=== PATIENT | female | born 1950 | race Caucasian/White ===

== ENCOUNTER 2019-11-09 10:44 | Outpatient (CLI) | payer MEDICARE, OTHER, SELFPAY ==
--- NOTE | 2019-11-09 10:59 | MM_ITS ---
WS: [id number] SCREENING DIGITAL MAMMOGRAM WITH CAD HISTORY: SCREENING COMPARISON: 07/14/2018, 06/22/2018, 04/09/2017 Bilateral CC and MLO views submitted. Computer aided detection analyzed. Breast composition: There are scattered areas of fibroglandular density. No suspicious masses, microc alcifications or architectural distortion. Scattered asymmetries within each breast are stable. MM/[place] [id number] IMPRESSION: BI-RADS: 2-Benign FOLLOW UP: 1 Year Follow-up
== END 2019-11-09 10:45 | disposition home or self-care (01) ==
PROVIDERS: Family Provider Nurse Practitioner Family; PCP Family Medicine; Visit Provider Nurse Practitioner Family
DX: Z12.31 Encounter for screening mammogram for malignant neoplasm of breast (principal)
CPT/HCPCS: 77067

== ENCOUNTER → 2019-12-22 10:24 | Outpatient (BNVA) | payer MEDICARE, OTHER, SELFPAY | PROVIDERS: Family Provider Nurse Practitioner Family; PCP Internal Medicine; Visit Provider Nurse Practitioner | DX: F33.2 Major depressive disorder, recurrent severe without psychotic features (principal) | CPT/HCPCS: 90832; 99214 ==

== ENCOUNTER 2019-12-29 07:03 | Outpatient (CLI) | payer MEDICARE, OTHER, SELFPAY ==
--- NOTE | 2019-12-29 07:19 | ECG_ITS ---
NAME OF STUDY: LEXISCAN SESTAMIBI STRESS TEST INDICATION: Chest Pain PROCEDURE: At the baseline, the blood pressure was 138/106 mmHg, oxygen saturation 97% with a heart rate of 68 bpm. The electrocardiogram showed normal sinus rhythm, normal axis with normal ST and T's. The Lexiscan was infused over a period of 20 seconds. A total of 0.4 milligrams of Lexiscan was infused. The stress phase was continued for a total of 5 minutes. Heart rate at the end of the stress phase was 87 bpm, oxygen saturation 95% with a blood pressure 150/97 mmHg. The EKG at the peak infusion revealed no significant ST-T wave changes. Sestamibi was injected 20 seconds after the Lexiscan infusion. Blood pressure at the end of the recovery phase was 148/98 mmHg, oxygen saturation 95% with a heart rate of 85 beats per minute. CONCLUSION: 1. Normal EKG response to LexiScan infusion. 2. No LexiScan induced chest pain or cardiac arrhythmia. 3. Normal blood pressure and heart rate response. 4. Sestamibi/sestamibi perfusion scan pending; see separate report. Electronically Signed On 01-03-2020 13:43:11 CDT by Hetal Mason M.D. [id number]
--- NOTE | 2019-12-29 07:20 | NMCV_ITS ---
NM katharine perf SPECT r/s* [id number] Makayla Palmer Age: 69 Gender: F : 1950 Exam Date: 12/29/2019 08:45 Ordering Phys: Polly Morales [employer]OLITION EXPERT Technologist: VJ Lott Exam Location: [facility] Indications: CHEST PAIN STRESS TEST Please see separate stress test report in [facility] for full findings IMAGE PROTOCOL Rest/Stress 1 Lexiscan Day Radiopharmaceutical Dose (mCi) Administration Site Administered by Rest: Tc-99m 10.7 IV VJ Mandujano Sestamibi Stress:Tc-99m 31.7 IV VJ Mandujano Sestamibi Rest: 12/29/2019 60 Discovery 630 Stress: 12/29/2019 Discovery 630 0.4mg Lexiscan. Images obtained in supine and prone position. SPECT RESULTS Technical Quality: Excellent Raw Data Analysis: Normal Image Corrections: No attenuation or motion correction applied Summed Stress Score: 1 Summed Rest Score: 1 Summed Difference Score: 0 PERFUSION FINDINGS Medium-size area of fixed perfusion defect noted in the anteroseptal region from mid to distal segment suggestive of old myocardial infarction versus scarring. FUNCTIONAL RESULTS (calculated via Gated SPECT) Stress Image LV EF (%): 73 Stress EDV (mL):86 TID: 1.02 Stress ESV (mL):23 Rest Image LV EF (%): 73 FUNCTIONAL FINDINGS: There is normal left ventricular systolic function. IMPRESSIONS Medium-size area of old myocardial infarction versus scarring noted in mid to distal anteroseptal wall without curt-infarct ischemia. There is no wall motion abnormality. Ejection fraction is normal 73%. EKG segment will be documented separately Rebecca Arredondo MD (Electronically Signed) Final Date: 29 December 2019 19:10 S
[2019-12-29 07:35] VITALS: BMI 36.6
[2019-12-29] MEDS: regadenoson 0.4 Mg/5 ml Syringe IVP (09:58)
[2019-12-29 10:20] VITALS: BP 151/95; PULSE 84
== END 2019-12-29 07:04 | disposition home or self-care (01) ==
LOC: CDL 07:05
PROVIDERS: Family Provider Nurse Practitioner Family; PCP Internal Medicine; Visit Provider Nurse Practitioner Family
DX: I25.2 Old myocardial infarction (principal); R07.9 Chest pain, unspecified
CPT/HCPCS: 78452; 93017; A9500; J2785

== ENCOUNTER 2019-12-30 14:36 | Outpatient (CLI) | payer MEDICARE, OTHER, SELFPAY ==
--- NOTE | 2019-12-30 14:48 | XR_ITS ---
WS: [id number] SCREENING DEXA SCAN [employer] CLINICAL INFORMATION: OSTEOPOROSIS SCREENING, ASYMPTOMATIC POSTMENOPAUSAL STATUS COMPARISON: February 02, 2018 FINDINGS: Left forearm bone mineral density measures 0.75 g/sq cm with a T score -1.4 and Z score of 0.1 Left femoral neck bone mineral density measures 0.779 g/cm2. This corresponds to a T score of -1.8 an d Z score of -1.0. Right femoral neck bone mineral density measures 0.733 g/cm2. This corresponds to a T score -2.2of an d Z score of -1.4. Mean femoral neck bone mineral density measures 0.756 g/cm2. This corresponds to a T score of -2.0 an d Z score of -1.2. XR/XR DEXA axial skeleton* [id number] IMPRESSION: Osteopenia Patient's FRAX calculated 10 year probability for major osteoporotic fracture i s 17.9 % and osteoporotic hip fracture is 3.1%. Bone mineral density in the forearm has decreased -5.4% and increased 4.4% in t he femoral necks since 2018.
== END 2019-12-30 14:37 | disposition home or self-care (01) ==
LOC: RADWPI 14:40
PROVIDERS: Family Provider Nurse Practitioner Family; PCP Internal Medicine; Visit Provider Internal Medicine
DX: Z13.820 Encounter for screening for osteoporosis (principal); Z78.0 Asymptomatic menopausal state
CPT/HCPCS: 77080

== ENCOUNTER → 2020-01-12 09:20 | Outpatient (BNVA) | payer MEDICARE, OTHER, SELFPAY | PROVIDERS: Family Provider Nurse Practitioner Family; PCP Internal Medicine; Visit Provider Nurse Practitioner | DX: F33.2 Major depressive disorder, recurrent severe without psychotic features (principal) | CPT/HCPCS: 99213 ==

== ENCOUNTER 2020-02-09 11:27 | Outpatient (CLI) | payer MEDICARE, OTHER, SELFPAY ==
--- NOTE | 2020-02-09 11:34 | XR_ITS ---
WS: [id number] RIGHT RIBS, MULTIPLE VIEWS WITH PA CHEST HISTORY: RIB TENDERNESS COMPARISON: 10/06/2019 Lungs and mediastinum: Mild hyperinflated lungs. No pneumothorax or pulmonary contusion. Ribs: No rib fractures or bone destruction identified. XR/XR ribs RT mn 3V w CXR1V [id number] IMPRESSION: No RIGHT rib fractures identified.
== END 2020-02-09 11:28 | disposition home or self-care (01) ==
LOC: RADWPI 11:32
PROVIDERS: Family Provider Nurse Practitioner Family; PCP Internal Medicine; Visit Provider Internal Medicine
DX: R07.81 Pleurodynia (principal)
CPT/HCPCS: 71101

== ENCOUNTER → 2020-02-22 07:41 | Outpatient (BNVA) | payer MEDICARE, OTHER, SELFPAY | PROVIDERS: Family Provider Nurse Practitioner Family; PCP Internal Medicine; Visit Provider Nurse Practitioner | DX: F33.2 Major depressive disorder, recurrent severe without psychotic features (principal) | CPT/HCPCS: 99214 ==

== ENCOUNTER → 2020-02-27 08:30 | Outpatient (BNVA) | payer MEDICARE, OTHER, SELFPAY | PROVIDERS: Family Provider Nurse Practitioner Family; PCP Internal Medicine; Referring Provider Internal Medicine; Visit Provider Podiatrist Foot & Ankle Surgery | DX: M21.42 Flat foot [pes planus] (acquired), left foot (principal); M21.41 Flat foot [pes planus] (acquired), right foot; M85.872 Other specified disorders of bone density and structure, left ankle and foot; M85.871 Other specified disorders of bone density and structure, right ankle and foot; M20.12 Hallux valgus (acquired), left foot; M20.11 Hallux valgus (acquired), right foot | CPT/HCPCS: 73630 ==

== ENCOUNTER 2020-03-05 15:56 | Outpatient (CLI) | payer MEDICARE, OTHER, SELFPAY ==
--- NOTE | 2020-03-05 16:02 | USCV_ITS ---
Makayla Palmer Age: 69 Gender: F : 1950 Exam Date: 03/05/2020 16:16 Ordering Phys: Shellie Jarvis MD Technologist: Justice Tejada Exam Location: [facility] [place] Indication: EF BP: 125 / 80 HR: 76 Rhythm: Sinus Technical Quality: Fair MEASUREMENTS (Male / Female) Normal Values 2D ECHO LV Diastolic Diameter PLAX 4.2 cm 4.2 - 5.9 / 3.9 - 5.3 cm LV Systolic Diameter PLAX 2.8 cm IVS Diastolic Thickness 1.2 cm 0.6 - 1.0 / 0.6 - 0.9 cm IVS Systolic Thickness 1.2 cm LVPW Diastolic Thickness 0.8 cm 0.6 - 1.0 / 0.6 - 0.9 cm LVPW Systolic Thickness 1.1 cm LVOT Diameter 2.1 cm LV Ejection Fraction 2D Teich 63.1 % LV Ejection Fraction MOD 2C 67.5 % LV Ejection Fraction 2C AL 68.4 % LA Diameter 3.8 cm LA Width 3.9 cm LA Height 4.5 cm RA Width 3.1 cm RA Height 3.7 cm Aorta at Sinotubular Diameter 2.7 cm M-MODE LV Diastolic Diameter MM 4.6 cm 4.2 - 5.9 / 3.9 - 5.3 cm LV Systolic Diameter MM 2.7 cm LV Ejection Fraction MM Teich 73.5 % IVS Diastolic Thickness MM 0.9 cm 0.6 - 1.0 / 0.6 - 0.9 cm IVS Systolic Thickness MM 1.4 cm LVPW Diastolic Thickness MM 1.1 cm 0.6 - 1.0 / 0.6 - 0.9 cm LVPW Systolic Thickness MM 1.5 cm RV Diastolic Diameter MM 0.3 cm Aortic Annulus Diameter 3.3 cm LA Ao Ratio MM 1.1 MV E Point Septal Separation 0.8 cm DOPPLER AV Peak Velocity 204.0 cm/s LVOT Peak Velocity 146.0 cm/s AV Area Cont Eq vti 2.3 cm squared AV Area Cont Eq pk 2.4 cm squared MV Area PHT 4.3 cm squared Mitral E to A Ratio 0.9 MV E' Velocity 12.0 cm/s Mitral E to MV E' Ratio 8.8 Mitral E to LV E' Lateral Ratio 6.9 Mitral E to LV E' Septal Ratio 12.4 TR Peak Velocity 209.0 cm/s TR Peak Gradient 17.5 mmHg TV Peak E Velocity 79.0 cm/s Right Atrial Pressure 3.0 mmHg Pulmonary Artery Systolic Pressu 20.5 mmHg FINDINGS Left Ventricle Normal left ventricular size and systolic function, EF 60 %. No regional wall motion abnormalities. Right Ventricle Normal right ventricular size and systolic function. Right Atrium The right atrium is normal in size. Left Atrium The left atrium is normal in size. Mitral Valve Thickened mitral valve. Mild mitral annular calcification. Aortic Valve Thickened aortic valve. Tricuspid Valve Mild tricuspid valve regurgitation. Estimated pulmonary artery peak systolic pressure was 21 mmHg Pulmonic Valve Structurally normal pulmonic valve without significant stenosis. There is no pulmonic regurgitation. Pericardium Normal pericardium without effusion. Aorta Normal aortic annulus size. CONCLUSIONS Normal left ventricular size and systolic function, EF 60 %. No regional wall motion abnormalities. Thickened mitral valve. Mild mitral annular calcification. Thickened aortic valve. Mild tricuspid valve regurgitation. Estimated pulmonary artery peak systolic pressure was 21 mmHg There is no pericardial effusion. There are no intracardiac masses. Possibly no significant change, compared to the previous study from 11/10/2017-exact comparison is difficult because of the change in the technical quality Dr Mallory Hudson MD FAC (Electronically Signed) Final Date: 06 Mar 2020 17:58 S
== END 2020-03-05 15:57 | disposition home or self-care (01) ==
LOC: RAD 16:00
PROVIDERS: PCP Internal Medicine; Visit Provider Internal Medicine
DX: I50.9 Heart failure, unspecified (principal); I08.1 Rheumatic disorders of both mitral and tricuspid valves
CPT/HCPCS: 93306

== ENCOUNTER 2020-03-16 15:02 | Outpatient (CLI) | payer MEDICARE, OTHER, SELFPAY ==
--- NOTE | 2020-03-16 15:08 | CT_ITS ---
WS: [id number] CT NECK TECHNIQUE: Noncontrast CT of the neck with coronal and sagittal reformatted images. CLINICAL INFORMATION: OTALGIA RIGHT EAR COMPARISON: CTA 07/06/2017 and 03/05/2017. DLP: 2699.[address] scans at [facility] use at least one of these dose optimization techniques: automat ed exposure control; mA and/or kV adjustment per patient size (includes targeted exams where dose is matched to clinical indication); or iterative reconstruction. FINDINGS: Parotid glands are normal. Submandibular glands are normal. No evidence of supraglottic or glottic ma ss. Normal parapharyngeal fat. Stable calcified lower pole right thyroid nodule measuring 2.1 cm. Sma ll nodules in the left thyroid lobe. Findings appear stable since 2017. Tongue base appears normal. Normal parapharyngeal fat. No evidence of supraglottic or glottic mass. N ormal epiglottis. Normal piriform sinuses. Subglottic airway is normal. Partially visualized intracranial contents are normal. Moderate to advanced spondylitic changes cervi mary spine with moderate central canal stenosis at C5-C6 and C6-C7. CT/CT neck wo con [id number] IMPRESSION: 1. Mastoid air cells are well aerated. Posterior nasopharynx is normal in appe arance. Normal parapharyngeal fat. 2. Salivary glands are normal in appearance. 3. No evidence of supraglottic or glottic mass. Normal subglottic airway. 4. No cervical lymphadenopathy. 5. Stable calcified right thyroid nodule measuring 2.0 CM. 6. Paranasal sinuses are well aerated. 7. Moderate central canal stenosis due to disc osteophyte complexes at C5-C6 a nd C6-C7. This can be followed up with MRI without gadolinium enhancement.
== END 2020-03-16 15:03 | disposition home or self-care (01) ==
LOC: RADWPI 15:06
PROVIDERS: PCP Internal Medicine; Visit Provider Specialist
DX: H92.01 Otalgia, right ear (principal); E04.1 Nontoxic single thyroid nodule; M25.78 Osteophyte, vertebrae; M48.02 Spinal stenosis, cervical region
CPT/HCPCS: 70490

== ENCOUNTER → 2020-03-21 07:43 | Outpatient (BNVA) | payer MEDICARE, OTHER, SELFPAY | PROVIDERS: PCP Internal Medicine; Visit Provider Nurse Practitioner | DX: F33.2 Major depressive disorder, recurrent severe without psychotic features (principal) | CPT/HCPCS: 99214 ==

== ENCOUNTER 2020-03-28 08:31 | Outpatient (CLI) | payer MEDICARE, OTHER, SELFPAY ==
--- NOTE | 2020-03-28 08:46 | CT_ITS ---
WS: [id number] CT CHEST TECHNIQUE: Noncontrast CT of the chest with coronal and sagittal reformatted images. CLINICAL INFORMATION: SHORTNESS OF BREATH COMPARISON: May 06, 2018 and CTA chest November 25, 2018 DLP: 924.[address] scans at [facility] use at least one of these dose optimization techniques: automat ed exposure control; mA and/or kV adjustment per patient size (includes targeted exams where dose is matched to clinical indication); or iterative reconstruction. FINDINGS: Mild chronic emphysematous changes. No acute pulmonary infiltrates. Large esophageal hiatal hernia wi th partial intrathoracic stomach appears unchanged since November 25, 2018. No suspicious pulmonary p arenchymal abnormalities. No axillary lymphadenopathy. In particular no pathologic mass or lesion in the region of the right ax illa. No mediastinal or hilar lymphadenopathy. Calcified right thyroid nodule appears unchanged from previous measuring 2.1 CM. Adrenal glands are normal. Cholelithiasis. Postoperative changes pedicle screw fixation partially visualized. Disc space narrowing T12-L1 with v acuum disc phenomenon and endplate degenerative changes. CT/CT chest wo con [id number] IMPRESSION: 1. Mild chronic emphysematous changes. No suspicious pulmonary parenchymal abn ormalities. 2. Large esophageal hiatal hernia appears unchanged with partial intrathoracic stomach. 3. No mediastinal or hilar lymphadenopathy. 4. No suspicious lesions in the right axillary region. No axillary or mediasti nal lymphadenopathy. 5. Calcified nodule right thyroid measuring 2.1 cm is unchanged. 6. Cholelithiasis. This can be followed up with ultrasound.
== END 2020-03-28 08:32 | disposition home or self-care (01) ==
LOC: RAD 08:36 → RADWPI 08:45
PROVIDERS: Family Provider Internal Medicine; PCP Internal Medicine; Visit Provider Internal Medicine
DX: R06.02 Shortness of breath (principal); J43.9 Emphysema, unspecified; K44.9 Diaphragmatic hernia without obstruction or gangrene; E04.1 Nontoxic single thyroid nodule; K80.20 Calculus of gallbladder without cholecystitis without obstruction
CPT/HCPCS: 71250

== ENCOUNTER 2020-04-02 06:00 | Outpatient (RCR) | payer MEDICARE, OTHER, SELFPAY | END 2020-06-05 23:00 | disposition home or self-care (01) | LOC: SPT 06:00 | PROVIDERS: PCP Internal Medicine; Referring Provider Internal Medicine; Visit Provider Internal Medicine | DX: G89.29 Other chronic pain (principal); R20.2 Paresthesia of skin; M54.89 Other dorsalgia | CPT/HCPCS: 97110; 97140; 97161; 97164; 97530 ==

== ENCOUNTER 2020-04-11 15:35 | Outpatient (CLI) | payer MEDICARE, OTHER, SELFPAY ==
--- NOTE | 2020-04-11 | XRR_ITS ---
PROCEDURE INFORMATION: Exam: XR Lumbosacral Spine, 2 or 3 Views Exam date and time: 04/11/2020 4:09 PM Age: 69 years old Clinical indication: Low back pain; Additional info: Pain in back TECHNIQUE: Imaging protocol: XR of the lumbosacral spine, 2 or 3 views. COMPARISON: CR Pelvis AP 1 or 2 views* [id number] 05/04/2018 5:01 PM FINDINGS: Vertebrae: Generalized osteopenia and osteoarthritis is seen. There is 1st degree spondylolisthesis L5-S1 there is fusion present L4-L5, L3-L4, L2-L3 vertebral levels. Postsurgical hardware is seen a with metallic transpedicular screws and rods in place at the T12 to the L5 level. The hardware does not show deformity displacement or fracture. Laminectomy defect is seen in the lower lumbar spine. Soft tissues: Unremarkable. XR/XR lumbar spine 2-3V* [id number] IMPRESSION: 1. Osteopenia and osteoarthritis. 2. Spondylolisthesis L5-S1. 3. Operative fusion at multiple levels as described. 4. Metallic hardware at multiple levels as described. 5. Laminectomy defects lower lumbar spine.
--- NOTE | 2020-04-11 | XRR_ITS ---
PROCEDURE INFORMATION: Exam: XR Thoracic Spine, 3 Views Exam date and time: 04/11/2020 4:09 PM Age: 69 years old Clinical indication: Pain in thoracic spine; Additional info: Pain in back TECHNIQUE: Imaging protocol: XR of the thoracic spine, 3 views. COMPARISON: No relevant prior studies available. FINDINGS: Vertebrae: There is osteopenia and moderate osteoarthritis seen. No acute fracture. Normal alignment. Metallic transpedicular screws and rods are present in the upper lumbar spine without evidence of displacement or fracture. Soft tissues: Unremarkable. XR/XR thoracic spine 3V* [id number] IMPRESSION: 1. No acute bone abnormality. 2. Osteopenia and osteoarthritis of the dorsal spine 3. Postsurgical hardware is lumbar spine
== END 2020-04-11 15:36 | disposition home or self-care (01) ==
LOC: RAD 15:41
PROVIDERS: PCP Internal Medicine; Visit Provider Internal Medicine
DX: M54.9 Dorsalgia, unspecified (principal); M85.88 Other specified disorders of bone density and structure, other site; M47.899 Other spondylosis, site unspecified; M54.5 Low back pain; M43.17 Spondylolisthesis, lumbosacral region; Z98.1 Arthrodesis status
CPT/HCPCS: 72072; 72100

== ENCOUNTER 2020-04-18 06:00 | Outpatient (RCR) | payer MEDICARE, OTHER, SELFPAY | END 2020-05-18 23:59 | disposition home or self-care (01) | LOC: SPT 06:00 | PROVIDERS: PCP Internal Medicine; Referring Provider Internal Medicine; Visit Provider Internal Medicine | DX: R20.2 Paresthesia of skin (principal); M54.89 Other dorsalgia | CPT/HCPCS: 97110; 97530 ==

== ENCOUNTER → 2020-05-07 11:31 | Outpatient (BNVA) | payer MEDICARE, OTHER, SELFPAY | PROVIDERS: PCP Internal Medicine; Visit Provider Dermatology | DX: L72.0 Epidermal cyst (principal); D23.9 Other benign neoplasm of skin, unspecified; L82.1 Other seborrheic keratosis; L82.0 Inflamed seborrheic keratosis; L73.8 Other specified follicular disorders | CPT/HCPCS: 10040; 17000; 17003; 99203 ==

== ENCOUNTER → 2020-05-17 07:37 | Outpatient (BNVA) | payer MEDICARE, OTHER, SELFPAY | PROVIDERS: PCP Internal Medicine; Visit Provider Nurse Practitioner | DX: F33.2 Major depressive disorder, recurrent severe without psychotic features (principal); F41.1 Generalized anxiety disorder | CPT/HCPCS: 99213 ==

== ENCOUNTER → 2020-07-11 07:35 | Outpatient (BNVA) | payer MEDICARE, OTHER, SELFPAY | PROVIDERS: PCP Internal Medicine; Visit Provider Nurse Practitioner | DX: F33.2 Major depressive disorder, recurrent severe without psychotic features (principal); F41.1 Generalized anxiety disorder | CPT/HCPCS: 99214 ==

== ENCOUNTER → 2020-08-16 09:16 | Outpatient (BNVA) | payer MEDICARE, OTHER, SELFPAY | PROVIDERS: PCP Internal Medicine; Visit Provider Nurse Practitioner | DX: F33.2 Major depressive disorder, recurrent severe without psychotic features (principal) | CPT/HCPCS: 99214 ==

== ENCOUNTER → 2020-08-22 13:45 | Outpatient (BNVA) | payer MEDICARE, OTHER, SELFPAY | PROVIDERS: PCP Internal Medicine; Visit Provider Surgery | DX: Z11.59 Encounter for screening for other viral diseases (principal); D64.9 Anemia, unspecified | CPT/HCPCS: 87635 ==

== ENCOUNTER 2020-08-28 09:07 | Day surgery (SDC) | payer MEDICARE, OTHER, SELFPAY ==
[2020-08-23 13:06] VITALS: BMI 34.9
--- NOTE | 2020-08-28 09:10 | P.HP_ITS ---
Same Day Surgery H&P Indication for Procedure/HPI DATE OF PROCEDURE: August 28, 2020 CHIEF COMPLAINT/INDICATIONFOR SURGICAL PROCEDURE: anemia PREOP DIAGNOSIS: anemia PLANNED PROCEDRUE: Operation Date: 08/28/20 10:00 Proposed Procedures p EGD [id number] D64.9(Not Applicable) - Alne Hurtado MD s Colonoscopy(Not Applicable) - Alen Hurtado MD Medications/Allergies* Home Medications Medication Instructions Recorded Confirmed Type atorvastatin 10 mg tablet 10 mg PO DAILY 12/22/19 08/23/20 History carvedilol 6.25 mg tablet 6.25 mg PO BID 01/11/20 08/23/20 History cholecalciferol (vitamin D3) 1,250 1,250 mcg PO DAILY 01/11/20 08/23/20 History mcg (50,000 unit) capsule losartan 25 mg tablet 50 mg PO DAILY tab 01/11/20 08/23/20 History calcium carbonate 600 mg calcium 600 mg PO DAILY 02/27/20 08/23/20 History (1,500 mg) tablet alendronate 70 mg tablet 70 mg PO .weekly tab 04/16/20 08/23/20 History cetirizine 10 mg tablet 10 mg PO DAILY PRN tab 07/27/20 08/23/20 History iron 325 mg PO BID 08/23/20 08/23/20 History Allergies/Adverse Reactions Allergy/AdvReac Type Severity Reaction Status Date / Time Iodinated Contrast Media Allergy ALGY-Swell Verified 08/15/20 10:46 Lip/Tongue/Throat Penicillins Allergy ALGY-Hives Verified 08/15/20 10:46 hydrocodone AdvReac ADR-Itching Verified 08/15/20 10:46 Pertinent History/Comorbid Conditions* Medical History (Updated 07/27/20 @ 15:07 by Alen Hurtado MD) Chronic back pain Congestive heart failure Diabetes mellitus Fibromyalgia Hiatal hernia Major depressive disorder, recurrent severe without psychotic features Myocardial infarct Osteoarthritis Osteopenia Sleep apnea Surgical History (Updated 07/27/20 @ 12:25 by Alen Hurtado MD) H/O esophagogastroduodenoscopy S/P bladder repair 2005 S/P carpal tunnel release S/P hysterectomy 2006 S/P left knee arthroscopy 2005 S/P lumbar fusion 05/29/16; 01/15/17 S/P rotator cuff repair Left S/P shoulder surgery Right S/P trigger finger release 2008 S/P wrist surgery bilateral Status post colonoscopy Family History (Updated 07/27/20 @ 12:17 by Shelby Blum LPN) Diabetes CAD (coronary artery disease) Cancer Father prostate, liver Mother breast and kidney Brother 2 brothers prostate, and one had breast cancer Hypertension Denies family history of Anesthesia complication Bleeding disorder Social History Smoking and tobacco status: never smoked Alcohol intake: never Household members: spouse Housing: House Marital status: 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
[2020-08-28 09:43] VITALS: BP 96/65; PULSE 79; RESP 18; TEMP 36.6; O2SAT 96
[2020-08-28] MEDS: sodium chloride 0.9% 1,000 ML 30 ML IV (09:46)
[2020-08-28 09:50] LABS: Glucose Point of Care 110 mg/dL (70-110)
--- NOTE | 2020-08-28 09:53 | ANES.PREANE2 ---
Pre-Anesthetic Assessment Pre-Anesthetic Assessment: Height/Weight: Height 1.55 m Weight 83.915 kg Temp Pulse Resp BP Pulse Ox 97.9 F 79 18 96/65 96 08/28/20 09:43 08/28/20 09:43 08/28/20 09:43 08/28/20 09:43 08/28/20 09:43 Preop Diagnosis: Anemia Proposed Procedure: Operation Date: 08/28/20 10:00 Proposed Procedures p EGD [id number] D64.9(Not Applicable) - Alen Hurtado MD s Colonoscopy(Not Applicable) - Alen Hurtado MD Familial anesthetic complications: None Was Beta Bryan taken within 24 hours: Yes Last intake: Intake Last Liquid Date 08/27/20 Last Liquid Time 22:00 Last Solid Date 08/26/20 Last Solid Time 22:00 Social: Social History: No alcohol and No tobacco Exam: Pre-Anes Outpt Exam: alert, oriented x 3, clear to auscultation bilaterally and regular rate & rhythm Airway: Cervical ROM: WNL MP: 3 Dentition: Full Pulmonary: Pulmonary: Sleep apnea CV/HEM: CV/HEM: CHF and PA Comments: NEgative stress test 01/05 Normal EF and mod Pulm HTn on echo GI: GI: Hiatus hernia Metabolic: Metabolic: DM Anesthetic Plan: ASA status: 3 Anesthesia: MAC Risk of > 500 ml blood loss (7ml/kg in children): No Meds/Allergies Current Medications: Current Medications Generic Name Dose Route Start Last Admin Trade Name Freq PRN Reason Stop Dose Admin Sodium Chloride 1,000 mls @ 30 ml s/hr 08/28/20 09:15 08/28/20 09:46 Sodium Chloride 0.9% IV 30 mls/hr .Q24H GUILLERMINA Administration PFSH Anesthesia PFSH: Medical History (Updated 07/27/20 @ 15:07 by Alen Hurtado MD) Chronic back pain Congestive heart failure Diabetes mellitus Fibromyalgia Hiatal hernia Major depressive disorder, recurrent severe without psychotic features Myocardial infarct Osteoarthritis Osteopenia Sleep apnea Surgical History H/O esophagogastroduodenoscopy S/P bladder repair 2005 S/P carpal tunnel release S/P hysterectomy 2005 S/P left knee arthroscopy 2004 S/P lumbar fusion 05/29/16; 01/15/17 S/P rotator cuff repair Left S/P shoulder surgery Right S/P trigger finger release 2007 S/P wrist surgery bilateral Status post colonoscopy Family History Father Cancer prostate, liver Mother Cancer breast and kidney Brother Cancer 2 brothers prostate, and one had breast cancer Other CAD (coronary artery disease) Diabetes Hypertension Denies family history of Anesthesia complication Bleeding disorder Social History Smoking and tobacco status: never smoked Alcohol intake: never Household members: spouse Housing: House Marital status: 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
[2020-08-28 10:22] VITALS: BP 93/50; PULSE 72; RESP 16; TEMP 36.6; O2SAT 91
[2020-08-28 10:31] VITALS: BP 88/58; PULSE 74; RESP 18; O2SAT 97
--- NOTE | 2020-08-28 12:04 | ANE.PACU2 ---
Inpatient post-anesthesia follow up: Airway intact: Yes Vital signs: Temperature 97.9 F Pulse Rate 74 Respiratory Rate 18 Blood Pressure 88/58 Pulse Oximetry 97 Oxygen Delivery Me thod Nasal Cannula Oxygen Flow Rate 4 Fraction of Inspir ed Oxygen Hydration adequate: Yes Nausea and vomiting: No Mental status: Baseline
--- NOTE | 2020-08-28 17:33 | ANE.PACU2 ---
Inpatient post-anesthesia follow up: Airway intact: Yes Vital signs: Temperature 97.9 F Pulse Rate 74 Respiratory Rate 18 Blood Pressure 88/58 Pulse Oximetry 97 Oxygen Delivery Me thod Nasal Cannula Oxygen Flow Rate 4 Fraction of Inspir ed Oxygen Hydration adequate: Yes Nausea and vomiting: No Pain level: 1 Mental status: Baseline
== END 2020-08-28 10:55 | disposition home or self-care (01) ==
PROVIDERS: PCP Internal Medicine; Visit Provider Surgery
PROC: 0DJ08ZZ Inspection of Upper Intestinal Tract, Via Natural or Artificial Opening Endoscopic (ICD-10-PCS; CPT 43235; principal; 2020-08-28 10:00)
PROC: 0DJD8ZZ Inspection of Lower Intestinal Tract, Via Natural or Artificial Opening Endoscopic (ICD-10-PCS; CPT 45378; 2020-08-28 10:00)
DX: D64.9 Anemia, unspecified (principal); K44.9 Diaphragmatic hernia without obstruction or gangrene; K64.8 Other hemorrhoids; K57.30 Diverticulosis of large intestine without perforation or abscess without bleeding; I50.9 Heart failure, unspecified; E11.9 Type 2 diabetes mellitus without complications; M79.7 Fibromyalgia; F33.9 Major depressive disorder, recurrent, unspecified; I25.2 Old myocardial infarction; M19.90 Unspecified osteoarthritis, unspecified site; M81.0 Age-related osteoporosis without current pathological fracture; G47.30 Sleep apnea, unspecified
CPT/HCPCS: 12345; 36416; 43235; 45378; 82962; J3010; J7030

== ENCOUNTER → 2020-09-04 09:21 | Day surgery (SDC) | payer MEDICARE, OTHER, SELFPAY ==
[2020-09-04] VITALS (12 sets, daily range): BP systolic 93–114; BP diastolic 45–62; PULSE 66–73; RESP 18; TEMP 36.7–37.4; O2SAT 96–99; BMI 35.3
[2020-09-04] MEDS: acetaminophen 500 mg Tablet PO (11:06)
[2020-09-04] MEDS: diphenhydrAMINE 25 mg Capsule PO (11:07)
[2020-09-04] MEDS: FUROsemide 10 mg/mL SDV 2mL 20 MG IVP (14:15)
== END ==
PROVIDERS: PCP Internal Medicine; Visit Provider Internal Medicine
DX: D62 Acute posthemorrhagic anemia (principal); I50.9 Heart failure, unspecified
CPT/HCPCS: 36415; 36430; 86850; 86900; 86920; 96375; J1940; P9016

== ENCOUNTER 2020-09-06 08:50 | Outpatient (CLI) | payer MEDICARE, OTHER, SELFPAY ==
[2020-09-06 10:04] LABS: Basophils % 0.5 %; Eosinophils # 0.1 10^3/uL (0.0-0.8); Eosinophils % 1.4 %; Hematocrit 34.2 % (37.0-47.0); Hemoglobin 10.5 g/dL (11.5-15.3); Lymphocytes # 1.3 10^3/uL (0.8-4.8); Mean Corpuscular HGB Conc 30.7 g/dL (30.0-36.0); Mean Corpuscular Hemoglobin 30.9 pg (28.0-34.0); Mean Corpuscular Volume 100.6 fL (81-99); Monocytes # 0.3 10^3/uL (0.2-0.9); Monocytes % 5.3 %; Neutrophils # 4.06 10^3/uL (1.8-7.7); Neutrophils % 69.6 %; Nucleated Red Blood Cells % 0 %; Platelet Count 286 10^3/cmm (130-400); Red Cell Distribution Width 18.3 % (12.1-15.1); White Blood Count 5.8 10^3/uL (4.0-10.0)
--- NOTE | 2020-09-06 13:37 | ONC CON_ITS ---
Dr. Becerril New Patient Note Patient: Makayla Palmer Unit #: [id number]: 1950 Dicatated By: Nena Becerril M.D.Date of Visit: Sep 06, 2020 Onc MED New Patient/Consult Referring Physician: Dr. INDIRA TAFOYA M.D. History of Present Illness: Ms. Makayla Palmer, is a 70-year-old female with history of anemia in her teen years , as per patient that time she was treated with iron supplements and after that she had no history of anemia even during during pregnancies, as per patient , in 2016 she underwent back to back surgeries for her lumbar fusion and postop period Was complicated by open wound and that time she required blood transfusion. And since then she Was doing reasonably well untill about February 2020 when she started experiencing generalized weakness and fatigue which was progressive, and her lab work-up done on August 15, 2020 showed white blood count was 6.1 hemoglobin 9.3 hematocrit 29.5 and platelets 324,000 with normal differential , MCV was 93, creatinine 0.59 and iron studies showed iron saturation 23%, iron 89, TIBC 380, she was referred to GI for EGD and colonoscopy which was done on August 28, 2020 and both were unremarkable she was started on oral iron and patient was already on multivitamin, and her follow-up labs done on September 03, 2020 showed white blood count 4.6 hemoglobin 7.5 hematocrit 24.3 platelets 311,000 MCV 100 with a normal differential, bilirubin was 0.3 serum creatinine was 0.63, . White blood count 4.6 as per patient she was given 2 units of packed RBCs, she tolerated well but there was no improvement in her generalized weakness and fatigue even after blood transfusion. , As per patient she has noticed some blood in her stool, thought that was due to hemorrhoids and now with darker stools due to oral iron but no fresh blood per rectum. Denies any jaundice, denies any hematuria or vaginal bleeding, denies any night sweats, denies any weight loss, denies any recurrent fever.Denies any shortness of breath at rest but dyspnea on exertion denies any palpitation. No chest pain. Denies any history of gastric bypass. Past Medical History: Ms. Palmer's medical history consists of chronic back pain, congestive heart failure, depression, fibromyalgia, hiatal hernia, myocardial infarction, osteoarthritis, osteopenia, sleep apnea, and type II diabetes. Past Surgical History: Ms. Palmer's surgical/procedural history consists of bilateral wrist surgery, carpal tunnel releasse, colonoscopy, left rotator cuff repair, lumbar fusion x 2, right shoulder surgery, trigger finger release in 2007, hysterectomy in 2005, and left knee arthroscopy in 2004. Medications: There is no information available for Current Medications - Patient. Allergies: HYDROcodone-Acetaminophen, Iodinated Contrast Media, and Penicillins. 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 Ms. Palmer has never smoked. She has no history of drinking. Ms. Palmer reports the following support systems: lives with spouse, significant other, family, or friends, lives in own house, and adequate transportation available for expected visits. Family History: Ms. Palmer's mother at age 89: breast cancer, and kidney cancer. Ms. Palmer's father at age 70: liver cancer. Ms. Palmer has 3 brothers: 2 alive, 1 . Ms. Palmer's first brother's breast cancer. Another brother's prostate cancer. Another brother's prostate cancer. Review Of Symptoms: Review of Systems is not available for this patient. Vital Signs: Performed on Sep 06, 2020 12:09: 0, 35.79 (HIGH), 1.85 sq.m, 61.00 in, 98 %, 75 /min, 18 /min, 123/63 mm(hg), 97.5 F (LOW), and 189.4 lbs (HIGH). Performance Status: 2 - Ambulatory/capable of all self-care, unable to perform any work activities. Up and about more than 50% of waking hours. (ECOG) Physical Examination: ENMT - No mouth sores, no thrush, no jaundice, Respiratory - Lungs are clear to auscultation, Cardiovascular - Regular rate and rhythm of heart, Abdomen - Soft, bowel sounds present, Extremities - No visible edema. Lab/Imaging: Most recent lab results are not available for this patient. Impression: Normocytic normochromic anemia etiology unclear could be multifactorial including nutritional e.g. iron combined with B12 deficiency or functional iron deficiency or considering her age underlying myelodysplasia cannot be ruled out or anemia of chronic disease Osteoarthritis Sleep apnea Diabetes mellitus Congestive heart failure/myocardial infarct. Plan: Discussed with patient regarding her labs white blood count 5.8 hemoglobin 10.5 hematocrit 34.2 platelets 286,000 MCV 100.6 with a normal differential Clinically, patient doing reasonably well now with generalized weakness and fatigue, no improvement even after 2 units of packed RBC given for hemoglobin 7.5 g with that her hemoglobin has improved to 10.5 g and patient is on oral iron since last month, tolerating well Etiology for anemia is unclear as her iron studies done earlier showed no obvious sign of iron deficiency but she may have functional iron deficiency and now on oral iron, tolerating well, at this point will continue same and she will return to clinic in 2 weeks with CBC iron studies B12 level, folate level and reticulocyte count as CBC shows mild macrocytosis which could be due to reticulocytosis or B12/folate deficiency or due to MDS. If there is no improvement in her hemoglobin or further drop in her hemoglobin with a normal iron studies, B12 folic acid level will consider bone marrow evaluation. As far as generalized weakness and fatigue is concerned, it may be due to other reasons as with blood transfusion patient had no improvement in her symptoms ,so anemia may not be the only reason for generalized weakness and fatigue , other possibilities could be malfunctioning CPAP machine, or endocrinopathy Or stress Signed By: Nena Becerril M.D. <<Signature on File>>
== END 2020-09-06 08:51 | disposition home or self-care (01) ==
PROVIDERS: PCP Internal Medicine; Visit Provider Internal Medicine Hematology & Oncology
DX: D64.9 Anemia, unspecified (principal); D75.89 Other specified diseases of blood and blood-forming organs; R53.1 Weakness; R53.83 Other fatigue; M19.90 Unspecified osteoarthritis, unspecified site; G47.30 Sleep apnea, unspecified; E11.9 Type 2 diabetes mellitus without complications; I50.9 Heart failure, unspecified; I25.2 Old myocardial infarction
CPT/HCPCS: 36415; 85025; 99203

== ENCOUNTER 2020-09-20 05:45 | Outpatient (CLI) | payer MEDICARE, OTHER, SELFPAY ==
[2020-09-20 12:34] LABS: Basophils % 0.6 %; Eosinophils # 0.1 10^3/uL (0.0-0.8); Eosinophils % 1.4 %; Hematocrit 34.3 % (37.0-47.0); Hemoglobin 10.9 g/dL (11.5-15.3); Lymphocytes # 1.1 10^3/uL (0.8-4.8); Lymphocytes % 23.5 %; Mean Corpuscular HGB Conc 31.8 g/dL (30.0-36.0); Mean Corpuscular Hemoglobin 30.3 pg (28.0-34.0); Mean Corpuscular Volume 95.3 fL (81-99); Monocytes # 0.6 10^3/uL (0.2-0.9); Monocytes % 12.3 %; Neutrophils # 3.01 10^3/uL (1.8-7.7); Nucleated Red Blood Cells % 0 %; Platelet Count 250 10^3/cmm (130-400); Red Cell Distribution Width 14.1 % (12.1-15.1); White Blood Count 4.9 10^3/uL (4.0-10.0)
[2020-09-20 12:59] LABS: Alanine Aminotransferase 17 U/L (0-33); Albumin Level 4.1 g/dL (3.5-5.2); Alkaline Phosphatase 69 IU/L (35-105); Anion Gap 15.1 (5-19); Aspartate Amino Transferase 20 U/L (0-32); Blood Urea Nitrogen 15 mg/dL (8-23); Calcium 9.4 mg/dL (8.5-10.5); Carbon Dioxide 23 mmol/L (22-29); Chloride 103 mmol/L (98-107); Ferritin 23 ng/mL (15-150); Globulin 2.5 g/dL (1.3-4.6); Glomerular Filtration Rate 83.2 mL/min (90-130); Glucose 112 mg/dL (65-115); Iron 76 ug/dL (37-145); Osmolality Calculated 286 mOsm/kg (285-295); Percent Saturation 22.2 % (20-50); Potassium 4.1 mmol/L (3.5-5.1); Sodium 137 mmol/L (136-145); Total Bilirubin 0.4 mg/dL (0.15-1.2); Total Iron Binding Capacity 342 mcg/dl; Total Protein 6.6 g/dL (6.6-8.7); Unsaturated Iron Binding 266 ug/dL (112-347)
[2020-09-20 13:14] LABS: Vitamin B12 1018 pg/mL (232-1245)
[2020-09-20 13:57] LABS: Folate Level > 20.0 ng/mL (4.8-37.3)
== END 2020-09-20 05:46 | disposition home or self-care (01) ==
LOC: ONCMED 05:49
PROVIDERS: PCP Internal Medicine; Visit Provider Nurse Practitioner
DX: D50.9 Iron deficiency anemia, unspecified (principal)
CPT/HCPCS: 80053; 82607; 82728; 82746; 83540; 83550; 85025; 85045

== ENCOUNTER 2020-09-21 05:30 | Outpatient (CLI) | payer MEDICARE, OTHER, SELFPAY ==
--- NOTE | 2020-09-21 12:03 | ONC FU_ITS ---
Dr. Becerril follow up note Patient: Makayla Palmer Unit #: [id number]: 1950 Dicatated By: Nena Becerril M.D.Date of Visit:Sep 21, 2020 Onc Med Follow-up/Prog Note History of Present Illness: Ms. Makayla Palmer, is a 70-year-old female with history of anemia in her teen years , as per patient that time she was treated with iron supplements and after that she had no history of anemia even during during pregnancies, as per patient , in 2016 she underwent back to back surgeries for her lumbar fusion and postop period Was complicated by open wound and that time she required blood transfusion. And since then she Was doing reasonably well untill about February 2020 when she started experiencing generalized weakness and fatigue which was progressive, and her lab work-up done on August 15, 2020 showed white blood count was 6.1 hemoglobin 9.3 hematocrit 29.5 and platelets 324,000 with normal differential , MCV was 93, creatinine 0.59 and iron studies showed iron saturation 23%, iron 89, TIBC 380, she was referred to GI for EGD and colonoscopy which was done on August 28, 2020 and both were unremarkable she was started on oral iron and patient was already on multivitamin, and her follow-up labs done on September 03, 2020 showed white blood count 4.6 hemoglobin 7.5 hematocrit 24.3 platelets 311,000 MCV 100 with a normal differential, bilirubin was 0.3 serum creatinine was 0.63, . White blood count 4.6 as per patient she was given 2 units of packed RBCs, she tolerated well but there was no improvement in her generalized weakness and fatigue even after blood transfusion. , As per patient she has noticed some blood in her stool, thought that was due to hemorrhoids and now with darker stools due to oral iron but no fresh blood per rectum. Denies any jaundice, denies any hematuria or vaginal bleeding, denies any night sweats, denies any weight loss, denies any recurrent fever.Denies any shortness of breath at rest but dyspnea on exertion denies any palpitation. No chest pain. Denies any history of gastric bypass. Came for follow-up, denies any specific complaint except persistent generalized weakness and fatigue even at rest and sleepy most of the time. But denies any melena or hematochezia, denies any hemoptysis or hematemesis, denies any vaginal bleeding denies any jaundice. Patient said about 2 weeks ago she quit taking oral iron as she was told by PMD to hold it to rule out GI bleeding as oral iron was causing dark colored stools and with stopping oral iron her stool color came back to normal. Medications: Acetaminophen-Codeine 1 - 2 Tablet (of 300-30 mg) Oral q 1 to 2 hours PRN, Alendronate Sodium 1 Tablet (of 70 mg) Oral daily, Atorvastatin Calcium 1 Tablet (of 10 mg) Oral daily, Carvedilol 1 Tablet (of 6.25 mg) Oral daily, Cetirizine HCl 1 Tablet (of 10 mg) Oral daily, clonazePAM Tablet Oral PRN, DocQLace 1 Capsule (of 100 mg) Oral daily, hydrOXYzine Pamoate 1 Capsule (of 25 mg) Oral daily, Isosorbide Mononitrate ER 1 Tablet (of 30 mg) Tablet SR 24 HR Oral daily, Lexapro 1 Tablet (of 20 mg) Oral daily, Losartan Potassium 1 Tablet (of 50 mg) Oral daily, Multivitamin 1 Tablet Oral daily Allergies: HYDROcodone-Acetaminophen, Iodinated Contrast Media, and Penicillins. Review of Systems: Review of Systems is not available for this patient. Vital Signs: Performed on Sep 21, 2020 10:50 Height - 61.00 in Weight - 194.0 lbs (HIGH) BSA - 1.86 sq.m BMI - 36.66 (HIGH) Temperature - 99.0 F (HIGH) Pulse - 74 /min Respiration - 20 /min BP - 114/64 mm(hg) O2 Sat - 97 % Pain - 2 Performance Status: 1 - No physically strenuous activity, but ambulatory and able to carry out light or sedentary work (e.g. office work, light house work). (ECOG) Physical Examination: ENMT - No mouth sores, no thrush, no jaundice, Respiratory - Lungs are clear to auscultation, Cardiovascular - Regular rate and rhythm of heart, Abdomen - Soft, bowel sounds present, Extremities - No visible edema or rash. Lab/Imaging: Test performed on Sep 06, 2020 09:40 WBC 5.8 10 3/uL RBC 3.40 10 6/uL HGB 10.5 g/dL HCT 34.2 % MCV 100.6 fL MCH 30.9 pg MCHC 30.7 g/dL RDW 18.3 % Platelet Count 286 10 3/cmm MPV 9.0 fL Neutrophils 4.06 10 3/uL Lymphocytes 1.3 10 3/uL Monocytes 0.3 10 3/uL Eosinophils 0.1 10 3/uL Basophils 0.0 10 3/uL Neutrophil % 69.6 % Lymphocyte % 23.0 % Monocyte % 5.3 % Eosinophil % 1.4 % Basophils % 0.5 % NRBC % 0 % Impression: Normocytic normochromic anemia etiology unclear could be multifactorial including nutritional e.g. iron combined with B12 deficiency or functional iron deficiency or considering her age underlying myelodysplasia cannot be ruled out or anemia of chronic disease Osteoarthritis Sleep apnea Diabetes mellitus Congestive heart failure/myocardial infarct. Plan: Discussed with patient regarding her labs white blood count 4.9 hemoglobin 10.9 g hematocrit 34.3 platelets 250,000 CMP within normal limits iron saturation 22.2% ferritin 23, iron 76 TIBC 342 vitamin B12 1018 folate more than 20, reticulocyte count 1.61 Clinically, patient is doing well with no new signs symptoms but persistent generalized weakness and fatigue her follow-up labs shows further improvement in her mild anemia, now hemoglobin is 10.9 g compared to 10.5 g on September 06, 2020 and iron studies on the low side of normal range, with normal B12 and folate level. Patient was tolerating oral iron well but stopped taking about 2 weeks ago. Patient was advised to restart oral iron and then return to clinic in 1 month with CBC and iron studies if hemoglobin continues to improve along with iron stores then will monitor her from hematological point of view. As far as generalized weakness and fatigue is concerned it is less likely due to mild anemia which is improving now but her symptoms are suggestive of other possibilities which could be due to endocrinopathy or medications patient take antihistaminic and also take Lexapro and possible neurological or psychogenic. Patient may benefit from evaluation at tertiary care center regarding her severe generalized weakness and fatigue. Return to clinic in 1 month with CBC and iron studies. Signed By: Nena Becerril M.D. <<Signature on File>>
== END 2020-09-21 05:31 | disposition home or self-care (01) ==
LOC: ONCMED 05:34
PROVIDERS: PCP Internal Medicine; Visit Provider Internal Medicine Hematology & Oncology
DX: D64.9 Anemia, unspecified (principal); R53.1 Weakness; R53.83 Other fatigue; G47.30 Sleep apnea, unspecified; M19.90 Unspecified osteoarthritis, unspecified site; E11.9 Type 2 diabetes mellitus without complications; I50.9 Heart failure, unspecified; I25.2 Old myocardial infarction
CPT/HCPCS: 99214

== ENCOUNTER → 2020-09-27 08:38 | Outpatient (BNVA) | payer MEDICARE, OTHER, SELFPAY | PROVIDERS: PCP Internal Medicine; Visit Provider Nurse Practitioner | DX: F33.2 Major depressive disorder, recurrent severe without psychotic features (principal) | CPT/HCPCS: 99214 ==

== ENCOUNTER → 2020-11-08 10:40 | Outpatient (BNVA) | payer MEDICARE, OTHER, SELFPAY | PROVIDERS: PCP Internal Medicine; Visit Provider Nurse Practitioner | DX: F33.2 Major depressive disorder, recurrent severe without psychotic features (principal) | CPT/HCPCS: 99214 ==

== ENCOUNTER → 2020-11-13 08:00 | Outpatient (BNVA) | payer MEDICARE, OTHER, SELFPAY | PROVIDERS: PCP Internal Medicine; Visit Provider Specialist | DX: M79.642 Pain in left hand (principal); R20.0 Anesthesia of skin; R20.2 Paresthesia of skin; G56.02 Carpal tunnel syndrome, left upper limb | CPT/HCPCS: 95908 ==

== ENCOUNTER 2020-11-13 09:00 | Outpatient (CLI) | payer MEDICARE, OTHER, SELFPAY ==
--- NOTE | 2020-11-13 14:54 | ONC FU_ITS ---
Dr. Becerril follow up note Patient: Makayla Palmer Unit #: [id number]: 1950 Dicatated By: Nena Becerril M.D.Date of Visit:Nov 13, 2020 Onc Med Follow-up/Prog Note History of Present Illness: Ms. Makayla Palmer, is a 70-year-old female with history of anemia in her teen years , as per patient that time she was treated with iron supplements and after that she had no history of anemia even during during pregnancies, as per patient , in 2015 she underwent back to back surgeries for her lumbar fusion and postop period Was complicated by open wound and that time she required blood transfusion. And since then she Was doing reasonably well untill about February 2020 when she started experiencing generalized weakness and fatigue which was progressive, and her lab work-up done on August 15, 2020 showed white blood count was 6.1 hemoglobin 9.3 hematocrit 29.5 and platelets 324,000 with normal differential , MCV was 93, creatinine 0.59 and iron studies showed iron saturation 23%, iron 89, TIBC 380, she was referred to GI for EGD and colonoscopy which was done on August 28, 2020 and both were unremarkable she was started on oral iron and patient was already on multivitamin, and her follow-up labs done on September 03, 2020 showed white blood count 4.6 hemoglobin 7.5 hematocrit 24.3 platelets 311,000 MCV 100 with a normal differential, bilirubin was 0.3 serum creatinine was 0.63, . White blood count 4.6 as per patient she was given 2 units of packed RBCs, she tolerated well but there was no improvement in her generalized weakness and fatigue even after blood transfusion. , As per patient she has noticed some blood in her stool, thought that was due to hemorrhoids and now with darker stools due to oral iron but no fresh blood per rectum. Denies any jaundice, denies any hematuria or vaginal bleeding, denies any night sweats, denies any weight loss, denies any recurrent fever.Denies any shortness of breath at rest but dyspnea on exertion denies any palpitation. No chest pain. Denies any history of gastric bypass. Came for follow-up, denies any specific complaint, except generalized weakness and fatigue, patient has sleep apnea for which she uses CPAP since 2017. Otherwise denies any melena hematochezia denies any hemoptysis hematemesis denies any jaundice denies any shortness of breath or palpitation, tolerating oral iron twice a day well otherwise Medications: Acetaminophen-Codeine 1 - 2 Tablet (of 300-30 mg) Oral q 1 to 2 hours PRN, Alendronate Sodium 1 Tablet (of 70 mg) Oral daily, Atorvastatin Calcium 1 Tablet (of 10 mg) Oral daily, Carvedilol 1 Tablet (of 6.25 mg) Oral daily, Cetirizine HCl 1 Tablet (of 10 mg) Oral daily, clonazePAM Tablet Oral PRN, DocQLace 1 Capsule (of 100 mg) Oral daily, Gabapentin (100 mg) Capsule Oral at bedtime, hydrOXYzine Pamoate 1 Capsule (of 25 mg) Oral daily, Isosorbide Mononitrate ER 1 Tablet (of 30 mg) Tablet SR 24 HR Oral daily, Losartan Potassium 1 Tablet (of 50 mg) Oral daily, Multivitamin 1 Tablet Oral daily, Venlafaxine HCl ER (150 mg) Capsule SR 24 HR Oral daily Allergies: HYDROcodone-Acetaminophen, Iodinated Contrast Media, and Penicillins. Review of Systems: Review of Systems is not available for this patient. Vital Signs: Performed on Nov 13, 2020 10:36 Height - 61.00 in Weight - 205.0 lbs (HIGH) BSA - 1.91 sq.m BMI - 38.73 (HIGH) Temperature - 95.8 F (LOW) Pulse - 78 /min Respiration - 20 /min BP - 140/54 mm(hg) O2 Sat - 98 % Pain - 5 Performance Status: 1 - No physically strenuous activity, but ambulatory and able to carry out light or sedentary work (e.g. office work, light house work). (ECOG) Physical Examination: ENMT - No mouth sores, no thrush, no jaundice, Respiratory - Lungs are clear to auscultation, Cardiovascular - Regular rate and rhythm of heart, Abdomen - Soft, bowel sounds present, Extremities - No visible edema. Lab/Imaging: Test performed on Nov 06, 2020 11:27 Ferritin 54 ng/mL T4, Free 1.04 ng/dL TSH 1.890 uU/mL % Iron Saturation 95 % Glucose 82 mg/dL Vitamin D (25-Hydroxy) 45.2 ng/mL BUN 17 mg/dL Iron, Total 349 mcg/dL Creatinine 0.67 mg/dL TIBC 368 mcg/dL Cr Clearance (Est) 111.64 mL/min Sodium 140 mmol/L Potassium 4.2 mmol/L Chloride 105 mmol/L CO2 22 mmol/L Calcium 9.5 mg/dL Sed Rate 23 mm/hr WBC 4.8 10^9/L RBC 3.57 10^12/L HGB 11.1 g/dL HCT 34.4 % MCV 96 fl MCH 31.1 pg MCHC 32.3 g/dL RDW 13.7 % Platelet Count 267 10^9/L Neutrophils (Gran) 3.0 10^9/L Lymphocytes 1.3 10^9/L Monocytes 0.5 10^9/L Eosinophils 0.1 10^9/L Basophils 0.0 10^9/L Manual Lymphocytes 27 % Manual Monocytes 10 % Manual Eosinophils 2 % Manual Basophils 0 % Test performed on Sep 06, 2020 09:40 MPV 9.0 fL Neutrophil % 69.6 % Lymphocyte % 23.0 % Monocyte % 5.3 % Eosinophil % 1.4 % Basophils % 0.5 % NRBC % 0 % Impression: Normocytic normochromic anemia etiology unclear could be multifactorial including nutritional e.g. iron combined with B12 deficiency or functional iron deficiency or considering her age underlying myelodysplasia cannot be ruled out or anemia of chronic disease Osteoarthritis Sleep apnea Diabetes mellitus Congestive heart failure/myocardial infarct. Plan: Discussed with patient regarding her labs white blood count 4.8 hemoglobin 11.1 hematocrit 30.44 platelets 267,000 iron studies shows iron saturation 95% compared to 22.2% on September 20, 2020, ferritin 54 compared to 23 previously iron 349 compared to 76 previously TSH 1.8 sed rate 23 Clinically, patient is doing well with no new signs symptom but persistent off and on generalized weakness and fatigue, her follow-up CBC shows further improvement in her hemoglobin and iron stores while on oral iron twice a day, will continue same and return to clinic in 2 months with CBC and iron studies As for generalized weakness and fatigue is concerned etiology is unclear could be suboptimal CPAP settings, her thyroid function test is within normal range. Patient was advised to talk to PMD regarding rechecking CPAP machine setting to ensure optimal functioning. Signed By: Nena Becerril M.D. <<Signature on File>>
== END 2020-11-13 09:01 | disposition home or self-care (01) ==
LOC: ONCMED 09:03
PROVIDERS: PCP Internal Medicine; Visit Provider Internal Medicine Hematology & Oncology
DX: D64.9 Anemia, unspecified (principal); R53.1 Weakness; R53.83 Other fatigue; M19.90 Unspecified osteoarthritis, unspecified site; G47.30 Sleep apnea, unspecified; E11.9 Type 2 diabetes mellitus without complications; I50.9 Heart failure, unspecified; I25.2 Old myocardial infarction
CPT/HCPCS: 99214

== ENCOUNTER → 2020-12-20 08:19 | Outpatient (BNVA) | payer MEDICARE, OTHER, SELFPAY | PROVIDERS: PCP Internal Medicine; Visit Provider Nurse Practitioner | DX: F33.2 Major depressive disorder, recurrent severe without psychotic features (principal) | CPT/HCPCS: 99214 ==

== ENCOUNTER → 2021-01-01 10:43 | Outpatient (BNVA) | payer MEDICARE, OTHER, SELFPAY | PROVIDERS: PCP Internal Medicine; Visit Provider Nurse Practitioner Family | DX: I50.32 Chronic diastolic (congestive) heart failure (principal); R06.02 Shortness of breath | CPT/HCPCS: 80048; 83880 ==

== ENCOUNTER 2021-01-10 10:20 | Outpatient (CLI) | payer MEDICARE, OTHER, SELFPAY ==
[2021-01-10 11:24] LABS: Basophils % 0.4 %; Eosinophils # 0.1 10^3/uL (0.0-0.8); Eosinophils % 2.3 %; Hematocrit 29.2 % (37.0-47.0); Hemoglobin 8.8 g/dL (11.5-15.3); Lymphocytes # 1.2 10^3/uL (0.8-4.8); Lymphocytes % 25.1 %; Mean Corpuscular HGB Conc 30.1 g/dL (30.0-36.0); Mean Corpuscular Hemoglobin 30.4 pg (28.0-34.0); Mean Platelet Volume 9.1 fL (7.4-10.4); Monocytes # 0.4 10^3/uL (0.2-0.9); Monocytes % 7.7 %; Neutrophils % 64.1 %; Nucleated Red Blood Cells % 0 %; Platelet Count 286 10^3/cmm (130-400); Red Blood Count 2.89 10^6/uL (4.1-5.3); Red Cell Distribution Width 14.6 % (12.1-15.1); White Blood Count 4.8 10^3/uL (4.0-10.0)
[2021-01-10 11:53] LABS: Ferritin 23 ng/mL (15-150); Iron 361 ug/dL (37-145)
[2021-01-10 12:22] LABS: Unsaturated Iron Binding > 17 ug/dL (112-347)
--- NOTE | 2021-01-21 23:52 | ONC FU_ITS ---
[facility] Patient Note Patient: Makayla Palmer Unit #: [id number]: 1950 Dictated By: Raina AlvarezDate of Visit: Jan 10, 2021 Onc MED Follow-Up/Prog Note Chief Complaint: Anemia History of Present Illness: Ms. Palemr is a 70-year-old female with history of anemia in her teen years. She reports that at that time, she was treated with iron supplements and after that she had no history of anemia even during during pregnancies, She reported that in 2016 she underwent back to back surgeries -for her lumbar fusion. The postop period was complicated by an open wound and at that time she required blood transfusion. She reports that she was doing well untill about February 2020 when she started experiencing generalized weakness and fatigue which was progressive. Her lab work-up done on August 15, 2020 showed white blood count was 6.1 hemoglobin 9.3 hematocrit 29.5 and platelets 324,000 with normal differential , MCV was 93, creatinine 0.59 and iron studies showed iron saturation 23%, iron 89, TIBC 380. She was referred to GI for EGD and colonoscopy which was done on August 28, 2020 and both were unremarkable. Ms Palmer was started on oral iron and she continued her multivitamin. Follow-up labs on September 03, 2020 showed white blood count 4.6, hemoglobin 7.5, hematocrit 24.3, platelets 311,000 MCV 100 with a normal differential, bilirubin was 0.3 serum creatinine was 0.63. She was given 2 units of packed RBCs, which she tolerated well but there was no improvement in her generalized weakness and fatigue even after blood transfusion. She reported she has noticed some blood in her stool, thought that was due to hemorrhoids and now with darker stools due to oral iron but no fresh blood per rectum. Denies any jaundice, denies any hematuria or vaginal bleeding, denies any night sweats, denies any weight loss, denies any recurrent fever.Denies any shortness of breath at rest but dyspnea on exertion denies any palpitation. No chest pain. Denies any history of gastric bypass. She does have sleep apnea for which she uses CPAP since 2017. Otherwise denies any melena hematochezia denies any hemoptysis hematemesis denies any jaundice denies any shortness of breath or palpitation, tolerating oral iron twice a day well otherwise. Ms. Palmer is here today for follow-up. She states overall she still is tired. She denies any fever or chills. She states her appetite is fair. She is still taking iron orally twice a day. She has had some dark-colored stools but they have had no bright red blood or particular odor. She states that they did start being dark-colored when she started taking oral iron. She denies any bruises or bleeding. She denies any recent falls or trauma. She denies any recent Covid testing, exposure or symptoms. She states she does get short winded some but overall does not seem to be significant change. She denies any chest pain or palpitations. She denies any nausea or vomiting. She states her bowels are been normal except for the stool color change. She denies any lower extremity edema. She has had iron deficiency in the past and her iron studies are pending at the time of visit. Her ECOG is 1. Past Medical History: Chronic back pain Congestive heart failure Depression Fibromyalgia Hiatal hernia Myocardial infarction Osteoarthritis Osteopenia Sleep apnea Type II diabetes Past Surgical History: Bilateral wrist surgery Carpal tunnel releasse Colonoscopy Left rotator cuff repair Lumbar fusion x 2 Right shoulder surgery Trigger finger release in 2008 Hysterectomy in 2006 Left knee arthroscopy in 2005 Allergies: HYDROcodone-Acetaminophen, Iodinated Contrast Media, and Penicillins. Medications: Alendronate Sodium 1 Tablet (of 70 mg) Oral daily Ambien 1 Tablet (of 5 mg) Oral at bedtime PRN amLODIPine Besylate 1 Tablet (of 5 mg) Oral daily Atorvastatin Calcium 1 Tablet (of 10 mg) Oral daily Carvedilol 1 Tablet (of 6.25 mg) Oral daily CeleBREX 1 Capsule (of 100 mg) Oral daily Cetirizine HCl 1 Tablet (of 10 mg) Oral daily clonazePAM Tablet Oral PRN DocQLace 1 Capsule (of 100 mg) Oral daily Furosemide 1 Tablet (of 20 mg) Oral daily Gabapentin (100 mg) Capsule Oral at bedtime hydrOXYzine Pamoate 1 Capsule (of 25 mg) Oral daily Isosorbide Mononitrate ER 1 Tablet (of 30 mg) Tablet SR 24 HR Oral daily Losartan Potassium 1 Tablet (of 50 mg) Oral daily Multivitamin 1 Tablet Oral daily Spironolactone 1 Tablet (of 100 mg) Oral daily Venlafaxine HCl ER (150 mg) Capsule SR 24 HR Oral daily Family History: Ms. Palmer's mother at age 89: breast cancer, and kidney cancer. Ms. Palmer's father at age 70: liver cancer. Ms. Palmer has 3 brothers: 2 alive, 1 . Ms. Palmer's first brother's breast cancer. Another brother's prostate cancer. Another brother's prostate cancer. 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 Ms. Palmer has never smoked. She has no history of drinking. Ms. Palmer reports the following support systems: lives with spouse, significant other, family, or friends, lives in own house, and adequate transportation available for expected visits. Review Of Symptoms: Vital Signs: Performed on Jan 10, 2021 11:47 Height - 61.00 in Weight - 208.2 lbs (HIGH) BSA - 1.92 sq.m BMI - 39.34 (HIGH) Temperature - 98.2 F (LOW) Pulse - 71 /min Respiration - 17 /min BP - 107/72 mm(hg) O2 Sat - 96 % Pain - 6,1 - No physically strenuous activity, but ambulatory and able to carry out light or sedentary work (e.g. office work, light house work). (ECOG) Physical Examination: Constitutional Alert, oriented, no acute distress. Skin pink, warm and dry. Head Normocephalic; atraumatic. Eyes Conjunctivae and sclerae are clear and without icterus. Pupils are reactive and equal. Neck Supple without masses or thyromegaly. No jugular venous distension. Hematologic/Lymphatic No petechiae or purpura. No tender or palpable lymph nodes in the cervical or supraclavicular areas. Respiratory Lungs are clear to auscultation without rhonchi or wheezing. Cardiovascular Regular rate and rhythm of heart without murmurs,clicks, gallops or rubs. Abdomen Non-tender, non-distended, no masses or ascites. Good bowel sounds noted in all quads. No guarding or rebound tenderness. No pulsatile masses. Back/Spine Non-tender to palpation. Extremities No visible deformities, no cyanosis, clubbing or edema. Musculoskeletal No tenderness or swelling, normal range of motion without obvious weakness. Integumentary No rashes or lesions. Neurologic No sensory or motor deficits, normal cerebellar function, normal gait. Psychiatric Alert and oriented times three. Coherent speech. Verbalizes understanding of our discussions today. Laboratory:Test performed on Jan 10, 2021 11:05 Ferritin 23 ng/mL Iron 361 mcg/dL Iron Binding Capacity (TIBC) 378.52903 mcg/dl % Iron Saturation 95.0 % UIBC > 17 mcg/dL WBC 4.8 10 3/uL RBC 2.89 10 6/uL HGB 8.8 g/dL HCT 29.2 % MCV 101.0 fL MCH 30.4 pg MCHC 30.1 g/dL RDW 14.6 % Platelet Count 286 10 3/cmm MPV 9.1 fL Neutrophils 3.10 10 3/uL Lymphocytes 1.2 10 3/uL Monocytes 0.4 10 3/uL Eosinophils 0.1 10 3/uL Basophils 0.0 10 3/uL Neutrophil % 64.1 % Lymphocyte % 25.1 % Monocyte % 7.7 % Eosinophil % 2.3 % Basophils % 0.4 % NRBC % 0 % Test performed on Nov 06, 2020 11:27 T4, Free 1.04 ng/dL TSH 1.890 uU/mL Glucose 82 mg/dL Vitamin D (25-Hydroxy) 45.2 ng/mL BUN 17 mg/dL Creatinine 0.67 mg/dL Cr Clearance (Est) 111.64 mL/min Sodium 140 mmol/L Potassium 4.2 mmol/L Chloride 105 mmol/L CO2 22 mmol/L Calcium 9.5 mg/dL Sed Rate 23 mm/hr Manual Lymphocytes 27 % Manual Monocytes 10 % Manual Eosinophils 2 % Manual Basophils 0 % Impression: Normocytic normochromic anemia etiology unclear could be multifactorial including nutritional e.g. iron combined with B12 deficiency or functional iron deficiency or considering her age underlying myelodysplasia cannot be ruled out or anemia of chronic disease Osteoarthritis Sleep apnea Diabetes mellitus Congestive heart failure/myocardial infarct. Plan: PROBLEMS ADDRESSED TODAY 1. Normocytic, normochromic anemia???her iron saturation in September 2020 was 22.2% and a ferritin level was 23. Her thyroid work-up was normal in October 2020 and her vitamin D level was 45. A. She continues on oral iron twice daily. B. Today's labs reviewed in detail discussed with Mrs. Palmer and a copy was given to her. WBC 4.8, hemoglobin 8.8, platelets 286,000 ANC is 3100. Her iron saturation is 95% ferritin is 23 iron level is 361. C. Mrs. Palmer had a chest x-ray on 01/10/[address] Aleah Jarvis. It reported no acute cardiopulmonary findings and large fixed hiatal hernia. It was noted that she had an anchoring screw noted in the left humeral head. Spinal hardware partially visualized in the lower thoracic and upper lumbar spine. Mrs. Palmer then had a CT of the chest on 01/15/[address] Maryuri Jarvis. There were no suspicious pulmonary parenchymal opacities. Large esophageal hiatal hernia with partial intrathoracic stomach unchanged. Mild chronic emphysematous changes. No acute pulmonary infiltrates. No focal pneumonia or pleural fluid. Cholelithiasis. D. I spoke with Dr. Wahl think regarding Mrs. Palmer's labs. I am concerned because her hemoglobin is 8.8. I really felt that she was iron deficient as her MCV was 101. However her iron saturations are as above???reported at 95% with a ferritin of 54 and iron at 349. There is concern regarding her black stools which is hard to determine if this is an abnormality or related to the iron supplementation. Dr. Jarvis indicated that she would be sending Mrs. Palmer for a camera/capsule evaluation of her colon. This will be done in [place]. I did inform Dr. Jarvis that Dr. Becerril is out of town and has not reviewed the labs but once he is back we will have him review the labs and give us a further plan of care. E. Mrs. Palmer is aware that we will talk with Dr. Becerril regarding further plan of care and call her with follow-up plans. During her visit felt that she would be iron deficient and we did talk about dosing with Injectafer. We will discuss this further with Dr. Becerril upon his return. F. Mrs. Palmer was encouraged to let us know in interim if questions or problems arise. I did encouraged her recheck CBC with type and screen in the next 1 to 2 weeks to make sure that she is not continue to drop her hemoglobin. She states that she will be doing labs with Dr. Jarvis's office as well. ADDENDUM 01/18/[address] Becerril in regards to Mrs. Palmer is lab results and visit from 01/10/2021. He recommended a trial of 1 dose of Injectafer 750 mg as he feels that this could be a functional iron deficiency anemia. He stated if there was no improvement with 1 dose of the Injectafer his next recommendation would be bone marrow aspiration and biopsy for further assessment of her anemia. We will call Mrs. Palmer with these recommendations and also inform Dr. Jarvis's office of Dr. Becerril's current plan of care. Signed By: Raina Alvarez-, AOCNP Nena Becerril MD <<Signature on File>>
== END 2021-01-10 10:21 | disposition home or self-care (01) ==
LOC: ONCMED 10:23
PROVIDERS: PCP Internal Medicine; Visit Provider Nurse Practitioner
DX: D64.9 Anemia, unspecified (principal); M19.90 Unspecified osteoarthritis, unspecified site; G47.30 Sleep apnea, unspecified; E11.9 Type 2 diabetes mellitus without complications; I50.9 Heart failure, unspecified; I25.2 Old myocardial infarction; K44.9 Diaphragmatic hernia without obstruction or gangrene; R19.5 Other fecal abnormalities
CPT/HCPCS: 36415; 82728; 83540; 83550; 85025; 99214

== ENCOUNTER 2021-01-10 15:18 | Outpatient (CLI) | payer MEDICARE, OTHER, SELFPAY ==
--- NOTE | 2021-01-10 15:22 | XR_ITS ---
WS: [id number] Exam: XR chest 2V* [id number] Date/Time of Exam: 01/10/2021 3:45 PM Reason For Exam: COUGH/SHORTNESS OF BREATH Comparison 02/09/2020. The lungs are clear and fully expanded. Normal-appearing cardiomediastinal structures. Large hiatal h ernia. No pleural effusions. Anchoring screw noted in the left humeral head. Spinal hardware partiall y visualized in the lower thoracic and upper lumbar spine. XR/XR chest 2V* [id number] IMPRESSION: 1. No acute cardiopulmonary finding. 2. Large fixed hiatal hernia.
== END 2021-01-10 15:19 | disposition home or self-care (01) ==
PROVIDERS: PCP Internal Medicine; Visit Provider Internal Medicine
DX: R05 Cough (principal); R06.02 Shortness of breath; K44.9 Diaphragmatic hernia without obstruction or gangrene
CPT/HCPCS: 71046

== ENCOUNTER 2021-01-15 11:11 | Outpatient (CLI) | payer MEDICARE, OTHER, SELFPAY ==
--- NOTE | 2021-01-15 11:19 | CT_ITS ---
WS: [id number] CT CHEST TECHNIQUE: Noncontrast CT of the chest with coronal and sagittal reformatted images. CLINICAL INFORMATION: SHORTNESS OF BREATH COMPARISON: March 28, 2020 DLP: 980.[address] scans at [facility] use at least one of these dose optimization techniques: automat ed exposure control; mA and/or kV adjustment per patient size (includes targeted exams where dose is matched to clinical indication); or iterative reconstruction. FINDINGS: Mild chronic emphysematous changes. No acute pulmonary infiltrates. No focal consolidation or pleural fluid. Subsegmental atelectasis in the lingula and both lower lobes medially. Large esophageal hiata l hernia with partial intrathoracic stomach. No other suspicious pulmonary parenchymal opacities. No focal pneumonia or pleural fluid. No mediastinal or hilar lymphadenopathy. Stable calcified right thy roid nodule. No axillary lymphadenopathy. Cholelithiasis. Adrenal glands are normal. Partially visualized postoperative changes in the lower th oracic and upper lumbar spine. CT/CT chest wo con [id number] IMPRESSION: 1. No suspicious pulmonary parenchymal opacities. 2. Large esophageal hiatal hernia with partial intrathoracic stomach is unchan ged. 3. Mild chronic emphysematous changes. No acute pulmonary infiltrates. No foca l pneumonia or pleural fluid. 4. Cholelithiasis. 5. No other significant interval changes.
== END 2021-01-15 11:12 | disposition home or self-care (01) ==
LOC: RADWPI 11:12
PROVIDERS: PCP Internal Medicine; Visit Provider Internal Medicine
DX: R06.02 Shortness of breath (principal); K80.20 Calculus of gallbladder without cholecystitis without obstruction; K44.9 Diaphragmatic hernia without obstruction or gangrene
CPT/HCPCS: 71250

== ENCOUNTER → 2021-01-31 08:38 | Outpatient (BNVA) | payer MEDICARE, OTHER, SELFPAY | PROVIDERS: PCP Internal Medicine; Visit Provider Nurse Practitioner | DX: F33.2 Major depressive disorder, recurrent severe without psychotic features (principal) | CPT/HCPCS: 99214 ==

== ENCOUNTER 2021-02-05 10:42 | Outpatient (CLI) | payer MEDICARE, OTHER, SELFPAY ==
--- NOTE | 2021-02-05 10:48 | MM_ITS ---
WS: [id number] BILATERAL DIGITAL SCREENING MAMMOGRAPHY WITH CAD CLINICAL INFORMATION: SCREENING HISTORY: Screening mammogram. No current complaints. COMPARISON: November 09, 2019 TECHNIQUE: Bilateral CC and MLO views. FINDINGS: Scattered fibroglandular densities bilaterally. 5 mm asymmetric density subareolar left breast previo usly evaluated in 2018 and appears unchanged. No suspicious focal mass, asymmetry, calcifications, or architectural distortion. No evidence of malignancy. Incidental punctate calcifications. Vascular ca lcification. MM/[id number] IMPRESSION: BI-RADS: 2-Benign FOLLOW UP: 1 Year Follow-up Recommend return to annual screening mammography.
== END 2021-02-05 10:43 | disposition home or self-care (01) ==
PROVIDERS: PCP Internal Medicine; Visit Provider Internal Medicine
DX: Z12.31 Encounter for screening mammogram for malignant neoplasm of breast (principal)
CPT/HCPCS: 77067

== ENCOUNTER 2021-02-11 06:53 | Outpatient (CLI) | payer MEDICARE, OTHER, SELFPAY ==
--- NOTE | 2021-02-11 | USCV_ITS ---
Makayla Palmer Age: 70 Gender: F : 1950 Exam Date: 02/11/2021 07:08 Ordering Phys: Quynh Vallejo Technologist: Annetta Cruz Exam Location: [facility] [place] Indication: CHEST PAIN BP: 130 / 75 HR: 77 Rhythm: Sinus Technical Quality: Adequate MEASUREMENTS (Male / Female) Normal Values 2D ECHO LV Diastolic Diameter PLAX 3.7 cm 4.2 - 5.9 / 3.9 - 5.3 cm LV Systolic Diameter PLAX 3.1 cm LV Chamber Size 3.8 cm IVS Diastolic Thickness 0.7 cm 0.6 - 1.0 / 0.6 - 0.9 cm IVS Systolic Thickness 1.3 cm LVPW Diastolic Thickness 1.3 cm 0.6 - 1.0 / 0.6 - 0.9 cm LVPW Systolic Thickness 1.7 cm RV Chamber Size 3.0 cm LVOT Diameter 2.0 cm LV Ejection Fraction 2D Teich 32.6 % LV Ejection Fraction MOD 2C 59.3 % LV Ejection Fraction 2C AL 59.0 % LA Diameter 2.9 cm LA Width 3.0 cm LA Height 3.1 cm RA Width 3.2 cm RA Height 4.7 cm Aorta at Sinotubular Diameter 3.1 cm M-MODE LV Diastolic Diameter MM 3.8 cm 4.2 - 5.9 / 3.9 - 5.3 cm LV Systolic Diameter MM 2.3 cm LV Ejection Fraction MM Teich 71.1 % IVS Diastolic Thickness MM 1.3 cm 0.6 - 1.0 / 0.6 - 0.9 cm IVS Systolic Thickness MM 1.4 cm LVPW Diastolic Thickness MM 1.0 cm 0.6 - 1.0 / 0.6 - 0.9 cm LVPW Systolic Thickness MM 1.3 cm Aortic Annulus Diameter 3.1 cm LA Ao Ratio MM 1.0 MV E Point Septal Separation 2.0 cm DOPPLER AV Peak Velocity 197.0 cm/s LVOT Peak Velocity 135.0 cm/s AV Area Cont Eq vti 2.3 cm squared AV Area Cont Eq pk 2.2 cm squared MV Area PHT 4.3 cm squared Mitral E to A Ratio 0.9 MV E' Velocity 59.5 cm/s Mitral E to MV E' Ratio 8.7 Mitral E to LV E' Lateral Ratio 10.1 Mitral E to LV E' Septal Ratio 7.7 TR Peak Velocity 279.1 cm/s TR Peak Gradient 31.2 mmHg TR Mean Velocity 226.8 cm/s TR Mean Gradient 21.7 mmHg TR Velocity Time Integral 85.6 cm TV Peak E Velocity 108.0 cm/s Right Atrial Pressure 3.0 mmHg Pulmonary Artery Systolic Pressu 34.2 mmHg PV Peak Velocity 84.0 cm/s RV Acceleration Time 0.2 s RV Ejection Time 0.3 s RV AcT/ET 0.5 FINDINGS Left Ventricle Normal left ventricular size, systolic function and wall thickness, with no regional wall motion abnormalities. Left ventricular ejection fraction is estimated at 70%. Normal diastolic function. Right Ventricle Normal right ventricular size and systolic function, RVSP 37 mmHg. Right Atrium Normal right atrial size. Left Atrium Mildly increased left atrial size. Mitral Valve Mild mitral annular calcification. Mildly thickened mitral valve. No mitral valve stenosis. Trace mitral valve regurgitation. Aortic Valve Mildly thickened trileaflet aortic valve. No aortic valve stenosis. No aortic valve regurgitation. Tricuspid Valve Structurally normal tricuspid valve. No tricuspid valve stenosis. Mild to moderate tricuspid valve regurgitation. Pulmonic Valve Structurally normal pulmonic valve. No pulmonary valve stenosis. Trace pulmonary valve regurgitation. Pericardium No pericardial effusion. Aorta Normal size aortic root and proximal ascending aorta. CONCLUSIONS 1. Normal left ventricular size, systolic function and wall thickness, with no regional wall motion abnormalities. Left ventricular ejection fraction is estimated at 70%. Normal diastolic function. 2. Normal right ventricular size and systolic function. 3. Pulmonary artery pressure estimated at 37 mmHg. 4. Mild to moderate tricuspid valve regurgitation. 5. No significant change when compared to echocardiogram dated 03/05/2020. Hetal Mason MD (Electronically Signed) Final Date: 13 February 2021 12:04 S
== END 2021-02-11 06:54 | disposition home or self-care (01) ==
LOC: RAD 06:53
PROVIDERS: PCP Internal Medicine; Visit Provider Nurse Practitioner Family
DX: I50.32 Chronic diastolic (congestive) heart failure (principal); R07.9 Chest pain, unspecified; I07.1 Rheumatic tricuspid insufficiency
CPT/HCPCS: 93306

== ENCOUNTER 2021-02-22 14:40 | Outpatient (CLI) | payer MEDICARE, OTHER, SELFPAY ==
--- NOTE | 2021-02-22 15:03 | ECG_ITS ---
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 Measurements Intervals [place] Rate: 89 P: 30 PA: 128 QRS: 6 QRSD: 91 T: 10 QT: 359 QTc: 438 Interpretive Statements SINUS RHYTHM Compared to ECG 10/06/2019 14:14:38 No significant changes Electronically Signed On 02-24-2021 12:23:56 CDT by Hetal Mason M.D. [id number]
[2021-02-22 16:28] LABS: Anion Gap 15.6 (5-19); Blood Urea Nitrogen 21 mg/dL (8-23); Calcium 8.9 mg/dL (8.5-10.5); Carbon Dioxide 22 mmol/L (22-29); Chloride 102 mmol/L (98-107); Glomerular Filtration Rate 99.4 mL/min (90-130); Glucose 154 mg/dL (65-115); Osmolality Calculated 288 mOsm/kg (285-295); Potassium 3.6 mmol/L (3.5-5.1); Sodium 136 mmol/L (136-145)
[2021-02-22 16:39] LABS: Basophils % 0.6 %; Eosinophils # 0.1 10^3/uL (0.0-0.8); Eosinophils % 1.5 %; Hematocrit 37.4 % (37.0-47.0); Hemoglobin 11.5 g/dL (11.5-15.3); Lymphocytes # 1.8 10^3/uL (0.8-4.8); Lymphocytes % 27.5 %; Mean Corpuscular HGB Conc 30.7 g/dL (30.0-36.0); Mean Corpuscular Hemoglobin 29.9 pg (28.0-34.0); Mean Corpuscular Volume 97.4 fL (81-99); Mean Platelet Volume 9.2 fL (7.4-10.4); Monocytes # 0.7 10^3/uL (0.2-0.9); Neutrophils # 3.96 10^3/uL (1.8-7.7); Neutrophils % 60.1 %; Nucleated Red Blood Cells % 0 %; Platelet Count 260 10^3/cmm (130-400); Red Blood Count 3.84 10^6/uL (4.1-5.3); Red Cell Distribution Width 13.5 % (12.1-15.1); White Blood Count 6.6 10^3/uL (4.0-10.0)
== END 2021-02-22 14:41 | disposition home or self-care (01) ==
PROVIDERS: PCP Internal Medicine; Visit Provider Specialist
DX: J32.0 Chronic maxillary sinusitis (principal); J32.2 Chronic ethmoidal sinusitis
CPT/HCPCS: 36415; 80048; 85025; 93005

== ENCOUNTER → 2021-03-28 08:41 | Outpatient (BNVA) | payer MEDICARE, OTHER, SELFPAY | PROVIDERS: PCP Internal Medicine; Visit Provider Nurse Practitioner | DX: F33.2 Major depressive disorder, recurrent severe without psychotic features (principal) | CPT/HCPCS: 99214 ==

== ENCOUNTER → 2021-04-11 16:01 | Outpatient (BNVA) | payer MEDICARE, OTHER, SELFPAY | PROVIDERS: PCP Internal Medicine; Visit Provider Nurse Practitioner Family | DX: R00.2 Palpitations (principal) | CPT/HCPCS: 84443 ==

== ENCOUNTER → 2021-04-26 07:35 | Outpatient (BNVA) | payer MEDICARE, OTHER, SELFPAY | PROVIDERS: PCP Internal Medicine; Visit Provider Nurse Practitioner | DX: F33.2 Major depressive disorder, recurrent severe without psychotic features (principal) | CPT/HCPCS: 99214 ==

== ENCOUNTER → 2021-05-27 07:20 | Outpatient (BNVA) | payer MEDICARE, OTHER, SELFPAY | PROVIDERS: PCP Internal Medicine; Visit Provider Nurse Practitioner | DX: F33.2 Major depressive disorder, recurrent severe without psychotic features (principal) | CPT/HCPCS: 99214 ==

== ENCOUNTER 2021-06-11 06:00 | Outpatient (RCR) | payer MEDICARE, OTHER, SELFPAY | END 2021-06-18 23:59 | disposition home or self-care (01) | LOC: SPT 06:00 | PROVIDERS: PCP Internal Medicine; Referring Provider Internal Medicine; Visit Provider Internal Medicine | DX: M54.89 Other dorsalgia (principal) | CPT/HCPCS: 97110; 97161; 97530 ==

== ENCOUNTER 2021-06-19 06:00 | Outpatient (RCR) | payer MEDICARE, OTHER, SELFPAY | END 2021-07-18 23:59 | disposition home or self-care (01) | LOC: SPT 06:00 | PROVIDERS: PCP Internal Medicine; Referring Provider Internal Medicine; Visit Provider Internal Medicine | DX: M54.9 Dorsalgia, unspecified (principal) | CPT/HCPCS: 97110; 97530 ==

== ENCOUNTER → 2021-06-25 07:20 | Outpatient (BNVA) | payer MEDICARE, OTHER, SELFPAY | PROVIDERS: PCP Internal Medicine; Visit Provider Nurse Practitioner | DX: F33.2 Major depressive disorder, recurrent severe without psychotic features (principal) | CPT/HCPCS: 99214 ==

== ENCOUNTER → 2021-07-04 08:55 | Outpatient (BNVA) | payer MEDICARE, OTHER, SELFPAY | PROVIDERS: PCP Internal Medicine; Visit Provider Nurse Practitioner | DX: F33.2 Major depressive disorder, recurrent severe without psychotic features (principal) | CPT/HCPCS: 99214 ==

== ENCOUNTER → 2021-07-05 07:13 | Day surgery (SDC) | payer MEDICARE, OTHER, SELFPAY ==
[2021-07-05] VITALS (9 sets, daily range): BP systolic 99–129; BP diastolic 53–84; PULSE 73–89; RESP 18; TEMP 37.1–37.4; O2SAT 95–98
[2021-07-05] MEDS: diphenhydrAMINE 25 mg Capsule PO (07:26)
[2021-07-05] MEDS: sodium chloride 0.9% (100 ml) 100 ML 10 ML ×2 (07:28→10:30)
== END ==
PROVIDERS: PCP Internal Medicine; Visit Provider Internal Medicine
DX: D64.9 Anemia, unspecified (principal); K92.1 Melena
CPT/HCPCS: 36415; 36430; 86850; 86900; 86920; P9016

== ENCOUNTER 2021-07-19 06:00 | Outpatient (RCR) | payer MEDICARE, OTHER, SELFPAY | END 2021-08-18 23:59 | disposition home or self-care (01) | LOC: SPT 06:00 | PROVIDERS: PCP Internal Medicine; Referring Provider Internal Medicine; Visit Provider Internal Medicine | DX: M54.9 Dorsalgia, unspecified (principal) | CPT/HCPCS: 97110; 97530 ==

== ENCOUNTER → 2021-07-22 13:51 | Outpatient (BNVA) | payer MEDICARE, OTHER, SELFPAY | PROVIDERS: PCP Internal Medicine; Visit Provider Nurse Practitioner Family | DX: R39.11 Hesitancy of micturition (principal) | CPT/HCPCS: 81003 ==

== ENCOUNTER → 2021-08-01 09:59 | Outpatient (BNVA) | payer MEDICARE, OTHER, SELFPAY | PROVIDERS: PCP Internal Medicine; Visit Provider Nurse Practitioner | DX: F33.2 Major depressive disorder, recurrent severe without psychotic features (principal); R06.02 Shortness of breath; I50.32 Chronic diastolic (congestive) heart failure; Z20.822 Contact with and (suspected) exposure to COVID-19 | CPT/HCPCS: 80048; 85025; 85610; 87635; 99214 ==

== ENCOUNTER 2021-08-07 07:22 | Outpatient (CLI) | payer MEDICARE, OTHER, SELFPAY ==
--- NOTE | 2021-08-07 06:00 | XACV_ITS ---
Exam Room: 2 Ht: 155 cm Wt: 93 kg BSA: 2.04 m2 Gender: Female : 1950 Any Known Allergies: Hydrocodone Exam Priority: Routine Procedure(s): Procedure Description: Diagnostic procedure Procedure Description: Right Heart Catheterization Diagnostic Cath Status: Elective Conclusions 1. Pulmonary capillary wedge pressure 21 mmHgPA mean 31 mmHgRV 43/11 mmHgRA 17 mmHgNo significant step-up noted at the level of PAHigh cardiac output 6L and cardiac index 3.0 notedMild post capillary pulmonary hypertension noted. Recommendations * Usual post cath care. Diagnostic RX Recommendation: medical therapy and/or counseling Pressures Phase:Rest RV : 43 / 11 / 18 @ 9:08:00 AM PA : 41 / 22 ( 31 ) @ 9:02:00 AM RA : a wave = 21 v wave = 20 mean = 17 @ 9:12:00 AM PCW : a wave = 24 v wave = 22 mean = 21 @ 9:04:00 AM O2 Content Phase:Rest PA : O2 Content O2: 68.9 @ 9:08:00 AM Saturations Phase:Rest AO : 92 @ 9:02:00 AM RA : 71 @ 9:04:00 AM RV : 70 @ 9:12:00 AM PA : 69 @ 9:08:00 AM Cardiac Output Phase:Rest Mello : 6 @ 10:32:11 AM Mello Cardiac Index: 3 @ 10:32:11 AM Flow Phase:Rest Qp : 6 @ 10:32:11 AM Qs : 7 @ 10:32:11 AM Clinical Evaluation EBL: 5mL-10mL Procedural Details Procedure Consent Obtained. Identified patient by full name and date of as verbalized by the patient/guarantor. Identified patient by full name and date of as verbalized by the patient/guarantor. Does the consent match the physician's order: Yes. Accurate & Complete Informed Consent: Yes. Inpatient/Outpatient History & Physical on Chart: Yes. If H&P is completed, is and addenduem needed: No; If yes, is the addendum complete: N/A. Visualize and Verify Site with Patient/Guarantor: N/A. Relevant Radiology Images available: N/A. Pre-op teaching completed and patient verbalized understanding. The risks, benefits, and alternatives of sedation and/or procedure were discussed by physician. The patient agrees to continue. Procedure started. [facility] Clinical Fraility Score: 3: Managing Well. Chest Pain Symptom Assessment: Asymptomatic. 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 Correct patient, site and procedure confirmed by cath team. PERRLA. Strong, equal hand swimming pool maintenance bilaterally. Lungs clear x 5 lobes. IV Site on Arrival: 20 gauge in the left anticubital. IV Fluids: 0.9% NaCl at KVO. 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 Pre Procedural Pulses: bilateral radial was 2+. right brachial was prepped with chloroprep then draped in the usual sterile fashion. Baseline sample Acquired. HR: 77 BPM. Physician arrived. Physician scrubbed in. Immediate Pre-Procedure Time Out. Correct Patient: Yes; Correct Procedure: Yes; Correct Site: Yes; Correct Patient Position: Yes; Correct Supplies: Yes; Dried Flammable Prep: Yes; Blood Products Available: n/a. Lidocaine 1% infiltrated to the right brachial. [place]-Dee MON catheter inserted. Pressure measurements obtained. Oximetry samples were obtained. Normal venous range: 60-85%. Normal arterial range: 95-100%. Catheter out. Physician scrubbed out. Brachial sheath removed, manual pressure held and pressure dressing applied. Post Procedure: Pulses reassessed and unchanged. PERRLA. Strong, equal hand swimming pool maintenance bilaterally. No VTE prophylaxis required. Medication's Wasted: Lidocaine 1% = 12 mL. Total IV fluids: 50 mL. Estimated blood loss: 5mL-10mL. Procedure completed. Patient transferred by wheelchair to CPRU. Vital chart was stopped. Access Site Site: Right Brachial Vein Sheath Size: 6 Fr Hemostasis Success: Unsuccessful Procedure Medications Start: 9:41 AM Stop: 9:41 AM Medication: Fentanyl Amount: 50 mcg Route: I.V. Start: 9:41 AM Stop: 9:41 AM Medication: Versed Amount: 1 mg Route: I.V. Start: 9:45 AM Stop: 9:45 AM Medication: Versed Amount: 1 mg Route: I.V. Start: 9:45 AM Stop: 9:45 AM Medication: Fentanyl Amount: 50 mcg Route: I.V. I, the attending physician, have reviewed and verified all procedure medications. Yes, all medications given per verbal order History/Risk Factors Hypertension: No Dyslipidemia: No Peripheral Arterial Disease (PAD): No Myocardial Infarction (MD): Yes Obesity: Yes Renal Disease: No Prior Interventions PCI: No CABG: No Valve Surgery: No Report Signatures Finalized by Rebecca Arredondo MD on 08/18/2021 11:56 PM
[2021-08-07 08:16] VITALS: BP 137/93; PULSE 75; RESP 16; TEMP 36.4; O2SAT 96; BMI 38.5
--- NOTE | 2021-08-07 09:37 | W.PM.OPSUD ---
Surgery/Procedure H&P Update DATE OF PROCEDURE: August 07, 2021 DATE H&P PERFORMED: 07/10/21 H&P UPDATE INFORMATION: I have reviewed H&P completed within last 30 days, I have examined patient prior to procedure and Changes to prior documentation as noted here PREOP DIAGNOSIS: worsening of shortness of breath, pulmonary hypertension PLANNED PROCEDURE: Operation Date: 08/07/21 07:00 Proposed Procedures p Cardiac Catheterization(Right) - Rebecca Arredondo MD PATIENT REASSESSED PRIOR TO SEDATION, WITH NO CHANGE NOTED: Yes PHYSICAL EXAM: alert, oriented x 3 and clear to auscultation bilaterally AIRWAY EVAL/ANESTHESIA PLAN: ASA II, Risks, benefits & alternatives of sedation and/or procedure discussed and Patient agrees to continue as planned
[2021-08-07 10:30] VITALS: BP 149/76; PULSE 81; RESP 18; O2SAT 100
--- NOTE | 2021-08-07 10:39 | PC.NURSE ---
recovery received pt from laboratory animal care veterinarian post rhc. pt alert and oriented. complains of no pain but tightness of the dressing on the right arm. dressing on right ac. distal pulses palpable. pt placed on vitals machine and will monitor per protocol til discharge.
[2021-08-07 10:45] VITALS: PULSE 88; RESP 24; O2SAT 94
[2021-08-07 11:00] VITALS: BP 150/93; PULSE 85; RESP 25; O2SAT 97
[2021-08-07 11:15] VITALS: BP 159/93; PULSE 68; RESP 18; O2SAT 98
== END 2021-08-07 11:56 | disposition home or self-care (01) ==
PROVIDERS: PCP Internal Medicine; Visit Provider Internal Medicine Cardiovascular Disease
DX: R06.02 Shortness of breath (principal); I27.20 Pulmonary hypertension, unspecified; D50.9 Iron deficiency anemia, unspecified; I50.32 Chronic diastolic (congestive) heart failure; G47.33 Obstructive sleep apnea (adult) (pediatric)
CPT/HCPCS: 36415; 93451; C1751; C1769; C1894; J1644; J2250; J3010; J7030

== ENCOUNTER → 2021-08-08 13:27 | Outpatient (BNVA) | payer MEDICARE, OTHER, SELFPAY | PROVIDERS: PCP Internal Medicine; Referring Provider Anesthesiology Pain Medicine; Visit Provider Orthopaedic Surgery | DX: M54.9 Dorsalgia, unspecified (principal) | CPT/HCPCS: 72100 ==

== ENCOUNTER 2021-08-19 06:00 | Outpatient (RCR) | payer MEDICARE, OTHER, SELFPAY | END 2021-09-17 23:59 | disposition home or self-care (01) | LOC: SPT 06:00 | PROVIDERS: PCP Internal Medicine; Visit Provider Internal Medicine | DX: G89.29 Other chronic pain (principal); M54.9 Dorsalgia, unspecified | CPT/HCPCS: 97530 ==

== ENCOUNTER 2021-08-19 06:00 | Outpatient (CLI) | payer MEDICARE, OTHER, SELFPAY ==
[2021-09-05 18:00] VITALS: BP 139/94; PULSE 90; RESP 18; TEMP 37; O2SAT 97
[2021-09-07] VITALS (15 sets, daily range): BP systolic 100–160; BP diastolic 69–99; PULSE 90; RESP 14–20; TEMP 36.9–37.6; O2SAT 95–99
--- NOTE | 2021-09-07 08:21 | PC.SOCIAL ---
Patient length of stay says 19 days, spoke to CSU US who states that patient is admitted under reacquiring because she comes in and gets blood transfusions frequently. CM not triggered to see patient.
[2021-09-07] MEDS: acetaminophen 500 mg Tablet PO (10:22)
[2021-09-07] MEDS: diphenhydrAMINE 25 mg Capsule PO (10:23)
[2021-09-07] MEDS: sodium chloride 0.9% 250 ML 30 ML IV (11:15)
[2021-09-07] MEDS: FUROsemide 10 mg/mL SDV 2mL 20 MG IVP (14:22)
--- NOTE | 2021-09-07 16:22 | PC.NURSE ---
pt admitted into room 107 as out-pt for blood transfusion.oriented to room environment.will type pt typed and and crossmatched..
--- NOTE | 2021-09-07 16:25 | PC.NURSE ---
prbc infusion began at 1110.at approx 1140,pt c/o pain at iv site.no blood return noted.iv discontinued.pt is an extremely difficult stick..so called photocopier technician to insert using ultrasound.#20 inserted into right upper forearm.prbc transfusion resumed.no s/sxs transfusion reaction noted.
--- NOTE | 2021-09-07 18:23 | PC.NURSE ---
2nd unit prbc infused at 1800.vss.pt began c/o of chest pain.substernal,radiating to back and down to mid-back.sob when transferred to [facility].rates pain8/10.very anxious and concerned about getting home to her . pt received 20 mg of lasix bt units as ordered.pt urinated several times during outpt stay.lung tom are cta..and o2 sat high 90's on room air.ekg obtained.no st elevation noted.dr sher notified.she ordered pt to go to emergency room.taken to er via w/c. at 1820
== END 2021-09-07 18:00 | disposition home or self-care (01) ==
LOC: CSU 09-07 18:28 → OPCSU 09-23 08:21
PROVIDERS: PCP Internal Medicine; Referring Provider Internal Medicine; Visit Provider Internal Medicine
DX: M54.9 Dorsalgia, unspecified (principal); K92.1 Melena; I50.30 Unspecified diastolic (congestive) heart failure
CPT/HCPCS: 36430; 81003; 97530; J1940; J7050

== ENCOUNTER → 2021-08-19 12:46 | Outpatient (BNVA) | payer MEDICARE, OTHER, SELFPAY | PROVIDERS: PCP Internal Medicine; Visit Provider Nurse Practitioner Family | DX: N39.46 Mixed incontinence (principal) | CPT/HCPCS: 81003 ==

== ENCOUNTER 2021-08-28 11:14 | Outpatient (CLI) | payer MEDICARE, OTHER, SELFPAY ==
[2021-08-28 11:55] LABS: Basophils % 0.5 %; Eosinophils # 0.1 10^3/uL (0.0-0.8); Eosinophils % 2.5 %; Hematocrit 31.1 % (37.0-47.0); Hemoglobin 9.3 g/dL (11.5-15.3); Lymphocytes % 17.1 %; Mean Corpuscular HGB Conc 29.9 g/dL (30.0-36.0); Mean Corpuscular Hemoglobin 24.5 pg (28.0-34.0); Mean Corpuscular Volume 81.8 fl (81-99); Mean Platelet Volume 8.6 fL (7.4-10.4); Monocytes # 0.5 10^3/uL (0.2-0.9); Monocytes % 9.7 %; Nucleated Red Blood Cells % 0 %; Platelet Count 297 10^3/cmm (130-400); Red Cell Distribution Width 15.3 % (12.1-15.1); White Blood Count 5.6 10^3/uL (4.0-10.0)
[2021-08-28 12:19] LABS: Ferritin 14 ng/mL (15-150); Iron 14 ug/dL (37-145)
[2021-08-28 12:31] LABS: Percent Saturation 3.1 % (20-50); Total Iron Binding Capacity 443 mcg/dl; Unsaturated Iron Binding 429 ug/dL (112-347)
--- NOTE | 2021-08-29 08:40 | ONC FU_ITS ---
Dr. Becerril follow up note Patient: Makayla Palmer Unit #: [id number]: 1950 Dicatated By: Nena Becerril M.D.Date of Visit:Aug 28, 2021 Onc Med Follow-up/Prog Note History of Present Illness: Ms. Palmer is a 70-year-old female with history of anemia in her teen years. She reports that at that time, she was treated with iron supplements and after that she had no history of anemia even during during pregnancies, She reported that in 2016 she underwent back to back surgeries -for her lumbar fusion. The postop period was complicated by an open wound and at that time she required blood transfusion. She reports that she was doing well untill about February 2020 when she started experiencing generalized weakness and fatigue which was progressive. Her lab work-up done on August 15, 2020 showed white blood count was 6.1 hemoglobin 9.3 hematocrit 29.5 and platelets 324,000 with normal differential , MCV was 93, creatinine 0.59 and iron studies showed iron saturation 23%, iron 89, TIBC 380. She was referred to GI for EGD and colonoscopy which was done on August 28, 2020 and both were unremarkable. Ms Palmer was started on oral iron and she continued her multivitamin. Follow-up labs on September 03, 2020 showed white blood count 4.6, hemoglobin 7.5, hematocrit 24.3, platelets 311,000 MCV 100 with a normal differential, bilirubin was 0.3 serum creatinine was 0.63. She was given 2 units of packed RBCs, which she tolerated well but there was no improvement in her generalized weakness and fatigue even after blood transfusion. She reported she has noticed some blood in her stool, thought that was due to hemorrhoids and now with darker stools due to oral iron but no fresh blood per rectum.. Denies any history of gastric bypass. She does have sleep apnea for which she uses CPAP since 2017. Came for follow-up, complaining of generalized weakness and fatigue, dyspnea on exertion,, denies chest pain, denies any abdominal pain, denies any nausea or vomiting denies any melena or hematochezia denies any hemoptysis or hematemesis denies any jaundice. Medications: Alendronate Sodium 1 Tablet (of 70 mg) Oral daily, Ambien 1 Tablet (of 5 mg) Oral at bedtime PRN, amLODIPine Besylate 1 Tablet (of 5 mg) Oral daily, ARIPiprazole 1 Tablet (of 2 mg) Oral daily, Atorvastatin Calcium 1 Tablet (of 10 mg) Oral daily, Carvedilol 1 Tablet (of 6.25 mg) Oral daily, Cetirizine HCl 1 Tablet (of 10 mg) Oral daily, clonazePAM Tablet Oral PRN, Furosemide 1 Tablet (of 40 mg) Oral daily, Gabapentin (300 mg) Capsule Oral t.i.d., hydrOXYzine Pamoate 1 Capsule (of 25 mg) Oral daily, Isosorbide Mononitrate ER 1 Tablet (of 30 mg) Tablet SR 24 HR Oral daily, Losartan Potassium 1 Tablet (of 50 mg) Oral daily, Magnesium Oxide 1 Tablet (of 500 ) Oral daily, Multivitamin 1 Tablet Oral daily, Potassium Chloride ER 1 Tablet (of 20 meq) Tablet, controlled release Oral daily, Spironolactone 1 Tablet (of 100 mg) Oral daily, Tamsulosin HCl 1 Tablet (of 0.4 mg) Capsule Oral daily, Venlafaxine HCl ER (225 mg) Capsule SR 24 HR Oral daily Allergies: HYDROcodone-Acetaminophen, Iodinated Contrast Media, and Penicillins. Review of Systems: Review of Systems is not available for this patient. Vital Signs: Performed on Aug 28, 2021 14:04 Height - 61.00 in Weight - 212.2 lbs (HIGH) BSA - 1.94 sq.m BMI - 40.10 (HIGH) Temperature - 97.2 F (LOW) Pulse - 90 /min Respiration - 18 /min BP - 144/79 mm(hg) (HIGH) O2 Sat - 98 % Pain - 7 Fatigue - 8 Performance Status: 1 - No physically strenuous activity, but ambulatory and able to carry out light or sedentary work (e.g. office work, light house work). (ECOG) Physical Examination: ENMT - No mouth sores, no thrush, no jaundice, Respiratory - Lungs are clear to auscultation, Cardiovascular - Regular rate and rhythm of heart, Abdomen - Soft, bowel sounds present, Extremities - No visible edema. Lab/Imaging: Most recent lab results are not available for this patient. Impression: Normocytic normochromic anemia etiology unclear could be multifactorial including nutritional e.g. iron combined with B12 deficiency or functional iron deficiency or considering her age underlying myelodysplasia cannot be ruled out or anemia of chronic disease Osteoarthritis Sleep apnea Diabetes mellitus Congestive heart failure/myocardial infarct. Plan: Discussed with patient regarding her labs white blood count 5.6 hemoglobin 9.3 g compared to 10.8 g previously hematocrit 31.1 platelets 297,000, iron studies shows iron saturation 3.1% compared to 95% in December 2020 ferritin 14 iron 14 TIBC 443 Clinically, patient is doing reasonably well but now with progressive dyspnea on exertion and her follow-up lab work-up shows progressive iron deficiency anemia. Patient was supposed to be on oral iron twice a day but as per patient she stopped taking it. Patient denies any evidence of gross bleeding, as per patient in the past she responded well to parenteral iron. At this point we will consider, Injectafer 750 mg IV weekly x2, then she will return to clinic 1 month after her second dose As far as symptomatic progressive iron deficiency edema is concerned, patient was advised to take it easy until improvement in her iron deficiency anemia. But concern is her repeated/progressive iron deficiency anemia with no obvious evidence of gross bleeding, considering her age, there is a possibility she may have small bowel AVMs or pathology causing chronic blood loss plus minus malabsorption and moreover recently done EGD and colonoscopy was unremarkable except internal hemorrhoids. In the past we did discuss about capsule endoscopy, now patient agreed what would prefer to go to [place], [place] rather than [place] so we will refer her to gastroenterology services at [facility] for capsule endoscopy and then she will return to clinic in 1 month after second dose of Injectafer with CBC and iron studies. Signed By: Nena Becerril M.D. <<Signature on File>>
== END 2021-08-28 11:15 | disposition home or self-care (01) ==
LOC: ONCMED 11:19
PROVIDERS: PCP Internal Medicine; Visit Provider Internal Medicine Hematology & Oncology
DX: D50.9 Iron deficiency anemia, unspecified (principal); M19.90 Unspecified osteoarthritis, unspecified site; G47.33 Obstructive sleep apnea (adult) (pediatric); E11.9 Type 2 diabetes mellitus without complications; I50.9 Heart failure, unspecified; I25.2 Old myocardial infarction; Z79.899 Other long term (current) drug therapy
CPT/HCPCS: 36415; 82728; 83540; 83550; 85025; 99214

== ENCOUNTER 2021-09-03 06:37 | Outpatient (CLI) | payer MEDICARE, OTHER, SELFPAY ==
[2021-09-03] MEDS: ferric carboxy (IVPB) 750 MG in sodium chloride 0.9% (100 ml) 100 ML 460 MG IV (13:22)
[2021-09-03] MEDS: sodium chloride 0.9% (100 ml) 100 ML 75 ML ×2 (13:22→14:25)
[2021-09-03] MEDS: diphenhydrAMINE 50 mg/mL SDV 1mL 25 MG IVP (14:35)
== END 2021-09-03 06:38 | disposition home or self-care (01) ==
LOC: ONCMED 06:37
PROVIDERS: PCP Internal Medicine; Visit Provider Internal Medicine Hematology & Oncology
DX: D50.9 Iron deficiency anemia, unspecified (principal); D51.9 Vitamin B12 deficiency anemia, unspecified; Z79.899 Other long term (current) drug therapy
CPT/HCPCS: 96365; 96367; J1200; J1439

== ENCOUNTER → 2021-09-04 13:09 | Outpatient (BNVA) | payer MEDICARE, OTHER, SELFPAY | PROVIDERS: PCP Internal Medicine; Visit Provider Urology | DX: R33.9 Retention of urine, unspecified (principal) | CPT/HCPCS: 81003 ==

== ENCOUNTER 2021-09-05 18:04 | Emergency (ER) | payer MEDICARE, OTHER, SELFPAY ==
[2021-09-05 18:15] VITALS: BP 140/64; PULSE 95; RESP 21; TEMP 37; O2SAT 99; BMI 38.5
--- NOTE | 2021-09-05 18:23 | ECG_ITS ---
[facility] Test Date: 2021-09-05 Pat Name: Makayla Palmer Department: Room: Gender: Female Pattern Developer: : 1950 Requested By: Mart Philip Order Number: [id number] Agustín MD: Hetal Mason M.D. 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 [id number]
[2021-09-05 21:49] LABS: Troponin(5th) Baseline 7 ng/L (0-10)
[2021-09-05 22:15] LABS: Alanine Aminotransferase 21 U/L (0-33); Albumin Level 4.2 g/dL (3.5-5.2); Alkaline Phosphatase 73 IU/L (35-105); Aspartate Amino Transferase 22 U/L (0-32); Blood Urea Nitrogen 11 mg/dL (8-23); Calcium 8.7 mg/dL (8.5-10.5); Carbon Dioxide 19 mmol/L (22-29); Chloride 104 mmol/L (98-107); Glomerular Filtration Rate 122.3 mL/min (90-130); Glucose 78 mg/dL (65-115); NT Pro B Type Natriuretic Pept 87 pg/mL (0-125); Osmolality Calculated 286 mOsm/kg (285-295); Sodium 139 mmol/L (136-145); Total Bilirubin 0.2 mg/dL (0.15-1.2); Total Protein 7.2 g/dL (6.6-8.7)
[2021-09-05 22:36] LABS: Basophils % 0.3 %; Eosinophils # 0.2 10^3/uL (0.0-0.8); Eosinophils % 2.5 %; Hematocrit 29.3 % (37.0-47.0); Hemoglobin 8.1 g/dL (11.5-15.3); Lymphocytes # 2.1 10^3/uL (0.8-4.8); Lymphocytes % 23.7 %; Mean Corpuscular HGB Conc 27.6 g/dL (30.0-36.0); Mean Corpuscular Hemoglobin 24.6 pg (28.0-34.0); Mean Corpuscular Volume 89.1 fl (81-99); Mean Platelet Volume 9.1 fL (7.4-10.4); Monocytes # 0.8 10^3/uL (0.2-0.9); Monocytes % 9.4 %; Neutrophils # 5.48 10^3/uL (1.8-7.7); Neutrophils % 63.3 %; Nucleated Red Blood Cells # 0.1 /100WBC; Nucleated Red Blood Cells % 0.7 %; Platelet Count 349 10^3/cmm (130-400); Red Blood Count 3.29 10^6/uL (4.1-5.3); Red Cell Distribution Width 17.2 % (12.1-15.1); White Blood Count 8.7 10^3/uL (4.0-10.0)
[2021-09-05 22:54] LABS: D Dimer 0.85 ug/mIFEU (0-0.59)
--- NOTE | 2021-09-05 23:02 | CTR_ITS ---
PROCEDURE INFORMATION: Exam: CTA Chest With Contrast Exam date and time: 09/05/2021 11:02 PM Age: 71 years old Clinical indication: Shortness of breath; Chest pressure; Prior surgery; Surgery type: Spinal fusion; Patient HX: Chest pain with SOB. ; Additional info: Eval pe TECHNIQUE: Imaging protocol: Computed tomographic angiography of the chest with contrast. 3D rendering (Not supervised by radiologist): MIP and/or 3D reconstructed images were created by the technologist. Radiation optimization: All CT scans at this facility use at least one of these dose optimization techniques: automated exposure control; mA and/or kV adjustment per patient size (includes targeted exams where dose is matched to clinical indication); or iterative reconstruction. Contrast material: VISI 320; Contrast volume: 80 ml; Contrast route: INTRAVENOUS (IV); COMPARISON: CTA Chest w Abd/Pel w* 11/25/2018 9:04 AM RADIATION DOSE METRICS: Total DLP (mGy-cm): 1748.81 FINDINGS: Pulmonary arteries: No pulmonary embolism. Aorta: Unremarkable. No aortic aneurysm. No aortic dissection. Thyroid: Stable 2.1 x 2.1 cm partially calcified right thyroid lesion. Lungs: Unremarkable. No consolidation. No masses. Pleural spaces: Unremarkable. No pneumothorax. No pleural effusion. Heart: Unremarkable. No cardiomegaly. No pericardial effusion. Lymph nodes: Stable visualized but nonenlarged mediastinal lymph nodes. Diaphragm: Moderate hiatal hernia. Liver: There is a subcentimeter low-attenuation lesion of the liver which is too small to accurately characterize but may represent a cyst. Gallbladder and bile ducts: There is cholelithiasis without wall thickening or pericholecystic fluid. Bones/joints: Intact posterior fusion hardware in the lower thoracic/upper lumbar spine. Soft tissues: Unremarkable. CT/CT angio chest PE protcl [id number] IMPRESSION: 1. No pulmonary embolism. 2. Stable 2.1 x 2.1 cm partially calcified right thyroid lesion.Follow-up non-emergent thyroid ultrasound is recommended. 3. Moderate hiatal hernia. 4. Cholelithiasis without cholecystitis. COMMENTS: Consistent with the [employer] [place] [employer]'s Incidental Findings Committee white paper (J Am Radha Radiol 2015): In patients aged 35 years and older with an incidental thyroid nodule equal to or greater than 1.[address], MRI or extrathyroidal US, further evaluation with dedicated thyroid US is recommended for patients with normal life expectancy and without comorbidities. For smaller nodules without suspicious features, no further evaluation or follow up is recommended. Radiation Dose CTDIVOL = (mGy): DLP = 1748.81 (mGy-cm)
[2021-09-05 23:04] LABS: Troponin 5 2HR 7.34 ng/L (0-10); Troponin 5 2HR Delta 0.34 ABS# (0-10)
[2021-09-05 23:12] VITALS: BP 138/44; PULSE 82; RESP 20; O2SAT 100
[2021-09-05] MEDS: diphenhydrAMINE 50 mg/mL SDV 1mL IVP (23:59)
[2021-09-05] MEDS: famotidine 20 mg/2 mL INJ IVP (23:59)
[2021-09-06 00:22] VITALS: BP 132/51; PULSE 86; RESP 22; O2SAT 95
[2021-09-06 01:30] VITALS: BP 138/87; O2SAT 99
--- NOTE | 2021-09-06 01:36 | W.ED.GENADLT ---
HPI - General Adult General: Chief complaint: Anxiety Stated complaint: SOB CHEST PAIN Time Seen by Provider: 09/05/21 23:02 History of Present Illness: HPI narrative: 71-year-old female with history of anemia hyperlipidemia, hypertension who presents the emergency room with transient shortness of breath and chest pain earlier this morning. Patient was taking care of her father who has Alzheimer's disease which she felt anxious . She said that she is worried about her father is having trouble taking care of the father. Because of 2 episode of chest pain which occurred earlier morning, patient went to be evaluated in the emergency room. Patient denies any exertional chest pain, shortness of breath, pleuritic chest pain, nausea/vomiting, fever/chills. Patient felt mildly lightheaded when she had the episode of chest pain. No other focal complaints at this time. Onset: 12 hrs ago Duration:12 hrs Location:home Severity:mild Review of Systems Narrative: Constitutional: No fever, no chills. HEENT: No vision changes CV: +chest pain, no palpitations PULM: no cough, +dyspnea. GI: No abdominal pain, no N/V/D. : No dysuria MSKEL: No muscle pain SKIN: No new rashes, no lesions. NEURO: No headache, no focal weakness. +light-headedness HEME: No visible bruises PSYCH: Normal mood PFSH ED PFSH: Medical History Chronic back pain Congestive heart failure Diabetes mellitus Diabetic peripheral neuropathy associated with type 2 diabetes mellitus Fibromyalgia Hiatal hernia Incomplete bladder emptying Left carpal tunnel syndrome Major depressive disorder, 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 stress and urge urinary incontinence Myocardial infarct Osteoarthritis Osteopenia Palpitations Psychiatric care Pulmonary hypertension Sleep apnea Urinary hesitancy Surgical History H/O esophagogastroduodenoscopy (08/28/20) hiatal hernia H/O sinus surgery S/P bladder repair 2006 S/P carpal tunnel release S/P hysterectomy 2006 S/P left knee arthroscopy 2005 S/P lumbar fusion 05/29/16; 01/15/17 S/P rotator cuff repair Left S/P shoulder surgery Right S/P trigger finger release 2008 S/P wrist surgery bilateral Status post colonoscopy (08/28/20) repeat in 10 years Family History Father Cancer prostate, liver Mother Cancer breast and kidney Brother Cancer 2 brothers prostate, and one had breast cancer Other CAD (coronary artery disease) Diabetes Hypertension Denies family history of Anesthesia complication Bleeding disorder Social History Alcohol intake: never Counseling given: No Marital status: Current occupational status: retired History of recent travel: No Physical Exam Narrative: EXAM NARRATIVE: Head: Atraumatic Eyes: PERRL, conjunctiva without injection ENT: Mucous membrane moist NECK: Supple, ROM intact LUNGS: LCTAB, no crackles/rhonchi CV: RRR ABDOMEN: Soft, nontender in all quadrants EXTREMITY: Normal ROM SKIN: No rash or erythema NEURO: Awake and alert, no focal motor deficits PSYCH: Normal mood and affect Course Vital Signs: Vital signs: Vital Signs Temperature 98.6 F 09/05/21 18:15 Pulse Rate 86 09/06/21 00:22 Respiratory Rate 20 H 09/06/21 03:30 Blood Pressure 132/51 09/06/21 03:30 Pulse Oximetry 97 09/06/21 03:30 MDM - General Adult MDM Narrative: Medical decision making narrative: Patient is 71-year-old female with history of hyperlipidemia, hypertension, anemia who presents emergency room with symptoms of lightheadedness, mild chest pain and shortness of breath while taking care of her father earlier today. On exam, patient is hemodynamically stable without any focal complaints. EKG showing regular sinus rhythm at HT of [95]. Normal axis. No ST elevations/depressions to suggest coronary occlusion. Normal NM, QRS, QT intervals. Troponin x 1 wnl. Dimer elevated at 0.85. CTA negative for any acute blood clots. Patient was premedicated before CTA studies with benadryl, pepcid and methylprednisone without any adverse reactions. Patient has a hx of anemia on iron infusion/tablets. Patient noticed melena episodically x 2 episodes. She has an EGD that is scheduled next week. Per son, patient is hemodynamically stable, not actively bleeding at this time. I have offered patient admission, however at this time, patient elects to follow-up with outpatient provider for EGD. Doubt ACS/PE or other emergent causes of chest pain. No suspicion for aortic dissection given no widened mediastinum, 2+ upper extremity pulses, or tearing pain. No suspicion for PE given no pleuritic chest pain, recent immobilization or surgery hemoptysis, or other VTE risk factors. EKG is non-ischemic. XR normal. Incidental findings of thyroid calcification discussed extensively with patient. Patient received a copy of the CT report with the documented findings. Patient is instructed to follow up urgently with specialists. I have given patient follow up with our medical case manager to be seen by our outpatient endocrinology for thyroid lesion. Patient aware of a call from our medical case manager to schedule for appointment(s) and verbalizes understanding of the importance of following up. Rx iron tablets supplements Disposition: Discharge. Patient counseled regarding diagnostic impression, treatment plan. Patient given ED strict return precautions to return for continuation, worsening, or development of new symptoms. Instructed to f/u w/ PCP regarding symptoms today. Patient verbalized understanding. Lab Data: Labs: Lab Results 09/05/21 09/05/21 09/05/21 20:32 20:32 20:32 WBC RBC Hgb Hct MCV MCH MCHC RDW Plt Count MPV Neut % (Auto) Lymph % (Auto) [place] % (Auto) Eos % (Auto) Baso % (Auto) Neut # (Auto) Lymph # (Auto) [place] # (Auto) Eos # (Auto) Baso # (Auto) Nucleated RBC % (a uto) Nucleated RBCs # D-Dimer Sodium 139 mmol/L mmol/L (136-145) Potassium 4.0 mmol/L mmol/L (3.5-5.1) Chloride 104 mmol/L mmol/L (98-107) Carbon Dioxide 19 mmol/L L mmol/ L (22-29) Anion Gap 20.0 H (5-19) BUN 11 mg/dL mg/dL (8-23) Creatinine 0.5 mg/dL mg/dL (0.5-0.9) GFR Calculation 122.3 mL/min mL/m in (90-130) Glucose 78 mg/dL mg/dL (65-115) Calculated Osmolal ity 286 mOsm/kg mOsm/ kg (285-295) Calcium 8.7 mg/dL mg/dL (8.5-10.5) Total Bilirubin 0.2 mg/dL mg/dL (0.15-1.2) AST 22 U/L U/L (0-32) ALT 21 U/L U/L (0-33) Alkaline Phosphata se 73 IU/L IU/L (35-105) Troponin T Baselin e 7 ng/L ng/L (0-10) Troponin T 120 Min [place] Cancelled Delta Troponin T Cancelled NT-Pro-B Natriuret Pep 87 pg/mL pg/mL (0-125) Total Protein 7.2 g/dL g/dL (6.6-8.7) Albumin 4.2 g/dL g/dL (3.5-5.2) Globulin 3.0 g/dL g/dL (1.3-4.6) 09/05/21 09/05/21 09/05/21 22:27 22:27 22:27 WBC 8.7 10^3/uL 10^3/ uL (4.0-10.0) RBC 3.29 10^6/uL L 10 ^6/uL (4.1-5.3) Hgb 8.1 g/dL L g/dL (11.5-15.3) Hct 29.3 % L % (37.0-47.0) MCV 89.1 fl fl (81-99) MCH 24.6 pg L pg (28.0-34.0) MCHC 27.6 g/dL L g/dL (30.0-36.0) RDW 17.2 % H % (12.1-15.1) Plt Count 349 10^3/cmm 10^3 /cmm (130-400) MPV 9.1 fL fL (7.4-10.4) Neut % (Auto) 63.3 % % Lymph % (Auto) 23.7 % % [place] % (Auto) 9.4 % % Eos % (Auto) 2.5 % % Baso % (Auto) 0.3 % % Neut # (Auto) 5.48 10^3/uL 10^3 /uL (1.8-7.7) Lymph # (Auto) 2.1 10^3/uL 10^3/ uL (0.8-4.8) [place]row # (Auto) 0.8 10^3/uL 10^3/ uL (0.2-0.9) Eos # (Auto) 0.2 10^3/uL 10^3/ uL (0.0-0.8) Baso # (Auto) 0.0 10^3/uL 10^3/ uL (0.0-0.1) Nucleated RBC % (a uto) 0.7 % % Nucleated RBCs # 0.1 /100WBC /100W BC D-Dimer 0.85 ug/mIFEU H u g/mIFEU (0-0.59) Sodium Potassium Chloride Carbon Dioxide Anion Gap BUN Creatinine GFR Calculation Glucose Calculated Osmolal ity Calcium Total Bilirubin AST ALT Alkaline Phosphata se Troponin T Baselin e Troponin T 120 Min [place] 7.34 ng/L ng/L (0-10) Delta Troponin T 0.34 ABS# ABS# (0-10) NT-Pro-B Natriuret Pep Total Protein Albumin Globulin Imaging Data^: Other Imaging: Radiologist's impression: [address] [id number] Scan ReportSigned Patient: Makayla Palmer #: [id number]: 1950cct#:[id number]/Sex: 71 / FADM Date: 09/05/21Loc: ERRoom/Bed:Attending Dr: Ordering Provider/Ordering MD: Sherman Rangel MD Date of Service: 09/05/21 Procedure(s): CT angio chest PE protcl [id number] Accession Number(s): [id number] Report Number: [id number] PROCEDURE INFORMATION: Exam: CTA Chest With Contrast Exam date and time: 09/05/2021 11:02 PM Age: 71 years old Clinical indication: Shortness of breath; Chest pressure; Prior surgery; Surgery type: Spinal fusion; Patient HX: Chest pain with SOB. ; Additional info: Eval pe TECHNIQUE: Imaging protocol: Computed tomographic angiography of the chest with contrast. 3D rendering (Not supervised by radiologist): MIP and/or 3D reconstructed images were created by the technologist. Radiation optimization: All CT scans at this facility use at least one of these dose optimization techniques: automated exposure control; mA and/or kV adjustment per patient size (includes targeted exams where dose is matched to clinical indication); or iterative reconstruction. Contrast material: VISI 320; Contrast volume: 80 ml; Contrast route: INTRAVENOUS (IV); COMPARISON: CTA Chest w Abd/Pel w* 11/25/2018 9:04 AM RADIATION DOSE METRICS: Total DLP (mGy-cm): 1748.81 FINDINGS: Pulmonary arteries: No pulmonary embolism. Aorta: Unremarkable. No aortic aneurysm. No aortic dissection. Thyroid: Stable 2.1 x 2.1 cm partially calcified right thyroid lesion. Lungs: Unremarkable. No consolidation. No masses. Pleural spaces: Unremarkable. No pneumothorax. No pleural effusion. Heart: Unremarkable. No cardiomegaly. No pericardial effusion. Lymph nodes: Stable visualized but nonenlarged mediastinal lymph nodes. Diaphragm: Moderate hiatal hernia. Liver: There is a subcentimeter low-attenuation lesion of the liver which is too small to accurately characterize but may represent a cyst. Gallbladder and bile ducts: There is cholelithiasis without wall thickening or pericholecystic fluid. Bones/joints: Intact posterior fusion hardware in the lower thoracic/upper lumbar spine. Soft tissues: Unremarkable. CT/CT angio chest PE protcl [id number] IMPRESSION: 1. No pulmonary embolism. 2. Stable 2.1 x 2.1 cm partially calcified right thyroid lesion.Follow-up non-emergent thyroid ultrasound is recommended. 3. Moderate hiatal hernia. 4. Cholelithiasis without cholecystitis. COMMENTS: Consistent with the [employer]'s Incidental Findings Committee white paper (J Am Radha Radiol 2015): In patients aged 35 years and older with an incidental thyroid nodule equal to or greater than 1.[address], MRI or extrathyroidal US, further evaluation with dedicated thyroid US is recommended for patients with normal life expectancy and without comorbidities. For smaller nodules without suspicious features, no further evaluation or follow up is recommended. Radiation Dose CTDIVOL = (mGy): DLP = 1748.81 (mGy-cm) Dictated By:Shruthi Andrade By:Shruthi Andrade Date/Time:09/06/21 0335DD/ 01 Discharge Plan Discharge Patient Disposition: Home Clinical Impression: Light-headedness, Chest pain, Dyspnea, Anemia Condition: Stable Prescriptions: New ferric citrate 210 mg iron tablet 210 mg PO DAILY 10 Days RF: 0 No Action cholecalciferol (vitamin D3) 1,250 mcg (50,000 unit) capsule 1,250 mcg PO DAILY RF: 0 gabapentin 100 mg capsule 300 mg PO TID RF: 0 losartan 25 mg tablet 25 mg PO DAILY RF: 0 clonazepam 0.5 mg tablet 0.5 mg PO DAILY PRN (Reason: anxiety) Qty: 30 RF: 1 amlodipine 5 mg tablet 5 mg PO DAILY RF: 0 tamsulosin 0.4 mg capsule 0.4 mg PO BID Qty: 60 RF: 6 atorvastatin [Lipitor] 10 mg tablet 10 mg PO DAILY RF: 0 calcium carbonate [Calcium 600] 600 mg calcium (1,500 mg) tablet 600 mg PO DAILY RF: 0 alendronate 70 mg tablet 70 mg PO .weekly RF: 0 cetirizine [Zyrtec] 10 mg tablet 10 mg PO DAILY PRN (Reason: Allergy Symptoms) RF: 0 multivitamin Tablet 1 tab PO DAILY RF: 0 hydroxyzine pamoate 25 mg capsule 25 mg PO Q8H PRN (Reason: Itching) RF: 0 magnesium oxide 400 mg magnesium capsule 400 mg PO DAILY Qty: 90 RF: 3 hydrocodone-acetaminophen 10-325 mg tablet 1 tab PO QID PRN (Reason: Pain, Mild) RF: 0 aripiprazole [Abilify] 2 mg tablet 2 mg PO DAILY Qty: 30 RF: 1 venlafaxine [Effexor XR] 150 mg capsule,extended release 24hr 150 mg PO DAILY Qty: 30 RF: 1 venlafaxine [Effexor XR] 75 mg capsule,extended release 24hr 75 mg PO DAILY Qty: 30 RF: 1 isosorbide mononitrate 30 mg tablet extended release 24 hr See Rx Instructions PO BID Qty: 90 RF: 3 carvedilol 6.25 mg tablet 9.375 mg PO BID Qty: 90 RF: 6 zolpidem [Ambien] 5 mg tablet 2.5 mg PO .HS Qty: 15 RF: 1 potassium chloride 10 mEq capsule, extended release 20 meq PO DAILY Qty: 180 RF: 3 Lasix 20 mg tablet 40 mg PO QAM Qty: 180 RF: 3 Discharge Orders: Discharge ED (Routine); Ordered 09/06/21 Ordered By: Sherman Rangel Referrals: Shellie Jarvis MD [Primary Care Provider] - Discharge Diet: Advance as tolerated Discharge Activity: Resume usual activity Patient Instructions: Chest Pain (ED), Dyspnea (ED) Activity Restrictions/Additional Instructions: Come back to the emergency room if your chest pain worsens, have any fever or chills, worsening shortness of breath, worsening exertional lightheadedness, or any new or concerning complaints. Here's your CT report. Please follow up with our soil fertility extension specialist. Our medical case manager will have you follow-up with our soil fertility extension specialist in the next few days. You would be expected to have a phone call with our medical case manager who will put you on the schedule. [address] [id number] Scan ReportSigned Patient: Makayla Palmer #: [id number]: 1950cct#:[id number]/Sex: 71 / FADM Date: 09/05/21Loc: ERRoom/Bed:Attending Dr: Ordering Provider/Ordering MD: Sherman Rangel MD Date of Service: 09/05/21 Procedure(s): CT angio chest PE [facility] [id number] Accession Number(s): [id number] Report Number: [id number] PROCEDURE INFORMATION: Exam: CTA Chest With Contrast Exam date and time: 09/05/2021 11:02 PM Age: 71 years old Clinical indication: Shortness of breath; Chest pressure; Prior surgery; Surgery type: Spinal fusion; Patient HX: Chest pain with SOB. ; Additional info: Eval pe TECHNIQUE: Imaging protocol: Computed tomographic angiography of the chest with contrast. 3D rendering (Not supervised by radiologist): MIP and/or 3D reconstructed images were created by the technologist. Radiation optimization: All CT scans at this facility use at least one of these dose optimization techniques: automated exposure control; mA and/or kV adjustment per patient size (includes targeted exams where dose is matched to clinical indication); or iterative reconstruction. Contrast material: VISI 320; Contrast volume: 80 ml; Contrast route: INTRAVENOUS (IV); COMPARISON: CTA Chest w Abd/Pel w* 11/25/2018 9:04 AM RADIATION DOSE METRICS: Total DLP (mGy-cm): 1748.81 FINDINGS: Pulmonary arteries: No pulmonary embolism. Aorta: Unremarkable. No aortic aneurysm. No aortic dissection. Thyroid: Stable 2.1 x 2.1 cm partially calcified right thyroid lesion. Lungs: Unremarkable. No consolidation. No masses. Pleural spaces: Unremarkable. No pneumothorax. No pleural effusion. Heart: Unremarkable. No cardiomegaly. No pericardial effusion. Lymph nodes: Stable visualized but nonenlarged mediastinal lymph nodes. Diaphragm: Moderate hiatal hernia. Liver: There is a subcentimeter low-attenuation lesion of the liver which is too small to accurately characterize but may represent a cyst. Gallbladder and bile ducts: There is cholelithiasis without wall thickening or pericholecystic fluid. Bones/joints: Intact posterior fusion hardware in the lower thoracic/upper lumbar spine. Soft tissues: Unremarkable. CT/CT angio chest PE protcl [id number] IMPRESSION: 1. No pulmonary embolism. 2. Stable 2.1 x 2.1 cm partially calcified right thyroid lesion.Follow-up non-emergent thyroid ultrasound is recommended. 3. Moderate hiatal hernia. 4. Cholelithiasis without cholecystitis. COMMENTS: Consistent with the [employer]'s Incidental Findings Committee white paper (J Am Radha Radiol 2015): In patients aged 35 years and older with an incidental thyroid nodule equal to or greater than 1.[address], MRI or extrathyroidal US, further evaluation with dedicated thyroid US is recommended for patients with normal life expectancy and without comorbidities. For smaller nodules without suspicious features, no further evaluation or follow up is recommended. Radiation Dose CTDIVOL = (mGy): DLP = 1748.81 (mGy-cm) Dictated By:Shruthi Andrade By:Shruthi Andrade Date/Time:09/06/21 0335DD/ 6784 Coding Level of Care Code ED Metalizing Supervisor for Chg Fwmilli
[2021-09-06] MEDS: iodixanol 320 mg/mL 100mL Btl IV (02:18)
[2021-09-06 03:30] VITALS: BP 132/51; RESP 20; O2SAT 97
[2021-09-06 04:15] VITALS: BP 132/51; PULSE 78; RESP 20; O2SAT 97
--- NOTE | 2021-09-06 10:53 | DCPLANNER ---
Addendum entered by Jillian Paz 11/09/21 11:11: Patient had a follow up appointment scheduled with endocrinology - appointment was cancelled. Original Note: business analytics manager had message to schedule a follow up appointment for patient with endocrinology. business analytics manager called the endocrinology clinic, spoke with Deven, gave clinic patients information. A follow up appointment was scheduled for Thursday, September 10, 2021 at 2:[address] Nation. Clinic will call patient with appointment information.
== END 2021-09-06 04:16 | disposition home or self-care (01) ==
PROVIDERS: Family Medicine; Emergency Provider Emergency Medicine; PCP Internal Medicine
DX: R07.9 Chest pain, unspecified (principal); R06.00 Dyspnea, unspecified; R42 Dizziness and giddiness; D64.9 Anemia, unspecified; I11.0 Hypertensive heart disease with heart failure; I50.9 Heart failure, unspecified; E11.40 Type 2 diabetes mellitus with diabetic neuropathy, unspecified; I25.2 Old myocardial infarction; E78.5 Hyperlipidemia, unspecified
CPT/HCPCS: 36415; 71275; 80053; 83880; 84484; 85025; 85378; 93005; 96374; 96375; 99283; J1200; J2930; J3490; Q9967

== ENCOUNTER 2021-09-06 13:57 | Outpatient (CLI) | payer MEDICARE, OTHER, SELFPAY ==
[2021-09-06 14:38] LABS: Basophils % 0.3 %; Hematocrit 28.1 % (37.0-47.0); Lymphocytes % 7.1 %; Mean Corpuscular HGB Conc 28.5 g/dL (30.0-36.0); Mean Corpuscular Hemoglobin 24.8 pg (28.0-34.0); Mean Platelet Volume 9.9 fL (7.4-10.4); Monocytes # 0.7 10^3/uL (0.2-0.9); Monocytes % 4.9 %; Neutrophils # 12.62 10^3/uL (1.8-7.7); Neutrophils % 86.8 %; Nucleated Red Blood Cells # 0.1 /100WBC; Nucleated Red Blood Cells % 0.5 %; Platelet Count 360 10^3/cmm (130-400); Red Blood Count 3.23 10^6/uL (4.1-5.3); White Blood Count 14.5 10^3/uL (4.0-10.0)
== END 2021-09-06 18:24 | disposition home or self-care (01) ==
LOC: RAD 14:01 → LAB 14:01 → CSU 16:54
PROVIDERS: PCP Internal Medicine; Visit Provider Nurse Practitioner Family
DX: D64.9 Anemia, unspecified (principal); K92.1 Melena; I50.30 Unspecified diastolic (congestive) heart failure
CPT/HCPCS: 85025

== ENCOUNTER 2021-09-07 18:11 | Emergency (ER) | payer MEDICARE, OTHER, SELFPAY ==
--- NOTE | 2021-09-07 18:12 | XRR_ITS ---
PROCEDURE INFORMATION: Exam: XR Chest Exam date and time: 09/07/2021 6:12 PM Age: 71 years old Clinical indication: Chest wall pain; Additional info: Cp TECHNIQUE: Imaging protocol: XR of the chest. Views: 1 view. COMPARISON: CT angio chest PE protcl [id number] 09/06/2021 2:04 AM FINDINGS: Lungs: Unremarkable. No consolidation. Pleural spaces: Unremarkable. No pleural effusion. No pneumothorax. Heart/Mediastinum: Large hiatal hernia. Negative for cardiomegaly. Bones/joints: Unremarkable. Lumbar spine posterior fusion. Surgical anchor in the proximal left humerus. XR/XR chest 1V portable [id number] IMPRESSION: No acute findings. Radiation Dose CTDIVOL = (mGy): DLP = (mGy-cm)
--- NOTE | 2021-09-07 18:13 | ECG_ITS ---
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 Measurements Intervals [place] Rate: 86 P: -32 SD: 135 QRS: 5 QRSD: 94 T: 9 QT: 339 QTc: 406 Interpretive Statements SINUS RHYTHM Compared to ECG 09/05/2021 18:33:24 No significant changes Electronically Signed On 09-07-2021 22:06:47 MAMMAL KEEPER by Mallory Hudson M.D. [email or web address]
[2021-09-07 18:18] VITALS: BP 182/98; PULSE 86; RESP 22; TEMP 37.3; BMI 38.7
--- NOTE | 2021-09-07 18:32 | W.ED.CHESTPA ---
HPI - Chest Pain General: Chief Complaint: Chest Pain Stated Complaint: Cp after blood transfusion Time Seen by Provider: 09/07/21 18:18 Source: patient Mode of arrival: ambulatory Limitations: no limitations History of Present Illness: HPI narrative: 71-year-old female states she has been having dyspnea for months all intermittent chest pain she also has chronic anemia states she was getting a blood transfusion today had 2 units that the end of the transfusion started having some chest pain. States pain sharp in nature rates it a 7 out of 10 she also has dyspnea denies any diaphoresis denies any worsening improving factors. Denies any vomiting or diarrhea. MD complaint: chest pain Associated symptoms: Deny abdominal pain, dyspnea, fever(s), nausea or vomiting Review of Systems Const: Denies: fever(s), chills, body aches or change in appetite Eyes: Denies: blurry vision or eye discomfort ENMT: Denies: throat pain or dental pain Card: Reports: chest pain Resp: Denies: dyspnea GI: Denies: abdominal pain, nausea, vomiting or diarrhea : Denies: dysuria Musc: Denies: neck pain or back pain Skin/Breast: Denies: rash Neuro: Denies: headache(s) Psych: Denies: depression Vipul/Lymph: Denies: easy bruising All/Imm: Denies: urticaria PFSH ED PFSH: Medical History Chronic back pain Congestive heart failure Diabetes mellitus Diabetic peripheral neuropathy associated with type 2 diabetes mellitus Fibromyalgia Hiatal hernia Incomplete bladder emptying Left carpal tunnel syndrome Major depressive disorder, 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 stress and urge urinary incontinence Myocardial infarct Osteoarthritis Osteopenia Palpitations Psychiatric care Pulmonary hypertension Sleep apnea Urinary hesitancy Surgical History H/O esophagogastroduodenoscopy (08/28/20) hiatal hernia H/O sinus surgery S/P bladder repair 2005 S/P carpal tunnel release S/P hysterectomy 2006 S/P left knee arthroscopy 2005 S/P lumbar fusion 05/29/16; 01/15/17 S/P rotator cuff repair Left S/P shoulder surgery Right S/P trigger finger release 2008 S/P wrist surgery bilateral Status post colonoscopy (08/28/20) repeat in 10 years Family History Father Cancer prostate, liver Mother Cancer breast and kidney Brother Cancer 2 brothers prostate, and one had breast cancer Other CAD (coronary artery disease) Diabetes Hypertension Denies family history of Anesthesia complication Bleeding disorder Social History Alcohol intake: never Counseling given: No Marital status: Current occupational status: retired History of recent travel: No Physical Exam Const: COMMON NORMALS: no acute distress, patient oriented x3 and healthy appearing HENMT: COMMON NORMALS: normocephalic and atraumatic HEAD & SCALP: normocephalic and atraumatic Eye: COMMON NORMALS: Equal, round and reactive pupils present and EOMs intact bilaterally PUPIL: Yes Equal, round and reactive pupils present Neck/C-Spine: COMMON NORMALS: full ROM and supple Chest: COMMONS NORMALS: normal inspection of the chest and normal palpation of entire chest wall Resp: COMMON NORMALS: normal respiratory effort, No retractions, No use of accessory muscles and clear to auscultation bilaterally AUSCULTATION: clear to auscultation bilaterally Cardio: COMMON NORMALS: regular rate, regular rhythm and No murmurs present (Cardio) RATE: regular rate RHYTHM: regular rhythm GI: COMMON NORMALS: Normal to inspection, nondistended, normoactive bowel sounds present, Soft to palpation, non-tender and no masses PALPATION: Yes Soft to palpation Extremity: COMMON NORMALS: normal to inspection and full ROM Neuro: COMMON NORMALS: patient oriented x3, moves all extremities and no focal motor deficits Psych: COMMON NORMALS: mental status grossly normal, Normal thought process present and cooperative THOUGHT PROCESS: Normal thought process present Skin: COMMON NORMALS: no rashes or lesions noted and no wounds GENERAL SKIN EXAM: no rashes or lesions noted Course Vital Signs: Vital signs: Vital Signs Temperature 99.2 F 09/07/21 18:18 Pulse Rate 91 09/07/21 20:27 Respiratory Rate 20 H 09/07/21 20:27 Blood Pressure 139/79 09/07/21 20:27 Pulse Oximetry 97 09/07/21 20:27 MDM - Chest Pain MDM Narrative: Medical decision making narrative: Patient presents here with chest pain could be due to her transfusion she has no signs of acute coronary syndrome troponins are negative chest x-ray EKGs are normal she has no signs of pulmonary [place] she is well-appearing here and is stable for discharge she is to follow-up PCP and return if worsening. Lab Data: Labs: Lab Results 09/07/21 09/07/21 09/07/21 18:33 18:33 18:33 WBC 11.8 10^3/uL H 10 ^3/uL (4.0-10.0) RBC 3.91 10^6/uL L 10 ^6/uL (4.1-5.3) Hgb 10.2 g/dL L g/dL (11.5-15.3) Hct 33.2 % L % (37.0-47.0) MCV 84.9 fl fl (81-99) MCH 26.1 pg L pg (28.0-34.0) MCHC 30.7 g/dL D g/dL (30.0-36.0) RDW 18.5 % H % (12.1-15.1) Plt Count 199 10^3/cmm D 1 0^3/cmm (130-400) MPV 10.0 fL fL (7.4-10.4) Neut % (Auto) 70.6 % % Lymph % (Auto) 18.0 % % [place] % (Auto) 8.1 % % Eos % (Auto) 1.6 % % Baso % (Auto) 0.4 % % Neut # (Auto) 8.33 10^3/uL H 10 ^3/uL (1.8-7.7) Lymph # (Auto) 2.1 10^3/uL 10^3/ uL (0.8-4.8) [place] # (Auto) 1.0 10^3/uL H 10^ 3/uL (0.2-0.9) Eos # (Auto) 0.2 10^3/uL 10^3/ uL (0.0-0.8) Baso # (Auto) 0.1 10^3/uL 10^3/ uL (0.0-0.1) Nucleated RBC % (a uto) 0.9 % % Nucleated RBCs # 0.1 /100WBC /100W BC PT 12.40 SECONDS SEC ONDS (12.1-14.9) INR 0.90 (0.8-1.2) Sodium 139 mmol/L mmol/L (136-145) Potassium 3.9 mmol/L mmol/L (3.5-5.1) Chloride 105 mmol/L mmol/L (98-107) Carbon Dioxide 19 mmol/L L mmol/ L (22-29) Anion Gap 18.9 (5-19) BUN 12 mg/dL mg/dL (8-23) Creatinine 0.6 mg/dL mg/dL (0.5-0.9) GFR Calculation 99.1 mL/min mL/mi n (90-130) Glucose 87 mg/dL mg/dL (65-115) Calculated Osmolal ity 287 mOsm/kg mOsm/ kg (285-295) Calcium 8.3 mg/dL L mg/dL (8.5-10.5) Total Bilirubin 0.8 mg/dL mg/dL (0.15-1.2) AST 21 U/L U/L (0-32) ALT 16 U/L U/L (0-33) Alkaline Phosphata se 64 IU/L IU/L (35-105) Troponin T Baselin e Troponin T 120 Min [place] Total Protein 6.6 g/dL g/dL (6.6-8.7) Albumin 4.0 g/dL g/dL (3.5-5.2) Globulin 2.6 g/dL g/dL (1.3-4.6) 09/07/21 09/07/21 18:33 20:16 WBC RBC Hgb Hct MCV MCH MCHC RDW Plt Count MPV Neut % (Auto) Lymph % (Auto) [place] % (Auto) Eos % (Auto) Baso % (Auto) Neut # (Auto) Lymph # (Auto) [place] # (Auto) Eos # (Auto) Baso # (Auto) Nucleated RBC % (a uto) Nucleated RBCs # PT INR Sodium Potassium Chloride Carbon Dioxide Anion Gap BUN Creatinine GFR Calculation Glucose Calculated Osmolal ity Calcium Total Bilirubin AST ALT Alkaline Phosphata se Troponin T Baselin e 8 ng/L ng/L (0-10) Troponin T 120 Min [place] 6.00 ng/L ng/L (0-10) Total Protein Albumin Globulin Imaging Data^: CXR: Attestation: I personally reviewed and interpreted this imaging study as follows: Radiologist's impression: [facility] [address] [place] [address] XRay Report Signed Patient: Makayla Palmer Unit #: [id number] : 1950 Age/Sex: 71 / F ADM Date: 09/07/21 Loc: ER Room/Bed: Attending Dr: Ordering Provider/Ordering MD: Julia Hobson MD Date of Service: 09/07/21 Procedure(s): XR chest 1V portable [id number] Accession Number(s): [id number] Report Number: [id number] PROCEDURE INFORMATION: Exam: XR Chest Exam date and time: 09/07/2021 6:12 PM Age: 71 years old Clinical indication: Chest wall pain; Additional info: Cp TECHNIQUE: Imaging protocol: XR of the chest. Views: 1 view. COMPARISON: CT angio chest PE protcl [id number] 09/06/2021 2:04 AM FINDINGS: Lungs: Unremarkable. No consolidation. Pleural spaces: Unremarkable. No pleural effusion. No pneumothorax. Heart/Mediastinum: Large hiatal hernia. Negative for cardiomegaly. Bones/joints: Unremarkable. Lumbar spine posterior fusion. Surgical anchor in the proximal left humerus. XR/XR chest 1V portable [id number] IMPRESSION: No acute findings. Radiation Dose CTDIVOL = (mGy): DLP = (mGy-cm) Dictated By: Harris Quezada Signed By: Harris Quezada Signed Date/Time: 09/07/212016 DD/ 11 EKG Data^: EKG 1: Attestation: I personally reviewed and interpreted this EKG as follows: EKG interpretation date: 09/07/21 EKG interpretation time: 18:20 Interpretation: nsr hr [address] or t wave abnormalities qrs 94 qtc 382 Discharge Plan Discharge Patient Disposition: Home Clinical Impression: Chest pain Qualifiers: Chest pain type: unspecified Qualified Code(s): R07.9 - Chest pain, unspecified Condition: Stable Prescriptions: No Action gabapentin 100 mg capsule 300 mg PO TID RF: 0 losartan 25 mg tablet 25 mg PO DAILY RF: 0 clonazepam 0.5 mg tablet 0.5 mg PO DAILY PRN (Reason: anxiety) Qty: 30 RF: 1 amlodipine 5 mg tablet 5 mg PO DAILY RF: 0 tamsulosin 0.4 mg capsule 0.4 mg PO BID Qty: 60 RF: 6 atorvastatin [Lipitor] 10 mg tablet 10 mg PO DAILY RF: 0 calcium carbonate [Calcium 600] 600 mg calcium (1,500 mg) tablet 600 mg PO DAILY RF: 0 alendronate 70 mg tablet 70 mg PO Q7D RF: 0 cetirizine [Zyrtec] 10 mg tablet 10 mg PO DAILY PRN (Reason: Allergy Symptoms) RF: 0 multivitamin Tablet 1 tab PO DAILY RF: 0 hydroxyzine pamoate 25 mg capsule 25 mg PO Q8H PRN (Reason: Itching) RF: 0 magnesium oxide 400 mg magnesium capsule 400 mg PO DAILY Qty: 90 RF: 3 hydrocodone-acetaminophen 10-325 mg tablet 1 tab PO QID PRN (Reason: Pain, Mild) RF: 0 aripiprazole [Abilify] 2 mg tablet 2 mg PO DAILY Qty: 30 RF: 1 venlafaxine [Effexor XR] 150 mg capsule,extended release 24hr 150 mg PO DAILY Qty: 30 RF: 1 venlafaxine [Effexor XR] 75 mg capsule,extended release 24hr 75 mg PO DAILY Qty: 30 RF: 1 potassium chloride 10 mEq capsule, extended release 20 meq PO DAILY Qty: 180 RF: 3 Lasix 20 mg tablet 40 mg PO QAM Qty: 180 RF: 3 Vitamin D3 10 mcg (400 unit) Capsule 10 mcg PO DAILY RF: 0 carvedilol 6.25 mg tablet 6.25 mg PO BID RF: 0 isosorbide mononitrate 30 mg tablet extended release 24 hr 15 mg PO BID RF: 0 Ambien 5 mg tablet 2.5 mg PO BEDTIME PRN (Reason: Insomnia) RF: 0 ferric citrate 210 mg iron tablet 210 mg PO DAILY 10 Days RF: 0 Discharge Orders: Discharge ED (Routine); Ordered 09/07/21 Ordered By: Julia Hobson Referrals: Shellie Jarvis MD [Primary Care Provider] - 1-3 days Discharge Diet: Advance as tolerated Discharge Activity: Resume usual activity Patient Instructions: Chest Pain (ED) Coding Level of Care Code ED [employer] for Chg Fwd Exam Comprehensive
[2021-09-07 18:40] LABS: Basophils # 0.1 10^3/uL (0.0-0.1); Basophils % 0.4 %; Eosinophils # 0.2 10^3/uL (0.0-0.8); Eosinophils % 1.6 %; Hematocrit 33.2 % (37.0-47.0); Hemoglobin 10.2 g/dL (11.5-15.3); Lymphocytes # 2.1 10^3/uL (0.8-4.8); Mean Corpuscular HGB Conc 30.7 g/dL (30.0-36.0); Mean Corpuscular Hemoglobin 26.1 pg (28.0-34.0); Mean Corpuscular Volume 84.9 fl (81-99); Monocytes % 8.1 %; Neutrophils # 8.33 10^3/uL (1.8-7.7); Neutrophils % 70.6 %; Nucleated Red Blood Cells # 0.1 /100WBC; Nucleated Red Blood Cells % 0.9 %; Platelet Count 199 10^3/cmm (130-400); Red Blood Count 3.91 10^6/uL (4.1-5.3); Red Cell Distribution Width 18.5 % (12.1-15.1); White Blood Count 11.8 10^3/uL (4.0-10.0)
[2021-09-07 18:53] VITALS: RESP 22
[2021-09-07] MEDS: morphine 4 mg/mL SDV 1 mL IVP (18:53)
[2021-09-07] MEDS: ondansetron 2 mg/ML SDV 2 mL 4 MG IVP (18:54)
[2021-09-07 19:04] LABS: Alanine Aminotransferase 16 U/L (0-33); Alkaline Phosphatase 64 IU/L (35-105); Anion Gap 18.9 (5-19); Aspartate Amino Transferase 21 U/L (0-32); Blood Urea Nitrogen 12 mg/dL (8-23); Calcium 8.3 mg/dL (8.5-10.5); Carbon Dioxide 19 mmol/L (22-29); Chloride 105 mmol/L (98-107); Creatinine Clr Calc Pharmacy 69.0194; Globulin 2.6 g/dL (1.3-4.6); Glomerular Filtration Rate 99.1 mL/min (90-130); Glucose 87 mg/dL (65-115); Osmolality Calculated 287 mOsm/kg (285-295); Potassium 3.9 mmol/L (3.5-5.1); Sodium 139 mmol/L (136-145); Total Bilirubin 0.8 mg/dL (0.15-1.2); Total Protein 6.6 g/dL (6.6-8.7)
[2021-09-07 19:06] LABS: Troponin(5th) Baseline 8 ng/L (0-10)
--- NOTE | 2021-09-07 19:53 | PC.NURSE ---
Pt. states that she feels alot better . Pt. states that she would like to know what the plan is and when she can go home. Pt states that she has an infusion planned for thursday for her iron deficiency.
[2021-09-07 19:54] VITALS: BP 110/70; PULSE 93; RESP 18; O2SAT 98
[2021-09-07 20:27] VITALS: BP 139/79; PULSE 91; RESP 20; O2SAT 97
[2021-09-07 21:31] VITALS: BP 122/74; PULSE 74; RESP 16; O2SAT 100
--- NOTE | 2021-09-07 21:42 | PC.NURSE ---
Pt. given 2mg of morphine and states that she does not want the other 2 mg. Wasted in pyxis.
== END 2021-09-07 21:37 | disposition home or self-care (01) ==
PROVIDERS: Emergency Provider Emergency Medicine; PCP Internal Medicine
DX: R07.9 Chest pain, unspecified (principal); I50.9 Heart failure, unspecified; E11.42 Type 2 diabetes mellitus with diabetic polyneuropathy; I25.2 Old myocardial infarction
CPT/HCPCS: 36415; 71045; 80053; 84484; 85025; 85610; 86850; 86900; 86920; 93005; 96374; 96375; 99284; J2270; J2405; P9016

== ENCOUNTER 2021-09-10 12:55 | Outpatient (CLI) | payer MEDICARE, OTHER, SELFPAY ==
[2021-09-10 13:32] LABS: Basophils % 0.3 %; Eosinophils # 0.2 10^3/uL (0.0-0.8); Eosinophils % 2.1 %; Hematocrit 39.5 % (37.0-47.0); Hemoglobin 12.4 g/dL (11.5-15.3); Lymphocytes # 1.6 10^3/uL (0.8-4.8); Lymphocytes % 15.8 %; Mean Corpuscular HGB Conc 31.4 g/dL (30.0-36.0); Mean Corpuscular Hemoglobin 26.7 pg (28.0-34.0); Mean Corpuscular Volume 84.9 fl (81-99); Mean Platelet Volume 8.7 fL (7.4-10.4); Monocytes # 0.8 10^3/uL (0.2-0.9); Monocytes % 7.7 %; Neutrophils # 7.31 10^3/uL (1.8-7.7); Neutrophils % 73.6 %; Nucleated Red Blood Cells % 0 %; Platelet Count 317 10^3/cmm (130-400); Red Blood Count 4.65 10^6/uL (4.1-5.3); White Blood Count 9.9 10^3/uL (4.0-10.0)
[2021-09-10] MEDS: diphenhydrAMINE 50 mg/mL SDV 1mL 25 MG IVP (13:55)
[2021-09-10] MEDS: ferric carboxy (IVPB) 750 MG in sodium chloride 0.9% (100 ml) 100 ML 460 MG IV (14:04)
[2021-09-10] MEDS: sodium chloride 0.9% (100 ml) 100 ML 75 ML (14:04)
== END 2021-09-10 12:56 | disposition home or self-care (01) ==
PROVIDERS: PCP Internal Medicine; Visit Provider Internal Medicine Hematology & Oncology
DX: D50.9 Iron deficiency anemia, unspecified (principal)
CPT/HCPCS: 85025; 96365; 96375; J1200; J1439

== ENCOUNTER 2021-09-16 13:58 | Outpatient (CLI) | payer MEDICARE, OTHER, SELFPAY ==
--- NOTE | 2021-09-16 14:04 | CT_ITS ---
WS: [id number] CT NECK WITHOUT CONTRAST. HISTORY: OTALGIA LEFT EAR TECHNIQUE: Contiguous 5 mm axial images are performed through the neck without intravenous contrast. Sagittal and coronal reformats are also submitted. All CT scans at [facility] use at least on e of these dose optimization techniques: automated exposure control; mA and/or kV adjustment per tatiana ent size (includes targeted exams where dose is matched to clinical indication); or iterative reconst ruction. CONTRAST: CONTRAST: None DLP: 1521.85 mGycm COMPARISON: 03/16/2020 Nasopharynx, oropharynx, hypopharynx and larynx are unremarkable. No soft tissue masses or abnormal e nhancement. Torus tubarius and fossa of Rosenmuller and parapharyngeal fat are normal. No significant lymphadenopathy is identified. Partially calcified low-attenuation nodule in the posterior inferior RIGHT thyroid measures 2.5 x 2.0 cm and has been previously described. Nodule has very minimally increased in size since 2017. Cannot exclude low-grade neoplasm. Parotid and submandibular glands are negative. Advanced degenerative disc disease and small osteophytes at C5-6 and C6-7. No fractures. Visualized portions of the skull base demonstrate no abnormalities. Orbits and globes are within norm al limits. No soft tissue masses. Mucoperiosteal thickening throughout the LEFT maxillary sinus. Lung apices are clear. CT/CT neck wo con [id number] IMPRESSION: 1. No abnormality noted in the LEFT neck to explain left ear pain. The parapha ryngeal fat is normal. No bone or soft tissue abnormality on this unenhanced st udy. 2. Again noted is the partially calcified RIGHT thyroid nodule which has only minimally increased in size since 2017. 3. No adenopathy.
== END 2021-09-16 13:59 | disposition home or self-care (01) ==
PROVIDERS: PCP Internal Medicine; Visit Provider Specialist
DX: H92.02 Otalgia, left ear (principal)
CPT/HCPCS: 70490

== ENCOUNTER 2021-09-19 13:03 | Outpatient (CLI) | payer MEDICARE, OTHER, SELFPAY ==
[2021-09-19 13:38] LABS: Basophils % 0.3 %; Eosinophils # 0.2 10^3/uL (0.0-0.8); Eosinophils % 2.4 %; Hematocrit 38.7 % (37.0-47.0); Hemoglobin 11.7 g/dL (11.5-15.3); Lymphocytes # 1.4 10^3/uL (0.8-4.8); Lymphocytes % 21.3 %; Mean Corpuscular HGB Conc 30.2 g/dL (30.0-36.0); Mean Corpuscular Hemoglobin 27.5 pg (28.0-34.0); Mean Corpuscular Volume 90.8 fl (81-99); Mean Platelet Volume 8.9 fL (7.4-10.4); Monocytes # 0.6 10^3/uL (0.2-0.9); Monocytes % 9.3 %; Neutrophils # 4.22 10^3/uL (1.8-7.7); Neutrophils % 66.4 %; Nucleated Red Blood Cells % 0 %; Platelet Count 251 10^3/cmm (130-400); Red Blood Count 4.26 10^6/uL (4.1-5.3); Red Cell Distribution Width 22.3 % (12.1-15.1); White Blood Count 6.4 10^3/uL (4.0-10.0)
[2021-09-19 15:39] LABS: SARS Covid-2 Antigen Negative (Negative)
--- NOTE | 2021-09-19 15:44 | ONC FU_ITS ---
Dr. Becerril follow up note Patient: Makayla Palmer Unit #: [id number]: 1950 Dicatated By: Nena Becerril M.D.Date of Visit:Sep 19, 2021 Onc Med Follow-up/Prog Note History of Present Illness: Ms. Palmer is a 71-year-old female with history of anemia in her teen years. She reports that at that time, she was treated with iron supplements and after that she had no history of anemia even during during pregnancies, She reported that in 2016 she underwent back to back surgeries -for her lumbar fusion. The postop period was complicated by an open wound and at that time she required blood transfusion. She reports that she was doing well untill about February 2020 when she started experiencing generalized weakness and fatigue which was progressive. Her lab work-up done on August 15, 2020 showed white blood count was 6.1 hemoglobin 9.3 hematocrit 29.5 and platelets 324,000 with normal differential , MCV was 93, creatinine 0.59 and iron studies showed iron saturation 23%, iron 89, TIBC 380. She was referred to GI for EGD and colonoscopy which was done on August 28, 2020 and both were unremarkable. Ms Palmer was started on oral iron and she continued her multivitamin. Follow-up labs on September 03, 2020 showed white blood count 4.6, hemoglobin 7.5, hematocrit 24.3, platelets 311,000 MCV 100 with a normal differential, bilirubin was 0.3 serum creatinine was 0.63. She was given 2 units of packed RBCs, which she tolerated well but there was no improvement in her generalized weakness and fatigue even after blood transfusion. She reported she has noticed some blood in her stool, thought that was due to hemorrhoids and now with darker stools due to oral iron but no fresh blood per rectum.. Denies any history of gastric bypass. She does have sleep apnea for which she uses CPAP since 2017. Came for follow-up, denies any specific complaints, except generalized weakness and fatigue, mild dyspnea on exertion, dry cough but no fever chills, no nausea or vomiting, no diarrhea or constipation, no melena or hematochezia, no hemoptysis hematemesis, no jaundice Medications: Alendronate Sodium 1 Tablet (of 70 mg) Oral daily, Ambien 1 Tablet (of 5 mg) Oral at bedtime PRN, amLODIPine Besylate 1 Tablet (of 5 mg) Oral daily, ARIPiprazole 1 Tablet (of 2 mg) Oral daily, Atorvastatin Calcium 1 Tablet (of 10 mg) Oral daily, Carvedilol 1 Tablet (of 6.25 mg) Oral daily, Cetirizine HCl 1 Tablet (of 10 mg) Oral daily, clonazePAM Tablet Oral PRN, Furosemide 1 Tablet (of 40 mg) Oral daily, Gabapentin (300 mg) Capsule Oral t.i.d., hydrOXYzine Pamoate 1 Capsule (of 25 mg) Oral daily, Isosorbide Mononitrate ER 1 Tablet (of 30 mg) Tablet SR 24 HR Oral daily, Losartan Potassium 1 Tablet (of 50 mg) Oral daily, Magnesium Oxide 1 Tablet (of 500 ) Oral daily, Multivitamin 1 Tablet Oral daily, Potassium Chloride ER 1 Tablet (of 20 meq) Tablet, controlled release Oral daily, Spironolactone 1 Tablet (of 100 mg) Oral daily, Tamsulosin HCl 1 Tablet (of 0.4 mg) Capsule Oral daily, Venlafaxine HCl ER (225 mg) Capsule SR 24 HR Oral daily Allergies: HYDROcodone-Acetaminophen, Iodinated Contrast Media, and Penicillins. Review of Systems: Review of Systems is not available for this patient. Vital Signs: Performed on Sep 19, 2021 14:13 Height - 61.00 in Weight - 208.0 lbs (LOW) BSA - 1.92 sq.m BMI - 39.30 (HIGH) Temperature - 99.9 F (HIGH) Pulse - 83 /min Respiration - 18 /min BP - 123/76 mm(hg) O2 Sat - 97 % Pain - 5 Fatigue - 6 Performance Status: 1 - No physically strenuous activity, but ambulatory and able to carry out light or sedentary work (e.g. office work, light house work). (ECOG) Physical Examination: ENMT - No mouth sores, no thrush, no jaundice, Respiratory - Lungs are clear to auscultation, Cardiovascular - Regular rate and rhythm of heart, Abdomen - Soft, bowel sounds present, Extremities - No visible edema. Lab/Imaging: Most recent lab results are not available for this patient. Impression: Normocytic normochromic anemia etiology unclear could be multifactorial including nutritional e.g. iron combined with B12 deficiency or functional iron deficiency or considering her age underlying myelodysplasia cannot be ruled out or anemia of chronic disease Osteoarthritis Sleep apnea Diabetes mellitus Congestive heart failure/myocardial infarct. Plan: Discussed with patient regarding her labs white blood count 6.4 hemoglobin 11.7 hematocrit 38.7 platelets 251,000 Clinically, patient is doing reasonably well, except persistent generalized weakness and fatigue although her follow-up CBC shows hemoglobin in normal range but on the lower side patient recently received Injectafer 750 mg IV x2 in August 2021, so etiology of her generalized weakness fatigue could be multifactorial including noncompliance with CPAP or underlying cardiopulmonary condition, as per patient both medical consultant and virologist have ruled out cardiopulmonary etiology. She said her brother who lives in [place] wants her to see physician at [place], she will discuss with her PMD regarding referred to wellness center at [place] for thorough evaluation. , From hematology point of view, her hemoglobin has improved with parenteral iron, is less likely contributing to her generalized weakness and fatigue, her B12 level was also within normal range We will continue to monitor she will return to clinic in 1 month with CBC and iron studies, if her symptoms persist, will check copper and zinc level, as copper and zinc deficiency is a common finding in some patient with gastric bypass surgery Patient was advised to be compliant with her CPAP machine As far as dry cough, feverish feeling is a concern, we will do Covid testing, patient was advised to contact PMD or go to [facility] in case there is a worsening of symptoms. Signed By: Nena Becerril M.D. <<Signature on File>>
== END 2021-09-19 13:04 | disposition home or self-care (01) ==
LOC: ONCMED 13:08
PROVIDERS: PCP Internal Medicine; Visit Provider Internal Medicine Hematology & Oncology
DX: D64.9 Anemia, unspecified (principal); M19.90 Unspecified osteoarthritis, unspecified site; G47.30 Sleep apnea, unspecified; E11.9 Type 2 diabetes mellitus without complications; I50.9 Heart failure, unspecified; I21.9 Acute myocardial infarction, unspecified; Z79.899 Other long term (current) drug therapy
CPT/HCPCS: 36415; 85025; 87426; 99214

== ENCOUNTER → 2021-10-02 07:54 | Outpatient (BNVA) | payer MEDICARE, OTHER, SELFPAY | PROVIDERS: PCP Internal Medicine; Visit Provider Nurse Practitioner | DX: F33.2 Major depressive disorder, recurrent severe without psychotic features (principal) | CPT/HCPCS: 99214 ==

== ENCOUNTER → 2021-11-27 10:55 | Outpatient (BNVA) | payer MEDICARE, OTHER, SELFPAY | PROVIDERS: PCP Internal Medicine; Visit Provider Nurse Practitioner | DX: F33.2 Major depressive disorder, recurrent severe without psychotic features (principal) | CPT/HCPCS: 99214 ==

== ENCOUNTER 2021-12-04 12:15 | Outpatient (CLI) | payer MEDICARE, OTHER, SELFPAY ==
[2021-12-04 13:23] LABS: Ferritin 118 ng/mL (15-150); Iron 51 ug/dL (37-145)
[2021-12-04 13:39] LABS: Percent Saturation 13.6 % (20-50); Total Iron Binding Capacity 375 mcg/dl; Unsaturated Iron Binding 324 ug/dL (112-347)
[2021-12-04 14:06] LABS: Basophils % 0.3 %; Eosinophils # 0.1 10^3/uL (0.0-0.8); Eosinophils % 1.7 %; Hematocrit 38.6 % (37.0-47.0); Hemoglobin 12.1 g/dL (11.5-15.3); Lymphocytes # 1.9 10^3/uL (0.8-4.8); Lymphocytes % 24.1 %; Mean Corpuscular HGB Conc 31.3 g/dL (30.0-36.0); Mean Corpuscular Hemoglobin 29.4 pg (28.0-34.0); Mean Corpuscular Volume 93.9 fl (81-99); Mean Platelet Volume 9.2 fL (7.4-10.4); Monocytes # 0.4 10^3/uL (0.2-0.9); Monocytes % 5.5 %; Neutrophils # 5.34 10^3/uL (1.8-7.7); Neutrophils % 68.3 %; Nucleated Red Blood Cells % 0 %; Platelet Count 307 10^3/cmm (130-400); Red Blood Count 4.11 10^6/uL (4.1-5.3); Red Cell Distribution Width 15.4 % (12.1-15.1); White Blood Count 7.8 10^3/uL (4.0-10.0)
--- NOTE | 2021-12-04 15:00 | ONC FU_ITS ---
Irena Wilson Progress Note Patient: Makayla Palmer Unit #: [id number]: 1950 Dicatated By: Irena Wilson N.P.Date of Visit:Dec 04, 2021 Onc MED Follow-up/Prog Note Chief Complaint: Anemia History of Present Illness: Ms. Palmer is a 71-year-old female with history of anemia in her teen years. She reports that at that time, she was treated with iron supplements and after that she had no history of anemia even during during pregnancies, She reported that in 2016 she underwent back to back surgeries -for her lumbar fusion. The postop period was complicated by an open wound and at that time she required blood transfusion. She reports that she was doing well untill about February 2020 when she started experiencing generalized weakness and fatigue which was progressive. Her lab work-up done on August 15, 2020 showed white blood count was 6.1 hemoglobin 9.3 hematocrit 29.5 and platelets 324,000 with normal differential , MCV was 93, creatinine 0.59 and iron studies showed iron saturation 23%, iron 89, TIBC 380. She was referred to GI for EGD and colonoscopy which was done on August 28, 2020 and both were unremarkable. Ms Palmer was started on oral iron and she continued her multivitamin. Follow-up labs on September 03, 2020 showed white blood count 4.6, hemoglobin 7.5, hematocrit 24.3, platelets 311,000 MCV 100 with a normal differential, bilirubin was 0.3 serum creatinine was 0.63. She was given 2 units of packed RBCs, which she tolerated well but there was no improvement in her generalized weakness and fatigue even after blood transfusion. She reported she has noticed some blood in her stool, thought that was due to hemorrhoids and now with darker stools due to oral iron but no fresh blood per rectum.. Denies any history of gastric bypass. She does have sleep apnea for which she uses CPAP since 2017. Patient presents today for follow-up. She continues to have fatigue. She states she never noticed a difference even with blood transfusions or Injectafer infusions. She wonders if her fatigue has to do more with stress since she cares for her who has Alzheimer's and liver disease. She denies fever, chills, night sweats. She has occasional shortness of breath with activity but denies cough or chest pain. No GI or problems she has chronic back pain secondary to multiple surgeries. She denies headache, dizziness, numbness or tingling. Review Of Symptoms: See above Past Medical History: Chronic back pain Congestive heart failure Depression Fibromyalgia Hiatal hernia Myocardial infarction Osteoarthritis Osteopenia Sleep apnea Type II diabetes Past Surgical History: Bilateral wrist surgery Carpal tunnel releasse Colonoscopy Left rotator cuff repair Lumbar fusion x 2 Right shoulder surgery Trigger finger release in 2007 Hysterectomy in 2005 Left knee arthroscopy in 2004 Allergies: HYDROcodone-Acetaminophen, Iodinated Contrast Media, and Penicillins. Medications: Alendronate Sodium 1 Tablet (of 70 mg) Oral daily Ambien 1 Tablet (of 5 mg) Oral at bedtime PRN amLODIPine Besylate 1 Tablet (of 5 mg) Oral daily ARIPiprazole 1 Tablet (of 2 mg) Oral daily Atorvastatin Calcium 1 Tablet (of 10 mg) Oral daily Carvedilol 1 Tablet (of 6.25 mg) Oral daily Cetirizine HCl 1 Tablet (of 10 mg) Oral daily clonazePAM Tablet Oral PRN Furosemide 1 Tablet (of 40 mg) Oral daily Gabapentin (300 mg) Capsule Oral t.i.d. hydrOXYzine Pamoate 1 Capsule (of 25 mg) Oral daily Isosorbide Mononitrate ER 1 Tablet (of 30 mg) Tablet SR 24 HR Oral daily Losartan Potassium 1 Tablet (of 50 mg) Oral daily Magnesium Oxide 1 Tablet (of 500 ) Oral daily Multivitamin 1 Tablet Oral daily Potassium Chloride ER 1 Tablet (of 20 meq) Tablet, controlled release Oral daily Spironolactone 1 Tablet (of 100 mg) Oral daily Tamsulosin HCl 1 Tablet (of 0.4 mg) Capsule Oral daily Venlafaxine HCl ER (225 mg) Capsule SR 24 HR Oral daily Family History: Ms. Palmer's mother at age 89: breast cancer, and kidney cancer. Ms. Palmer's father at age 70: liver cancer. Ms. Palmer has 3 brothers: 2 alive, 1 . Ms. Palmer's first brother's breast cancer. Another brother's prostate cancer. Another brother's prostate cancer. 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 Ms. Palmer has never smoked. She has no history of drinking. Ms. Palmer reports the following support systems: lives with spouse, significant other, family, or friends, lives in own house, and adequate transportation available for expected visits. Physical Examination: Performed on Dec 04, 2021 13:57: Height - 61.00 in, Weight - 207.2 lbs (LOW), BSA - 1.92 sq.m, BMI - 39.15 (HIGH), Temperature - 98.6 F, Pulse - 84 /min, Respiration - 20 /min, BP - 132/77 mm(hg), O2 Sat - 94 % (LOW), Pain - 7, and Fatigue - 9. Performance Status: 1 - No physically strenuous activity, but ambulatory and able to carry out light or sedentary work (e.g. office work, light house work). (ECOG) Constitutional Alert, cooperative, oriented. Mood and affect appropriate. Appears close to chronological age. Well nourished. Well developed. Head Normocephalic; no scars. Eyes Conjunctivae and sclerae are clear and without icterus. Pupils are reactive and equal. Respiratory Lungs are clear to auscultation without rhonchi or wheezing. Cardiovascular Regular rate and rhythm of heart without murmurs, gallops or rubs. Abdomen Non-tender, non-distended, no masses, ascites or hepatosplenomegaly. Good bowel sounds. No guarding or rebound tenderness. Extremities No visible deformities, no cyanosis, clubbing or edema. Pulses 3+ and equal bilaterally. Psychiatric Alert and oriented times three. Coherent speech. Verbalizes understanding of our discussions today. Laboratory: Test performed on Dec 04, 2021 12:40 Ferritin 118 ng/mL Iron 51 mcg/dL Iron Binding Capacity (TIBC) 375 mcg/dl % Iron Saturation 13.6 % UIBC 324 mcg/dL WBC 7.8 10 3/uL RBC 4.11 10 6/uL HGB 12.1 g/dL HCT 38.6 % MCV 93.9 fl MCH 29.4 pg MCHC 31.3 g/dL RDW 15.4 % Platelet Count 307 10 3/cmm MPV 9.2 fL Neutrophils 5.34 10 3/uL Lymphocytes 1.9 10 3/uL Monocytes 0.4 10 3/uL Eosinophils 0.1 10 3/uL Basophils 0.0 10 3/uL Neutrophil % 68.3 % Lymphocyte % 24.1 % Monocyte % 5.5 % Eosinophil % 1.7 % Basophils % 0.3 % NRBC % 0 % Impression: Normocytic normochromic anemia etiology unclear could be multifactorial including nutritional e.g. iron combined with B12 deficiency or functional iron deficiency or considering her age underlying myelodysplasia cannot be ruled out or anemia of chronic disease Osteoarthritis Sleep apnea Diabetes mellitus Congestive heart failure/myocardial infarct. Plan: Labs were discussed with patient WBC within normal limits iron studies with iron of 51% saturation 13.6 TIBC 375 and ferritin 118. 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 She said her brother who lives in [place] wants her to see physician at [place], she will discuss with her PMD regarding referred to wellness center at [place] for thorough evaluation. Although iron deficiency anemia has been corrected, patient continues to have problems with generalized fatigue and malaise. We will check copper and zinc level and have her return in 1 month to recheck lab. If her lab continues to remain stable we will decrease her return visits to every 3 months. Signed By: Irena Wilson N.Paul. <<Signature on File>>
[2021-12-08 19:52] LABS: Copper Level 127 mcg/dL (70-175); Zinc Level, Serum or Plasma 67 mcg/dL (60-130)
== END 2021-12-04 12:16 | disposition home or self-care (01) ==
PROVIDERS: PCP Internal Medicine; Visit Provider Nurse Practitioner Family
DX: D50.9 Iron deficiency anemia, unspecified (principal); E11.9 Type 2 diabetes mellitus without complications; I50.9 Heart failure, unspecified; I25.2 Old myocardial infarction; G47.33 Obstructive sleep apnea (adult) (pediatric); Z79.899 Other long term (current) drug therapy
CPT/HCPCS: 36415; 82525; 82728; 83540; 83550; 84630; 85025; 99214

== ENCOUNTER 2022-01-03 08:25 | Outpatient (CLI) | payer MEDICARE, OTHER, SELFPAY ==
[2022-01-03 09:02] LABS: Basophils % 0.3 %; Eosinophils # 0.1 10^3/uL (0.0-0.8); Eosinophils % 1.3 %; Hematocrit 33.4 % (37.0-47.0); Hemoglobin 10.5 g/dL (11.5-15.3); Lymphocytes # 1.3 10^3/uL (0.8-4.8); Lymphocytes % 14.7 %; Mean Corpuscular HGB Conc 31.4 g/dL (30.0-36.0); Mean Corpuscular Hemoglobin 29.5 pg (28.0-34.0); Mean Corpuscular Volume 93.8 fl (81-99); Monocytes # 0.6 10^3/uL (0.2-0.9); Monocytes % 6.4 %; Neutrophils # 6.75 10^3/uL (1.8-7.7); Nucleated Red Blood Cells % 0 %; Platelet Count 306 10^3/cmm (130-400); Red Blood Count 3.56 10^6/uL (4.1-5.3); White Blood Count 8.8 10^3/uL (4.0-10.0)
[2022-01-03 10:03] LABS: Ferritin 46 ng/mL (15-150); Iron 38 ug/dL (37-145); Percent Saturation 11.1 % (20-50); Total Iron Binding Capacity 341 mcg/dl; Unsaturated Iron Binding 303 ug/dL (112-347)
--- NOTE | 2022-01-03 13:00 | ONC FU_ITS ---
Dr. Becerril follow up note Patient: Makayla Palmer Unit #: [id number]: 1950 Dicatated By: Nena Becerril M.D.Date of Visit:Jan 03, 2022 Onc Med Follow-up/Prog Note History of Present Illness: Ms. Palmer is a 71-year-old female with history of anemia in her teen years. She reports that at that time, she was treated with iron supplements and after that she had no history of anemia even during during pregnancies, She reported that in 2016 she underwent back to back surgeries -for her lumbar fusion. The postop period was complicated by an open wound and at that time she required blood transfusion. She reports that she was doing well untill about February 2020 when she started experiencing generalized weakness and fatigue which was progressive. Her lab work-up done on August 15, 2020 showed white blood count was 6.1 hemoglobin 9.3 hematocrit 29.5 and platelets 324,000 with normal differential , MCV was 93, creatinine 0.59 and iron studies showed iron saturation 23%, iron 89, TIBC 380. She was referred to GI for EGD and colonoscopy which was done on August 28, 2020 and both were unremarkable. Ms Palmer was started on oral iron and she continued her multivitamin. Follow-up labs on September 03, 2020 showed white blood count 4.6, hemoglobin 7.5, hematocrit 24.3, platelets 311,000 MCV 100 with a normal differential, bilirubin was 0.3 serum creatinine was 0.63. She was given 2 units of packed RBCs, which she tolerated well but there was no improvement in her generalized weakness and fatigue even after blood transfusion. She reported she has noticed some blood in her stool, thought that was due to hemorrhoids and now with darker stools due to oral iron but no fresh blood per rectum.. Denies any history of gastric bypass. She does have sleep apnea for which she uses CPAP since 2017. Came for follow-up, denies any specific complaints, except generalized weakness and fatigue, dyspnea on exertion, no fever chills, no nausea or vomiting, no diarrhea or constipation, no melena hematochezia, no hemoptysis or hematemesis, no nosebleed or gum bleed Medications: Alendronate Sodium 1 Tablet (of 70 mg) Oral daily, Ambien 1 Tablet (of 5 mg) Oral at bedtime PRN, amLODIPine Besylate 1 Tablet (of 5 mg) Oral daily, ARIPiprazole 1 Tablet (of 2 mg) Oral daily, Atorvastatin Calcium 1 Tablet (of 10 mg) Oral daily, Carvedilol 1 Tablet (of 6.25 mg) Oral daily, Cetirizine HCl 1 Tablet (of 10 mg) Oral daily, clonazePAM Tablet Oral PRN, Furosemide 1 Tablet (of 40 mg) Oral daily, Gabapentin (300 mg) Capsule Oral t.i.d., HYDROcodone-Acetaminophen Tablet Oral q 6 hours PRN, hydrOXYzine Pamoate 1 Capsule (of 25 mg) Oral daily, Isosorbide Mononitrate ER 1 Tablet (of 30 mg) Tablet SR 24 HR Oral daily, Losartan Potassium 1 Tablet (of 50 mg) Oral daily, Magnesium Oxide 1 Tablet (of 500 ) Oral daily, Multivitamin 1 Tablet Oral daily, Potassium Chloride ER 1 Tablet (of 20 meq) Tablet, controlled release Oral daily, Spironolactone 1 Tablet (of 100 mg) Oral daily, Tamsulosin HCl 1 Tablet (of 0.4 mg) Capsule Oral daily, Venlafaxine HCl ER (225 mg) Capsule SR 24 HR Oral daily Allergies: HYDROcodone-Acetaminophen, Iodinated Contrast Media, and Penicillins. Review of Systems: Review of Systems is not available for this patient. Vital Signs: Performed on Jan 03, 2022 11:00 Height - 61.00 in Weight - 205.2 lbs (LOW) BSA - 1.91 sq.m BMI - 38.77 (HIGH) Temperature - 98.8 F Pulse - 78 /min Respiration - 20 /min BP - 121/71 mm(hg) O2 Sat - 98 % Pain - 7 Fatigue - 7 Performance Status: 1 - No physically strenuous activity, but ambulatory and able to carry out light or sedentary work (e.g. office work, light house work). (ECOG) Physical Examination: ENMT - No mouth sores no thrush no jaundice, Respiratory - Poor air entry otherwise clear, Cardiovascular - Regular rate and rhythm of heart, Abdomen - Soft, bowel sounds present, Extremities - No visible edema. Lab/Imaging: Test performed on Dec 04, 2021 12:40 Ferritin 118 ng/mL Iron 51 mcg/dL Iron Binding Capacity (TIBC) 375 mcg/dl % Iron Saturation 13.6 % UIBC 324 mcg/dL WBC 7.8 10 3/uL RBC 4.11 10 6/uL HGB 12.1 g/dL HCT 38.6 % MCV 93.9 fl MCH 29.4 pg MCHC 31.3 g/dL RDW 15.4 % Platelet Count 307 10 3/cmm MPV 9.2 fL Neutrophils 5.34 10 3/uL Lymphocytes 1.9 10 3/uL Monocytes 0.4 10 3/uL Eosinophils 0.1 10 3/uL Basophils 0.0 10 3/uL Neutrophil % 68.3 % Lymphocyte % 24.1 % Monocyte % 5.5 % Eosinophil % 1.7 % Basophils % 0.3 % NRBC % 0 % Impression: Normocytic normochromic anemia etiology unclear could be multifactorial including nutritional e.g. iron combined with B12 deficiency or functional iron deficiency or considering her age underlying myelodysplasia cannot be ruled out or anemia of chronic disease Osteoarthritis Sleep apnea Diabetes mellitus Congestive heart failure/myocardial infarct. Plan: Discussed with patient regarding her labs white blood count 8.8 hemoglobin 10.5 g compared to 12.1 g previously hematocrit 33.4 platelets 306 thousand iron studies shows iron saturation 11.1% ferritin 46 compared to 118 on 03/03/2022 38 TIBC 341, zinc level 67 copper 127 Clinically, patient is doing reasonably well now with progressive fatigue and generalized weakness, her follow-up CBC shows drop in her hemoglobin from 12.1 g on 03/03/2022 now 10.5 g with no obvious sign of gross bleeding, her iron studies shows further drop in her iron stores. Her copper level and zinc level within normal range, in the past her colonoscopy and EGD did not show any obvious source of bleeding patient also underwent capsule endoscopy which did not show any obvious source of bleeding, patient may have small bowel AVM bleeding off and on or iron malabsorption. At this point, will consider repeating Injectafer 750 mg IV weekly x2 and then repeat CBC and iron studies 1 month after second dose of Injectafer. Signed By: Nena Becerril M.D. <<Signature on File>>
== END 2022-01-03 08:26 | disposition home or self-care (01) ==
PROVIDERS: Internal Medicine Hematology & Oncology; PCP Internal Medicine; Visit Provider Nurse Practitioner Family
DX: D50.9 Iron deficiency anemia, unspecified (principal); G47.33 Obstructive sleep apnea (adult) (pediatric); I50.9 Heart failure, unspecified; E11.9 Type 2 diabetes mellitus without complications; M19.90 Unspecified osteoarthritis, unspecified site; I25.2 Old myocardial infarction; Z79.899 Other long term (current) drug therapy
CPT/HCPCS: 36415; 82728; 83540; 83550; 85025; 99214

== ENCOUNTER 2022-01-07 13:42 | Outpatient (CLI) | payer MEDICARE, OTHER, SELFPAY ==
[2022-01-07] MEDS: ferric carboxy (IVPB) 750 MG in sodium chloride 0.9% (100 ml) 100 ML 460 MG IV (14:04)
== END 2022-01-07 13:43 | disposition home or self-care (01) ==
LOC: ONCMED 13:43
PROVIDERS: PCP Internal Medicine; Visit Provider Internal Medicine Hematology & Oncology
DX: D50.9 Iron deficiency anemia, unspecified (principal); D51.9 Vitamin B12 deficiency anemia, unspecified; Z79.899 Other long term (current) drug therapy
CPT/HCPCS: 96365

== ENCOUNTER 2022-01-14 13:58 | Outpatient (CLI) | payer MEDICARE, OTHER, SELFPAY ==
[2022-01-14] MEDS: sodium chloride 0.9% (100 ml) 100 ML 200 ML (14:41)
[2022-01-14] MEDS: ferric carboxy (IVPB) 750 MG in sodium chloride 0.9% (100 ml) 100 ML 999 MG IV (14:41)
[2022-01-14] MEDS: sodium chloride 0.9% 250 ML 999 ML IV (15:30)
[2022-01-14] MEDS: diphenhydrAMINE 50 mg/mL SDV 1mL 25 MG IVP (15:43)
== END 2022-01-14 13:59 | disposition home or self-care (01) ==
LOC: ONCMED 13:59
PROVIDERS: PCP Internal Medicine; Visit Provider Internal Medicine Hematology & Oncology
DX: D50.9 Iron deficiency anemia, unspecified (principal)
CPT/HCPCS: 96365; 96375; J1200; J1439; J7050

== ENCOUNTER → 2022-02-05 15:04 | Outpatient (BNVA) | payer MEDICARE, OTHER, SELFPAY | PROVIDERS: PCP Internal Medicine; Visit Provider Nurse Practitioner | DX: F33.2 Major depressive disorder, recurrent severe without psychotic features (principal) | CPT/HCPCS: 99214 ==

== ENCOUNTER 2022-02-06 11:22 | Outpatient (CLI) | payer MEDICARE, OTHER, SELFPAY ==
[2022-02-06 12:05] LABS: Basophils % 0.3 %; Eosinophils # 0.1 10^3/uL (0.0-0.8); Eosinophils % 2.1 %; Hematocrit 38.6 % (37.0-47.0); Hemoglobin 12.2 g/dL (11.5-15.3); Lymphocytes # 1.1 10^3/uL (0.8-4.8); Mean Corpuscular HGB Conc 31.6 g/dL (30.0-36.0); Mean Corpuscular Hemoglobin 30.9 pg (28.0-34.0); Mean Corpuscular Volume 97.7 fl (81-99); Mean Platelet Volume 8.7 fL (7.4-10.4); Monocytes # 0.4 10^3/uL (0.2-0.9); Monocytes % 7.2 %; Neutrophils # 4.17 10^3/uL (1.8-7.7); Neutrophils % 71.2 %; Nucleated Red Blood Cells % 0 %; Platelet Count 221 10^3/cmm (130-400); Red Blood Count 3.95 10^6/uL (4.1-5.3); Red Cell Distribution Width 16.3 % (12.1-15.1); White Blood Count 5.9 10^3/uL (4.0-10.0)
[2022-02-06 12:23] LABS: Alanine Aminotransferase 22 U/L (0-33); Albumin Level 4.4 g/dL (3.5-5.2); Alkaline Phosphatase 82 IU/L (35-105); Anion Gap 14.8 (5-19); Aspartate Amino Transferase 23 U/L (0-32); Blood Urea Nitrogen 12 mg/dL (8-23); Calcium 9.4 mg/dL (8.5-10.5); Carbon Dioxide 24 mmol/L (22-29); Chloride 105 mmol/L (98-107); Globulin 2.2 g/dL (1.3-4.6); Glomerular Filtration Rate 99.1 mL/min (90-130); Glucose 94 mg/dL (65-115); Osmolality Calculated 290 mOsm/kg (285-295); Potassium 3.8 mmol/L (3.5-5.1); Sodium 140 mmol/L (136-145); Total Bilirubin 0.2 mg/dL (0.15-1.2); Total Protein 6.6 g/dL (6.6-8.7)
[2022-02-06 14:49] LABS: Ferritin 439 ng/mL (15-150); Iron 66 ug/dL (37-145); Percent Saturation 21.8 % (20-50); Total Iron Binding Capacity 302 mcg/dl; Unsaturated Iron Binding 236 ug/dL (112-347)
--- NOTE | 2022-02-09 16:30 | ONC FU_ITS ---
Irena Wilson Progress Note Patient: Makayla Palmer Unit #: [id number]: 1950 Dicatated By: Irena Wilson N.P.Date of Visit:Feb 06, 2022 Onc MED Follow-up/Prog Note Chief Complaint: Anemia History of Present Illness: Ms. Palmer is a 71-year-old female with history of anemia in her teen years. She reports that at that time, she was treated with iron supplements and after that she had no history of anemia even during during pregnancies, She reported that in 2016 she underwent back to back surgeries -for her lumbar fusion. The postop period was complicated by an open wound and at that time she required blood transfusion. She reports that she was doing well untill about February 2020 when she started experiencing generalized weakness and fatigue which was progressive. Her lab work-up done on August 15, 2020 showed white blood count was 6.1 hemoglobin 9.3 hematocrit 29.5 and platelets 324,000 with normal differential , MCV was 93, creatinine 0.59 and iron studies showed iron saturation 23%, iron 89, TIBC 380. She was referred to GI for EGD and colonoscopy which was done on August 28, 2020 and both were unremarkable. Ms Palmer was started on oral iron and she continued her multivitamin. Follow-up labs on September 03, 2020 showed white blood count 4.6, hemoglobin 7.5, hematocrit 24.3, platelets 311,000 MCV 100 with a normal differential, bilirubin was 0.3 serum creatinine was 0.63. She was given 2 units of packed RBCs, which she tolerated well but there was no improvement in her generalized weakness and fatigue even after blood transfusion. She reported she has noticed some blood in her stool, thought that was due to hemorrhoids and now with darker stools due to oral iron but no fresh blood per rectum.. Denies any history of gastric bypass. She does have sleep apnea for which she uses CPAP since 2017. Patient presents today for follow-up. She states that she is feeling okay other than chronic fatigue. Her appetite has been good. No fever, chills, night sweats. No sinus drainage or mouth sores. No shortness of breath, cough, chest pain. No nausea or vomiting. No diarrhea or constipation. No blood in stool. She has chronic back pain. No headaches or dizziness. Review Of Symptoms: See above. Past Medical History: Chronic back pain Congestive heart failure Depression Fibromyalgia Hiatal hernia Myocardial infarction Osteoarthritis Osteopenia Sleep apnea Type II diabetes Past Surgical History: Bilateral wrist surgery Carpal tunnel releasse Colonoscopy Left rotator cuff repair Lumbar fusion x 2 Right shoulder surgery Trigger finger release in 2007 Hysterectomy in 2006 Left knee arthroscopy in 2004 Allergies: HYDROcodone-Acetaminophen, Iodinated Contrast Media, and Penicillins. Medications: Alendronate Sodium 1 Tablet (of 70 mg) Oral daily Ambien 1 Tablet (of 5 mg) Oral at bedtime PRN amLODIPine Besylate 1 Tablet (of 5 mg) Oral daily ARIPiprazole 1 Tablet (of 2 mg) Oral daily Atorvastatin Calcium 1 Tablet (of 10 mg) Oral daily Carvedilol 1 Tablet (of 6.25 mg) Oral daily Cetirizine HCl 1 Tablet (of 10 mg) Oral daily clonazePAM Tablet Oral PRN Furosemide 1 Tablet (of 40 mg) Oral daily Gabapentin (300 mg) Capsule Oral t.i.d. HYDROcodone-Acetaminophen Tablet Oral q 6 hours PRN hydrOXYzine Pamoate 1 Capsule (of 25 mg) Oral daily Isosorbide Mononitrate ER 1 Tablet (of 30 mg) Tablet SR 24 HR Oral daily Losartan Potassium 1 Tablet (of 50 mg) Oral daily Magnesium Oxide 1 Tablet (of 500 ) Oral daily Multivitamin 1 Tablet Oral daily Potassium Chloride ER 1 Tablet (of 20 meq) Tablet, controlled release Oral daily Spironolactone 1 Tablet (of 100 mg) Oral daily Tamsulosin HCl 1 Tablet (of 0.4 mg) Capsule Oral daily Venlafaxine HCl ER (225 mg) Capsule SR 24 HR Oral daily Family History: Ms. Palmer's mother at age 89: breast cancer, and kidney cancer. Ms. Palmer's father at age 70: liver cancer. Ms. Palmer has 3 brothers: 2 alive, 1 . Ms. Palmer's first brother's breast cancer. Another brother's prostate cancer. Another brother's prostate cancer. 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 Ms. Palmer has never smoked. She has no history of drinking. Ms. Palmer reports the following support systems: lives with spouse, significant other, family, or friends, lives in own house, and adequate transportation available for expected visits. Physical Examination: Performed on Feb 06, 2022 13:54: Height - 61.00 in, Weight - 207.2 lbs (HIGH), BSA - 1.92 sq.m, BMI - 39.15 (HIGH), Temperature - 98.4 F, Pulse - 75 /min, Respiration - 20 /min, BP - 111/72 mm(hg), O2 Sat - 97 %, Pain - 5, and Fatigue - 7. Performance Status: 0 - Fully active, able to carry on all predisease activities without restrictions. (ECOG) Constitutional Alert, cooperative, oriented. Mood and affect appropriate. Appears close to chronological age. Well nourished. Well developed. Head Normocephalic; no scars. Respiratory Lungs are clear to auscultation without rhonchi or wheezing. Cardiovascular Regular rate and rhythm of heart without murmurs, gallops or rubs. Abdomen Non-tender, non-distended, no masses, ascites or hepatosplenomegaly. Good bowel sounds. No guarding or rebound tenderness. Musculoskeletal No tenderness or swelling, normal range of motion without obvious weakness. Psychiatric Alert and oriented times three. Coherent speech. Verbalizes understanding of our discussions today. Laboratory: Test performed on Feb 06, 2022 12:00 Ferritin 439 ng/mL Iron 66 mcg/dL Sodium 140 mmol/L Iron Binding Capacity (TIBC) 302 mcg/dl Potassium 3.8 mmol/L % Iron Saturation 21.8 % Chloride 105 mmol/L CO2 24 mmol/L UIBC 236 mcg/dL Anion Gap 14.8 BUN 12 mg/dL Creatinine 0.6 mg/dL Cr Clearance (Est) 131.30 mL/min eGFR 99.1 mL/min Glucose 94 mg/dL Osmolality - Calculated 290 mOsm/kg Calcium 9.4 mg/dL Protein, Total 6.6 g/dL Albumin 4.4 g/dL Globulin 2.2 g/dL Bilirubin, Total 0.2 mg/dL ALT (SGPT) 22 U/L AST (SGOT) 23 U/L Alkaline Phosphatase 82 IU/L WBC 5.9 10 3/uL RBC 3.95 10 6/uL HGB 12.2 g/dL HCT 38.6 % MCV 97.7 fl MCH 30.9 pg MCHC 31.6 g/dL RDW 16.3 % Platelet Count 221 10 3/cmm MPV 8.7 fL Neutrophils 4.17 10 3/uL Lymphocytes 1.1 10 3/uL Monocytes 0.4 10 3/uL Eosinophils 0.1 10 3/uL Basophils 0.0 10 3/uL Neutrophil % 71.2 % Lymphocyte % 19.0 % Monocyte % 7.2 % Eosinophil % 2.1 % Basophils % 0.3 % NRBC % 0 % Impression: Normocytic normochromic anemia etiology unclear could be multifactorial including nutritional e.g. iron combined with B12 deficiency or functional iron deficiency or considering her age underlying myelodysplasia cannot be ruled out or anemia of chronic disease Osteoarthritis Sleep apnea Diabetes mellitus Congestive heart failure/myocardial infarct. Plan: Labs were reviewed with patient WBC 5.9, hemoglobin 12.2, hematocrit 38.6, platelet count 221,000. Her CMP is within normal limits. Her iron saturation is 21.8% and her iron is 66. Patient received Injectafer x2. Her iron studies are within normal limits at this point. We will have her return in 2 months with CBC and iron studies. Signed By: Irena Wilson N.Paul. <<Signature on File>>
== END 2022-02-06 11:23 | disposition home or self-care (01) ==
PROVIDERS: Nurse Practitioner Family; PCP Internal Medicine; Visit Provider Internal Medicine Hematology & Oncology
DX: D64.9 Anemia, unspecified (principal); M19.90 Unspecified osteoarthritis, unspecified site; G47.30 Sleep apnea, unspecified; E11.9 Type 2 diabetes mellitus without complications; I50.9 Heart failure, unspecified; I25.2 Old myocardial infarction
CPT/HCPCS: 80053; 82728; 83540; 83550; 85025; 99214

== ENCOUNTER 2022-02-13 14:46 | Outpatient (CLI) | payer MEDICARE, OTHER, SELFPAY ==
--- NOTE | 2022-02-13 14:55 | MM_ITS ---
WS: [id number] BILATERAL 3D TOMOSYNTHESIS DIGITAL SCREENING MAMMOGRAPHY WITH CAD CLINICAL INFORMATION: SCREENING HISTORY: Screening mammogram. No current complaints. COMPARISON: February 05, 2021 TECHNIQUE: Bilateral CC and MLO views. FINDINGS: Scattered fibroglandular densities bilaterally. A few incidental punctate calcifications. Vascular ca lcification. No suspicious focal mass, asymmetry, calcifications, or architectural distortion. No deepthi dence of malignancy. MM/[place] [id number] IMPRESSION: BI-RADS: 2-Benign FOLLOW UP: 1 Year Follow-up Recommend return to annual screening mammography.
== END 2022-02-13 14:47 | disposition home or self-care (01) ==
LOC: RAD 14:52
PROVIDERS: PCP Internal Medicine; Visit Provider Internal Medicine
DX: Z12.31 Encounter for screening mammogram for malignant neoplasm of breast (principal)
CPT/HCPCS: 77063; 77067

== ENCOUNTER → 2022-03-05 12:51 | Outpatient (BNVA) | payer MEDICARE, OTHER, SELFPAY | PROVIDERS: PCP Internal Medicine; Visit Provider Nurse Practitioner | DX: F33.2 Major depressive disorder, recurrent severe without psychotic features (principal); Z63.6 Dependent relative needing care at home; Z59.6 Low income | CPT/HCPCS: 99214 ==

== ENCOUNTER → 2022-03-24 14:41 | Outpatient (BNVA) | payer MEDICARE, OTHER, SELFPAY | PROVIDERS: PCP Internal Medicine; Visit Provider Internal Medicine Cardiovascular Disease | DX: I50.32 Chronic diastolic (congestive) heart failure (principal); E78.00 Pure hypercholesterolemia, unspecified; G47.33 Obstructive sleep apnea (adult) (pediatric); K44.9 Diaphragmatic hernia without obstruction or gangrene; I27.20 Pulmonary hypertension, unspecified | CPT/HCPCS: 99214 ==

== ENCOUNTER → 2022-04-08 15:07 | Outpatient (BNVA) | payer MEDICARE, OTHER, SELFPAY | PROVIDERS: PCP Internal Medicine; Visit Provider Nurse Practitioner | DX: F33.2 Major depressive disorder, recurrent severe without psychotic features (principal); Z63.6 Dependent relative needing care at home; Z59.6 Low income | CPT/HCPCS: 99214 ==

== ENCOUNTER 2022-04-11 10:01 | Oncology outpatient (recurring) (ONCR) | payer MEDICARE, OTHER, SELFPAY ==
[2022-04-11 10:27] LABS: Basophils % 0.5 %; Eosinophils # 0.2 10^3/uL (0.0-0.8); Hematocrit 38.3 % (37.0-47.0); Hemoglobin 12.5 g/dL (11.5-15.3); Lymphocytes # 1.2 10^3/uL (0.8-4.8); Lymphocytes % 20.1 %; Mean Corpuscular HGB Conc 32.6 g/dL (30.0-36.0); Mean Corpuscular Hemoglobin 29.8 pg (28.0-34.0); Mean Corpuscular Volume 91.4 fl (81-99); Monocytes # 0.4 10^3/uL (0.2-0.9); Monocytes % 6.8 %; Neutrophils # 3.97 10^3/uL (1.8-7.7); Neutrophils % 69.3 %; Nucleated Red Blood Cells % 0 %; Platelet Count 218 10^3/cmm (130-400); Red Blood Count 4.19 10^6/uL (4.1-5.3); Red Cell Distribution Width 13.5 % (12.1-15.1); White Blood Count 5.7 10^3/uL (4.0-10.0)
[2022-04-11 10:53] LABS: Ferritin 99 ng/mL (15-150); Iron 59 ug/dL (37-145); Percent Saturation 20.4 % (20-50); Total Iron Binding Capacity 289 mcg/dl; Unsaturated Iron Binding 230 ug/dL (112-347)
== END 2022-04-17 23:59 | disposition home or self-care (01) ==
PROVIDERS: Nurse Practitioner Family; PCP Internal Medicine; Visit Provider Internal Medicine Hematology & Oncology
DX: D50.9 Iron deficiency anemia, unspecified (principal); F33.2 Major depressive disorder, recurrent severe without psychotic features
CPT/HCPCS: 36415; 82728; 83540; 83550; 85025; 99214

== ENCOUNTER → 2022-05-19 15:18 | Outpatient (BNVA) | payer MEDICARE, OTHER, SELFPAY | PROVIDERS: PCP Internal Medicine; Visit Provider Urology | DX: R33.9 Retention of urine, unspecified (principal); R39.11 Hesitancy of micturition; R39.15 Urgency of urination | CPT/HCPCS: 51798; 81003; 87086; 99213 ==

== ENCOUNTER 2022-06-13 09:57 | Emergency (ER) | payer MEDICARE, OTHER, SELFPAY ==
[2022-06-13 10:03] VITALS: BP 118/74; PULSE 72; RESP 14; TEMP 36.9; O2SAT 94; BMI 37.8
--- NOTE | 2022-06-13 10:04 | ECG_ITS ---
[facility] Test Date: 2022-06-13 Pat Name: Makayla Palmer Department: Room: Gender: Female It Project Lead: : 1950 Requested By: Brandon Royal Order Number: [id number] Agustín MD: Harris Reynolds M.D. Measurements Intervals [place] Rate: 72 P: 29 CT: 180 QRS: 16 QRSD: 88 T: 31 QT: 386 QTc: 423 Interpretive Statements SINUS RHYTHM POSSIBLE ANTERIOR MYOCARDIAL INFARCTION , OF INDETERMINATE AGE [30 ms Q WAVE IN V3/V4, OR R < 0.2 mV IN V4] INTERPRETATION BASED ON A DEFAULT AGE OF 40 YEARS Compared to ECG 09/07/2021 18:20:40 Myocardial infarct finding now present Electronically Signed On 06-14-2022 9:19:00 CDT by Harris Reynolds M.D. [id number]
--- NOTE | 2022-06-13 10:10 | ED_ITS ---
HPI - Chest Pain General: Chief Complaint: Chest Pain Stated Complaint: CHEST PAIN Time Seen by Provider: 06/13/22 10:10 History of Present Illness: Ms. Palmer is a 71-year-old lady with significant past medical history of CAD with previous IN, diastolic heart failure, pulmonary hypertension who presents to the ER for evaluation of chest pain. She reports onset of symptoms at approximately 9 AM this morning at rest. She endorses pressure in the middle of her chest with radiation on the left arm and neck. Intensity symptoms at worst was moderate. No other associated typical cardiac features. Symptoms did improve with aspirin and nitroglycerin. Denies frequent episodes in the past. Mild recent cough which is nonproductive. No other specific changes in health, exacerbating, or alleviating factors identified. Onset (ago): hour(s) Onset: during rest Pain location: substernal Pain radiation: left arm and neck Severity: moderate Quality: heaviness Review of Systems General: Reports: 10 or more systems reviewed and unremarkable except in HPI and below PFSH ED PFSH: Medical History Caregiver stress Chronic back pain Since 2016 and is undergoing evaluation by a spine surgeon-Dr. Mosquera Chronic hypertension Diagnosed in her 50s and follows up with Dr. Richard/Dr. Mason Congestive heart failure Medication followed by cardiology-Dr. Vasquez Diabetes mellitus Diagnosed in 50s and is diet controlled managed by PMD Diabetic peripheral neuropathy associated with type 2 diabetes mellitus Is on gabapentin managed by primary care provider Fibromyalgia Diagnosed in her 40s-not on any medication and follows with PMD High cholesterol Diagnosed in her 50s managed by PMD Iron deficiency anemia Low income Major depressive disorder, recurrent severe without psychotic features No pertinent past medical history Denies diabetes, asthma, seizures, DVT/PE PCP: Dr. Jarvis Osteoarthritis Since her 50s and has mainly hip pain and follows with Dr. 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 Carlisle S/P bladder repair 2005---reports mesh was placed for incontinence by Dr. Butler at [facility] [place] S/P carpal tunnel release Bilateral Right-2011, left-2020 S/P hysterectomy 2005---vaginal hysterectomy with bilateral salpingo-oophorectomy by Dr. Butler at [facility] [place] for bleeding and prolapse S/P left knee arthroscopy 2004 S/P lumbar fusion X 2 05/29/16 01/15/17 S/P shoulder surgery Bilateral S/P trigger finger release Bilateral Right-2007 Left-2020 Status post colonoscopy (08/28/20) repeat in 10 years Family History Father , at age 65 Hyperlipidemia Cancer liver and prostate Mother Breast cancer diagnosed at age 65 Hyperlipidemia Hypertension Brother Diabetes Grandmother Stroke maternal Denies family history of Colon cancer Ovarian cancer Heart disease Uterine cancer Thyroid condition Social History Smoking and tobacco status: never smoked Alcohol intake: never Marital status: Current occupational status: retired History of recent travel: No Physical Exam Const: COMMON NORMALS: alert GENERAL APPEARANCE: cooperative and well developed HENMT: COMMON NORMALS: normocephalic and atraumatic HEAD & SCALP: normocephalic and atraumatic Eye: COMMON NORMALS: conjunctivae normal CONJUNCTIVA: Yes conjunctivae normal SCLERA: sclerae normal Neck/C-Spine: COMMON NORMALS: supple GENERAL: Yes trachea midline Resp: COMMON NORMALS: normal respiratory effort and clear to auscultation bilaterally EFFORT & INSPECTION: Yes able to speak in complete sentences AUSCULTATION: clear to auscultation bilaterally Cardio: COMMON NORMALS: regular rate and regular rhythm RATE: regular rate RHYTHM: regular rhythm GI: COMMON NORMALS: Soft to palpation PALPATION: Yes Soft to palpation and No Tenderness to palpation present (GI) Extremity: GENERAL: Yes normal exam except as noted and No edema Neuro: COMMON NORMALS: moves all extremities SENSORIUM/ORIENTATION: Yes alert and No Orientation impaired Psych: COMMON NORMALS: mental status grossly normal and Normal thought process present THOUGHT PROCESS: Normal thought process present Course ED course: - Patient was seen and evaluated by me at bedside - Patient placed on cardiac monitors, IV access obtained - Initial evaluation notable for exam as above. Physical exam with palpation and maneuvers do not reproduce/worsen pain. - Labs and xrays personally interpreted by me. EKG notable for sinus rhythm with nonspecific ST segment abnormalities, no STEMI. -Aspirin given - Labs notable for no leukocytosis, normal hemoglobin. Metabolic panel without acute derangement to explain symptoms. Delta troponin is negative. - Imaging notable for no lobar consolidation or pneumothorax - Upon serial reexamination after treatment the patient was similar - Based on patient history, evaluation, and testing as interpreted the most likely cause of the patient's condition is chest pain - The results of ED evaluation were discussed with the patient including possible disposition options. I discussed risk stratification by heart score and estimated risk of major adverse cardiac events. The patient wishes to proceed with outpatient management. I discussed prescriptions and/or symptomatic cares (if applicable) including appropriate and responsible use, followup plan, and return precautions. The patient verbalized understanding and felt safe for discharge. - Patient discharged in satisfactory condition. Note: Click bubbles or prepopulated tom in note writing are used for assistance with data collection and billing and are inherently more limited than narrative and other text portions of this note. Please use narrative for additional clinical history and defer to narrative/free test for any case of contradictory information. If information appears in only free text or click bubble it should be considered present or absent as reported. Please contact note junior copywriter for clarifications of clinical information or contradictory information. MDM is a brief summary, contradictory or erroneous seeming information should be clarified and full note should be reviewed. Vital Signs: Vital signs: Vital Signs Temperature 98.5 F 06/13/22 10:03 Pulse Rate 79 06/13/22 13:30 Respiratory Rate 14 06/13/22 13:30 Blood Pressure 122/66 06/13/22 13:30 Pulse Oximetry 95 06/13/22 13:30 Oxygen Delivery Me thod 06/13/22 13:30 MDM - Chest Pain Medical Decision Making 71-year-old lady presenting with chest pain. ED evaluation without obvious cause. Offered admission which the patient declined in favor of outpatient further testing. Strict return precautions given. Medical Records I reviewed the patient's medical records. Lab Data I reviewed the patient's lab results. : 06/13/22 10:30 06/13/22 10:30 Radiology Impressions Chest X-Ray 06/13/22 10:11 Impression: Atherosclerosis and hiatal hernia. Laboratory Results WBC 6.2 10^3/uL (4.0-10.0) 06/13/22 10:30 RBC 4.09 10^6/uL (4.1-5.3) L 06/13/22 10:30 Hgb 11.8 g/dL (11.5-15.3) 06/13/22 10:30 Hct 37.2 % (37.0-47.0) 06/13/22 10:30 MCV 91.0 fl (81-99) 06/13/22 10:30 MCH 28.9 pg (28.0-34.0) 06/13/22 10:30 MCHC 31.7 g/dL (30.0-36.0) 06/13/22 10:30 RDW 14.6 % (12.1-15.1) 06/13/22 10:30 Plt Count 216 10^3/cmm (130-400) 06/13/22 10:30 MPV 8.8 fL (7.4-10.4) 06/13/22 10:30 Neut % (Auto) 73.9 % 06/13/22 10:30 Lymph % (Auto) 15.7 % 06/13/22 10:30 [place] % (Auto) 7.5 % 06/13/22 10:30 Eos % (Auto) 2.4 % 06/13/22 10:30 Baso % (Auto) 0.3 % 06/13/22 10:30 Neut # (Auto) 4.60 10^3/uL (1.8-7.7) 06/13/22 10:30 Lymph # (Auto) 1.0 10^3/uL (0.8-4.8) 06/13/22 10:30 [place] # (Auto) 0.5 10^3/uL (0.2-0.9) 06/13/22 10:30 Eos # (Auto) 0.2 10^3/uL (0.0-0.8) 06/13/22 10:30 Baso # (Auto) 0.0 10^3/uL (0.0-0.1) 06/13/22 10:30 Nucleated RBC % (auto) 0 % 06/13/22 10:30 Nucleated RBCs # 0.0 /100WBC 06/13/22 10:30 Sodium 139 mmol/L (136-145) 06/13/22 10:30 Potassium 4.3 mmol/L (3.5-5.1) 06/13/22 10:30 Chloride 102 mmol/L (98-107) 06/13/22 10:30 Carbon Dioxide 25 mmol/L (22-29) 06/13/22 10:30 Anion Gap 16.3 (5-19) 06/13/22 10:30 BUN 10 mg/dL (8-23) 06/13/22 10:30 Creatinine 0.7 mg/dL (0.5-0.9) 06/13/22 10:30 GFR Calculation 83.0 mL/min (90-130) L 06/13/22 10:30 Glucose 96 mg/dL (65-115) 06/13/22 10:30 Calculated Osmolality 287 mOsm/kg (285-295) 06/13/22 10:30 Calcium 8.9 mg/dL (8.5-10.5) 06/13/22 10:30 Total Bilirubin 0.3 mg/dL (0.15-1.2) 06/13/22 10:30 AST 21 U/L (0-32) 06/13/22 10:30 ALT 19 U/L (0-33) 06/13/22 10:30 Alkaline Phosphatase 75 U/L (35-105) 06/13/22 10:30 Troponin T Baseline 8 ng/L (0-10) 06/13/22 10:30 Troponin T 120 Minute 6.64 ng/L (0-10) 06/13/22 12:28 Delta Troponin T -1.36 ABS# (0-10) L 06/13/22 12:28 NT-Pro-B Natriuret Pep 121 pg/mL (0-125) 06/13/22 10:30 Total Protein 7.1 g/dL (6.6-8.7) 06/13/22 10:30 Albumin 4.0 g/dL (3.5-5.2) 06/13/22 10:30 Globulin 3.1 g/dL (1.3-4.6) 06/13/22 10:30 Lipase 19 U/L (13-60) 06/13/22 10:30 SARS-CoV-2 Ag (Rapid) Negative (Negative) 06/13/22 11:25 Discharge Plan Discharge Patient Disposition: Home Clinical Impression: Chest pain Condition: Stable Prescriptions: No Action gabapentin 100 mg capsule 300 mg PO TID multivitamin Tablet 1 tab PO DAILY hydroxyzine pamoate 25 mg capsule 25 mg PO Q8H PRN (Reason: Itching) hydrocodone-acetaminophen 10-325 mg tablet 1 tab PO QID PRN (Reason: Pain, Mild) amlodipine 5 mg tablet 5 mg PO DAILY Qty: 90 3RF isosorbide mononitrate 30 mg tablet extended release 24 hr 15 mg PO BID Qty: 90 3RF magnesium oxide 400 mg magnesium capsule 400 mg PO DAILY Qty: 90 3RF potassium chloride 10 mEq capsule, extended release 20 meq PO DAILY Qty: 180 3RF nystatin 100,000 unit/gram powder 1 applic topical BID PRN (Reason: Yeast dermatitis) Qty: 15 0RF Rx Instructions: Apply to affected area sulfamethoxazole-trimethoprim 800-160 mg tablet 1 tab PO BID Qty: 30 2RF venlafaxine [Effexor XR] 150 mg capsule,extended release 24hr 150 mg PO DAILY Qty: 30 2RF venlafaxine [Effexor XR] 75 mg capsule,extended release 24hr 75 mg PO DAILY Qty: 30 2RF aripiprazole [Abilify] 10 mg tablet 10 mg PO DAILY Qty: 30 1RF clonazepam 0.5 mg tablet 0.5 mg PO DAILY PRN (Reason: anxiety) Qty: 30 1RF Lasix 20 mg tablet 40 mg PO QAM Qty: 180 3RF carvedilol 6.25 mg tablet 6.25 mg PO BID Qty: 180 3RF losartan 50 mg Tablet 25 mg PO DAILY Victoza 2-Aime 0.6 mg/0.1 mL (18 mg/3 mL) Pen Injector 1.2 mg SUBCUT DAILY Lipitor 10 mg tablet 10 mg PO BEDTIME tamsulosin 0.4 mg capsule 0.4 mg PO BID carvedilol 12.5 mg tablet 12.5 mg PO BID Ambien CR 6.25 mg tablet,ext release multiphase 6.25 mg PO BEDTIME Discharge Orders: Discharge ED (Routine); Ordered 06/13/22 Ordered By: Brandon Royal Referrals: Shellie Jarvis MD [Primary Care Provider] - Discharge Diet: Usual diet Discharge Activity: Increase activity as tolerated Patient Instructions: Chest Pain (ED) Activity Restrictions/Additional Instructions: Thank you for visiting the emergency department. You were seen and evaluated for chest pain. The exact cause of your symptoms is unclear though as discussed does require further evaluation. You are at least moderate risk by heart score which increases your chances of major adverse cardiac events in the next 45 days. I will message case management for outpatient stress test and echocardiogram. Please also follow-up with cardiology. Please return to the emergency department for recurrence of symptoms or anything else that you are concerned about a feel needs emergency department evaluation. Coding Level of Care Code ED Heat Plant Specialist for Keshav Fwd Exam Comprehensive
--- NOTE | 2022-06-13 10:11 | XR_ITS ---
WS: [id number] Portable AP upright chest, 06/13/2022 Clinical Data: cp Comparison: Portable chest, 09/07/2021. Findings: No nodules, masses or effusions are seen. The heart is normal. The pulmonary vascularity is not increased. No pneumonia or pneumothorax is seen. The aortic arch and descending thoracic aorta s how tortuosity. There is a hiatal hernia behind the heart. The patient has had a posterior lumbar fus ion. There are monitor leads on the chest wall. XR/XR chest 1V portable [id number] Impression: Atherosclerosis and hiatal hernia.
[2022-06-13 10:35] LABS: Basophils % 0.3 %; Eosinophils # 0.2 10^3/uL (0.0-0.8); Eosinophils % 2.4 %; Hematocrit 37.2 % (37.0-47.0); Hemoglobin 11.8 g/dL (11.5-15.3); Lymphocytes % 15.7 %; Mean Corpuscular HGB Conc 31.7 g/dL (30.0-36.0); Mean Corpuscular Hemoglobin 28.9 pg (28.0-34.0); Mean Platelet Volume 8.8 fL (7.4-10.4); Monocytes # 0.5 10^3/uL (0.2-0.9); Monocytes % 7.5 %; Neutrophils % 73.9 %; Nucleated Red Blood Cells % 0 %; Platelet Count 216 10^3/cmm (130-400); Red Blood Count 4.09 10^6/uL (4.1-5.3); Red Cell Distribution Width 14.6 % (12.1-15.1); White Blood Count 6.2 10^3/uL (4.0-10.0)
[2022-06-13 11:03] LABS: Troponin(5th) Baseline 8 ng/L (0-10)
[2022-06-13 11:10] LABS: Alanine Aminotransferase 19 U/L (0-33); Alkaline Phosphatase 75 U/L (35-105); Anion Gap 16.3 (5-19); Aspartate Amino Transferase 21 U/L (0-32); Blood Urea Nitrogen 10 mg/dL (8-23); Calcium 8.9 mg/dL (8.5-10.5); Carbon Dioxide 25 mmol/L (22-29); Chloride 102 mmol/L (98-107); Globulin 3.1 g/dL (1.3-4.6); Glucose 96 mg/dL (65-115); Lipase 19 U/L (13-60); NT Pro B Type Natriuretic Pept 121 pg/mL (0-125); Osmolality Calculated 287 mOsm/kg (285-295); Potassium 4.3 mmol/L (3.5-5.1); Sodium 139 mmol/L (136-145); Total Bilirubin 0.3 mg/dL (0.15-1.2); Total Protein 7.1 g/dL (6.6-8.7)
--- NOTE | 2022-06-13 11:24 | PC.PHAR ---
PT TAKES CARVEDILOL, PT NOT SURE HOW MANY MG- EXT MED SHOWS LAST FILLED 05/31/22 90DS 6.25MG BID AND 06/06/22 30DS 12.5MG BID- PT ALSO STS SHE TAKES LOSARTAN 25MG ONCE DAILY LAST FILLED 09/03/21 50MG HALF TAB DAILY. CALLED SHRUTHI TO VERIFY LAST FILLED
[2022-06-13 12:11] LABS: SARS Covid-2 Antigen Negative (Negative)
--- NOTE | 2022-06-13 12:11 | ECG_ITS ---
[facility] Test Date: 2022-06-13 Pat Name: Makayla Palmer Department: Room: Gender: Female Drop Press Hand: : 1950 Requested By: Brandon Royal Order Number: [id number] Agustín MD: Harris Reynolds M.D. Measurements Intervals [place] Rate: 70 P: 37 AL: 176 QRS: 9 QRSD: 88 T: 31 QT: 394 QTc: 426 Interpretive Statements SINUS RHYTHM POSSIBLE ANTERIOR MYOCARDIAL INFARCTION , OF INDETERMINATE AGE [30 ms Q WAVE IN V3/V4, OR R < 0.2 mV IN V4] Compared to ECG 06/13/2022 10:04:02 No significant changes Electronically Signed On 06-14-2022 9:27:35 CDT by Harris Reynolds M.D. [id number]
[2022-06-13 12:33] VITALS: BP 125/79; PULSE 72; RESP 14; O2SAT 92
[2022-06-13 13:01] LABS: Troponin 5 2HR 6.64 ng/L (0-10)
[2022-06-13 13:12] LABS: Troponin 5 2HR Delta -1.36 ABS# (0-10)
[2022-06-13 13:30] VITALS: BP 122/66; PULSE 79; RESP 14; O2SAT 95
--- NOTE | 2022-06-17 14:25 | DCPLANNER ---
Addendum entered by Jillian Paz 10/28/22 13:16: stress test was cancelled Original Note: technical training manager had message to schedule an outpatient stress test for patient. technical training manager faxed signed order to centralized scheduling, who will call patient with appointment information.
== END 2022-06-13 13:40 | disposition home or self-care (01) ==
PROVIDERS: Emergency Provider Emergency Medicine; PCP Internal Medicine
DX: R07.9 Chest pain, unspecified (principal); I11.0 Hypertensive heart disease with heart failure; I50.9 Heart failure, unspecified; E11.9 Type 2 diabetes mellitus without complications
CPT/HCPCS: 71045; 80053; 83690; 83880; 84484; 85025; 87426; 93005; 99285

== ENCOUNTER 2022-06-19 06:00 | Outpatient (RCR) | payer MEDICARE, OTHER, SELFPAY | END 2022-07-18 23:59 | disposition home or self-care (01) | LOC: SPT 06:00 | PROVIDERS: PCP Internal Medicine; Visit Provider Nurse Practitioner Family | DX: R29.898 Other symptoms and signs involving the musculoskeletal system (principal); M54.50 Low back pain, unspecified | CPT/HCPCS: 97110; 97161 ==

== ENCOUNTER 2022-06-25 12:51 | Outpatient (RCR) | payer MEDICARE, OTHER, SELFPAY | END 2022-07-18 23:59 | disposition home or self-care (01) | LOC: SPT 12:51 | PROVIDERS: PCP Internal Medicine; Visit Provider Internal Medicine | DX: R42 Dizziness and giddiness (principal); H81.10 Benign paroxysmal vertigo, unspecified ear | CPT/HCPCS: 95992; 97161 ==

== ENCOUNTER → 2022-07-11 10:59 | Outpatient (BNVA) | payer MEDICARE, OTHER, SELFPAY | PROVIDERS: PCP Internal Medicine; Visit Provider Internal Medicine Cardiovascular Disease | DX: I11.0 Hypertensive heart disease with heart failure (principal); I50.32 Chronic diastolic (congestive) heart failure; I27.20 Pulmonary hypertension, unspecified; E78.00 Pure hypercholesterolemia, unspecified; Z87.891 Personal history of nicotine dependence | CPT/HCPCS: 99214 ==

== ENCOUNTER → 2022-07-17 11:55 | Day surgery (SDC) | payer MEDICARE, OTHER, SELFPAY ==
[2022-07-17] MEDS: acetaminophen 325 mg Tablet 650 MG PO (12:14)
[2022-07-17] MEDS: diphenhydrAMINE 25 mg Capsule PO (12:15)
[2022-07-17 12:51] VITALS: BP 87/64; PULSE 86; RESP 18; TEMP 36.9; O2SAT 93
[2022-07-17] MEDS: ferric carboxy (IVPB) 750 MG in sodium chloride 0.9% (100 ml) 100 ML 50 MG IV (13:02)
== END ==
PROVIDERS: PCP Internal Medicine; Visit Provider Internal Medicine
DX: D50.9 Iron deficiency anemia, unspecified (principal)
CPT/HCPCS: 96365; J1439

== ENCOUNTER 2022-07-19 06:00 | Outpatient (RCR) | payer MEDICARE, OTHER, SELFPAY | END 2022-08-18 23:59 | disposition home or self-care (01) | LOC: SPT 06:00 | PROVIDERS: PCP Internal Medicine; Visit Provider Nurse Practitioner Family | DX: M54.89 Other dorsalgia (principal); G89.29 Other chronic pain | CPT/HCPCS: 97110; 97530 ==

== ENCOUNTER → 2022-07-24 11:49 | Day surgery (SDC) | payer MEDICARE, OTHER, SELFPAY ==
[2022-07-24] MEDS: acetaminophen 325 mg Tablet 650 MG PO (11:57)
[2022-07-24] MEDS: diphenhydrAMINE 25 mg Capsule PO (11:58)
[2022-07-24 12:07] VITALS: BP 118/64; PULSE 84; RESP 18; TEMP 36.9; O2SAT 96
[2022-07-24] MEDS: ferric carboxy (IVPB) 750 MG in sodium chloride 0.9% (100 ml) 100 ML 300 MG IV (12:11)
== END ==
PROVIDERS: PCP Internal Medicine; Visit Provider Internal Medicine
DX: D50.9 Iron deficiency anemia, unspecified (principal)
CPT/HCPCS: 96365; J1439

== ENCOUNTER → 2022-10-16 15:14 | Outpatient (BNVA) | payer MEDICARE, OTHER, SELFPAY | PROVIDERS: PCP Internal Medicine; Visit Provider Internal Medicine Cardiovascular Disease | DX: I11.0 Hypertensive heart disease with heart failure (principal); I50.32 Chronic diastolic (congestive) heart failure; Z87.891 Personal history of nicotine dependence; I27.20 Pulmonary hypertension, unspecified | CPT/HCPCS: 99214 ==

== ENCOUNTER 2022-11-03 13:25 | Outpatient (CLI) | payer MEDICARE, OTHER, SELFPAY ==
--- NOTE | 2022-11-03 13:45 | XR_ITS ---
WS: [id number] Cervical spine, 5 views including lateral in neutral, flexion and extension positions, 11/03/2022 Clinical Data: CERVICALGIA Comparison: None. Findings: No compression fractures are seen. There is degenerative disc narrowing at C5-C6 and C6-C7 with accompanying osteophyte formation. There is no prevertebral soft tissue swelling. The odontoid i s unremarkable. On flexion and extension there is no limitation of motion or subluxation. The lung ap ices are normal. There is minimal calcification at the left carotid bifurcation. There is an orthopedic anchor in the left shoulder. XR/XR cervical spine 4-5V 03643 Impression: 1. Degenerative disc narrowing at C5-C6 and C6-C7 with osteophytes. 2. Negative for limitation of motion or subluxation on flexion or extension.
--- NOTE | 2022-11-03 13:45 | XR_ITS ---
WS: [id number] Right shoulder, 2 views, 11/03/2022 Clinical Data: SHOULDER PAIN Comparison: None. Findings: No fractures or dislocations are seen. The AC joint is normal. The adjacent right clavicle, right sca pula and ribs are normal. The soft tissues are unremarkable. XR/XR shoulder RT min 2V* [id number] Impression: Negative right shoulder.
== END 2022-11-03 13:26 | disposition home or self-care (01) ==
LOC: RAD 13:31
PROVIDERS: PCP Internal Medicine; Visit Provider Internal Medicine
DX: M25.511 Pain in right shoulder (principal); M54.2 Cervicalgia; M48.02 Spinal stenosis, cervical region; M25.78 Osteophyte, vertebrae
CPT/HCPCS: 72050; 73030

== ENCOUNTER 2023-01-07 09:07 | Outpatient (CLI) | payer MEDICARE, OTHER, SELFPAY ==
--- NOTE | 2023-01-07 09:43 | MR_ITS ---
WS: [id number] MRI CERVICAL SPINE NONCONTRAST TECHNIQUE: Sagittal T1, T2 and STIR imaging. Axial T2, gradient, and fiesta imaging. CLINICAL INFORMATION: DEGENERATION OF CERVICAL INTERVERTEBRAL DISC COMPARISON: None. FINDINGS: Straightening of the normal cervical lordosis. Moderate spondylitic changes cervical spine. Disc oste ophyte complexes at C5-C6 and C6-C7 with indentation on the cervical cord and moderate central canal stenosis . Cord signal remains normal. C2-C3: Normal. C3-C4: Mild disc osteophytic ridging. Mild facet arthropathy. Spinal canal and foramen are patent. C4-C5: Mild disc osteophytic ridging. Mild LEFT greater than RIGHT bony foraminal narrowing. Mild fac et arthropathy. Spinal canal is patent. C5-C6: Disc osteophyte complex with indentation the cervical cord. Moderate central canal stenosis. M oderate LEFT greater than RIGHT bony foraminal narrowing. Mild facet arthropathy with uncovertebral j oint hypertrophy. C6-C7: Disc osteophyte complex with endplate ridging. Indentation on the cervical cord. Moderate cent ral canal stenosis. Moderate LEFT and mild to moderate RIGHT bony foraminal narrowing. Mild facet art hropathy. C7-T1: Mild disc osteophytic ridging. Mild RIGHT and no significant LEFT foraminal narrowing. Spinal canal is patent. T1-T2: Central disc protrusion with indentation on the thoracic cord with mild to moderate central ca nal stenosis. Moderate LEFT and mild RIGHT bony foraminal narrowing. Partially visualized RIGHT lower lobe thyroid nodule measuring 2.6 cm. IMPRESSION: 1. Straightening of the normal cervical lordosis. 2. Disc osteophyte complex with indentation and flattening of the cervical cord at C5-C6 and C6-C7 w ith moderate central canal stenosis. 3. Central disc protrusion T1-T2 with indentation on the thoracic cord and mild to moderate central canal stenosis. 4. Cord signal remains normal. 5. Multilevel moderate bony foraminal narrowing worse at LEFT C5-C6, LEFT C6-C7, and LEFT T1-T2
== END 2023-01-07 09:08 | disposition home or self-care (01) ==
PROVIDERS: PCP Internal Medicine; Visit Provider Internal Medicine
DX: M50.30 Other cervical disc degeneration, unspecified cervical region (principal); M25.78 Osteophyte, vertebrae; M48.02 Spinal stenosis, cervical region; M51.24 Other intervertebral disc displacement, thoracic region
CPT/HCPCS: 72141

== ENCOUNTER 2023-02-19 10:53 | Outpatient (CLI) | payer MEDICARE, OTHER, SELFPAY ==
--- NOTE | 2023-02-19 11:06 | MM_ITS ---
WS: [email or web address] Bilateral screening 3D tomosynthesis digital mammogram, 02/19/2023 Clinical Data: SCREENING Comparison: Or 07/06/2022, 02/05/2021, 11/09/2019, 07/14/2018, 06/22/2018, 04/09/2017, 03/03/2017, 02/18/2016, 02/14/2015, 01/31/2014, 01/23/2014, 12/02/2012, 10/29/2011, 10/22/2010, 10/18/2009, 10/17/2008, 09/15/2007, 1 11/14/2005. Findings: The breast parenchymal pattern shows fibroglandular tissue. No spiculated masses or clustered calcifi cations are seen. There are no secondary signs of carcinoma. MM/[place] [id number] Impression: 1. Negative bilateral mammogram unchanged. 2. Recommend annual screening mammograms. BIRADS: 1-Negative FOLLOW UP: 1 Year Follow-up The CAD sample checker was used.
== END 2023-02-19 10:54 | disposition home or self-care (01) ==
PROVIDERS: PCP Internal Medicine; Visit Provider Internal Medicine
DX: Z12.31 Encounter for screening mammogram for malignant neoplasm of breast (principal)
CPT/HCPCS: 77063; 77067

== ENCOUNTER → 2023-04-06 10:03 | Outpatient (BNVA) | payer MEDICARE, OTHER, SELFPAY | PROVIDERS: PCP Internal Medicine; Visit Provider Nurse Practitioner Family | DX: L81.4 Other melanin hyperpigmentation (principal); D22.5 Melanocytic nevi of trunk; Z71.89 Other specified counseling; L85.3 Xerosis cutis; L21.8 Other seborrheic dermatitis; L82.1 Other seborrheic keratosis; L82.0 Inflamed seborrheic keratosis; L30.0 Nummular dermatitis | CPT/HCPCS: 17110; 99214 ==

== ENCOUNTER 2023-04-27 08:48 | Outpatient (CLI) | payer MEDICARE, OTHER, SELFPAY ==
[2023-04-27 08:54] VITALS: BMI 36.1
--- NOTE | 2023-04-27 09:23 | NMCV_ITS ---
NM katharine perf SPECT r/s* [id number] Makayla Palmer Age: 72 Gender: F : 1950 Exam Date: 04/27/2023 09:23 Ordering Phys: Shellie Jarvis MD Technologist: VJ Lott Exam Location: [facility] Indications: CHEST PAIN STRESS TEST Please see separate stress test report in [facility] for full findings IMAGE PROTOCOL Rest/Stress 1 Lexiscan Day Radiopharmaceutical Dose (mCi) Administration Site Administered by Rest: Tc-99m 10.8 IV VJ Mandujano Sestamibi Stress:Tc-99m 32.4 IV VJ Mandujano Sestamibi Rest: 27-Apr-2023 60 Discovery 630 Stress: 27-Apr-2023 30 Discovery 630 0.4mg Lexiscan. Supine position only as patient was unable to lay prone. SPECT RESULTS Technical Quality: Excellent Raw Data Analysis: Normal Image Corrections: No attenuation or motion correction applied Summed Stress Score: 2 Summed Rest Score: 0 Summed Difference Score: 2 PERFUSION FINDINGS Small sized perfusion abnormality of mild severity of mid anteroseptal and apical garcía on stress images. FUNCTIONAL RESULTS (calculated via Gated SPECT) Stress Image LV EF (%): 85 Stress EDV (mL):74 TID: 1.14 Stress ESV (mL):11 FUNCTIONAL FINDINGS: The left ventricle is normal in size. Transient Ischemia Dilatation of 1.1. The left ventricular ejection fraction is normal with a value of 85%. There is hyperdynamic left ventricular global systolic function. IMPRESSIONS 1. Small sized perfusion abnormality of mild severity of mid anteroseptal and apical garcía. This may represent small area of ischemia in left anterior descending artery territory. 2. Overall left ventricular systolic function is normal without regional wall motion abnormalities, LVEF=85%. 3. No EKG changes with lexiscan infusion. Refer to separate report for details. Hetal Mason MD (Electronically Signed) Final Date: 30 April 2023 12:26 S
--- NOTE | 2023-04-27 09:23 | ECG_ITS ---
[facility] Test Date: 2023-04-27 Pat Name: Makayla Palmer Department: Room: Gender: Female Channel Director: : 1950 Requested By: Shellie Farah Order Number: [id number] Agustín MD: Hetal Mason M.D. Interpretive Statements NAME OF STUDY: LEXISCAN SESTAMIBI STRESS TEST INDICATION: Chest Pain PROCEDURE: At the baseline, the blood pressure was 118/87 mm Hg with a heart rate of 73 bpm. The electrocardiogram showed sinus rhythm, normal axis a with no ST-T wave changes. The Lexiscan was infused over a period of 20 seconds. A total of 0.4 milligrams of Lexiscan was infused. The stress phase was continued for a total of 5 minutes. Heart rate at the end of the stress phase was 83 bpm with a blood pressure of 135/80 mm Hg. The EKG at the peak infusion revealed no significant ST-T wave chnages. Sestamibi was injected 20 seconds after the Lexiscan infusion. Blood pressure at the end of the recovery phase was 120/83 mm Hg with a heart rate of 84 beats per minute. CONCLUSION: 1. No significant EKG changes with the] LexiScan infusion. 2. No LexiScan induced chest pain or cardiac arrhythmia. 3. Normal blood pressure and heart rate response. 4. Sestamibi/sestamibi perfusion scan pending; see separate report. Electronically Signed On 04-30-2023 12:25:42 CDT by Hetal Mason M.D. [id number]
[2023-04-27] MEDS: regadenoson 0.4 Mg/5 ml Syringe IVP (10:51)
[2023-04-27 10:52] VITALS: BP 120/83; PULSE 84
== END 2023-04-27 08:49 | disposition home or self-care (01) ==
LOC: CDL 08:49
PROVIDERS: PCP Internal Medicine; Visit Provider Internal Medicine
DX: R07.9 Chest pain, unspecified (principal)
CPT/HCPCS: 36415; 78452; 93017; 96374; A9500; J2785

== ENCOUNTER 2023-05-06 15:06 | Outpatient (CLI) | payer MEDICARE, OTHER, SELFPAY ==
--- NOTE | 2023-05-06 15:15 | XR_ITS ---
WS: [email or web address] SCREENING DEXA SCAN [place] CLINICAL INFORMATION: ASYMPTOMATIC POSTMENOPAUSAL STATUS COMPARISON: 2019 FINDINGS: The LEFT forearm bone mineral density measures 0.675. This corresponds to a T score score of -2.3 and Z score of -0.4. Left femoral neck bone mineral density measures 0.783 g/cm2. This corresponds to a T score of -1.8 an d Z score of -0.8. Right femoral neck bone mineral density measures 0.745 g/cm2. This corresponds to a T score -2.1of an d Z score of -1.1. Mean femoral neck bone mineral density measures 0.764 g/cm2. This corresponds to a T score of -1.9 an d Z score of -1.0. XR/XR DEXA axial skeleton* [id number] IMPRESSION: Osteopenia LEFT forearm approaching osteoporosis. Osteopenia femoral necks. Patient's FRAX calculated 10 year probability for major osteoporotic fracture i s 17.0 % and osteoporotic hip fracture is 3.1%. Bone mineral density LEFT forearm decreased -9.9% since 2019 Bone mineral density femoral necks increased 1.1% since 2019
== END 2023-05-06 15:07 | disposition home or self-care (01) ==
LOC: RAD 15:09
PROVIDERS: PCP Internal Medicine; Visit Provider Internal Medicine
DX: Z78.0 Asymptomatic menopausal state (principal)
CPT/HCPCS: 77080

== ENCOUNTER → 2023-05-08 10:29 | Outpatient (BNVA) | payer MEDICARE, OTHER, SELFPAY | PROVIDERS: PCP Internal Medicine; Visit Provider Internal Medicine Cardiovascular Disease | DX: R07.9 Chest pain, unspecified (principal); Z87.891 Personal history of nicotine dependence; R94.39 Abnormal result of other cardiovascular function study | CPT/HCPCS: 99213 ==

== ENCOUNTER 2023-05-19 10:44 | Outpatient (CLI) | payer MEDICARE, OTHER, SELFPAY ==
[2023-05-19 11:20] LABS: Basophils % 0.2 %; Eosinophils # 0.3 10^3/uL (0.0-0.8); Eosinophils % 2.9 %; Hematocrit 43.5 % (37.0-47.0); Lymphocytes # 1.8 10^3/uL (0.8-4.8); Lymphocytes % 18.7 %; Mean Corpuscular HGB Conc 32.2 g/dL (30.0-36.0); Mean Corpuscular Hemoglobin 28.6 pg (28.0-34.0); Mean Platelet Volume 8.6 fL (7.4-10.4); Monocytes # 0.6 10^3/uL (0.2-0.9); Monocytes % 6.1 %; Neutrophils # 6.72 10^3/uL (1.8-7.7); Neutrophils % 71.9 %; Nucleated Red Blood Cells % 0 %; Platelet Count 238 10^3/cmm (130-400); Red Blood Count 4.89 10^6/uL (4.1-5.3); Red Cell Distribution Width 14.2 % (12.1-15.1); White Blood Count 9.4 10^3/uL (4.0-10.0)
[2023-05-19 11:35] LABS: INR 0.96 (0.83-1.21)
[2023-05-19 11:41] LABS: Anion Gap 14.5 (5-19); Blood Urea Nitrogen 16 mg/dL (8-23); Calcium 8.8 mg/dL (8.5-10.5); Carbon Dioxide 23 mmol/L (22-29); Chloride 103 mmol/L (98-107); Glomerular Filtration Rate 98.8 mL/min (90-130); Glucose 100 mg/dL (65-115); Osmolality Calculated 283 mOsm/kg (285-295); Potassium 4.5 mmol/L (3.5-5.1); Sodium 136 mmol/L (136-145)
== END 2023-05-19 10:45 | disposition home or self-care (01) ==
LOC: RAD 10:49 → LAB 10:53
PROVIDERS: PCP Internal Medicine; Visit Provider Internal Medicine Cardiovascular Disease
DX: I21.9 Acute myocardial infarction, unspecified (principal); R94.39 Abnormal result of other cardiovascular function study; R58 Hemorrhage, not elsewhere classified
CPT/HCPCS: 36415; 80048; 85025; 85610

== ENCOUNTER 2023-05-27 07:24 | Outpatient (CLI) | payer MEDICARE, OTHER, SELFPAY ==
[2023-05-27] VITALS (15 sets, daily range): BP systolic 125–153; BP diastolic 75–100; PULSE 84–107; RESP 14–36; TEMP 36.8; O2SAT 92–97; BMI 38.0
--- NOTE | 2023-05-27 07:30 | XACV_ITS ---
Ht: 152 cm Wt: 87 kg BSA: 1.97 m2 Gender: Female : 1950 Any Known Allergies: Hydrocodone Exam Priority: Routine Procedure(s): Procedure Description: Diagnostic procedure Procedure Description: Left Heart Catheterization Procedure Description: Left ventriculography Procedure Description: Coronary Angiography Diagnostic Cath Status: Elective Diagnostic Findings * No disease noted in the Left Main, Left Anterior Descending, Right, or Circumflex coronary arteries. * Coronary angiography shows right dominance. Conclusions 1. No disease noted in the Left Main, Left Anterior Descending, Right, or Circumflex coronary arteries. 2. Normal left ventricular systolic function. Ejection fraction of 70%. Recommendations * Continue current medical management and risk factor modification. LV EDP: 21 mmHg Ventriculography Ejection Fraction: 70.0 % Left Ventriculography Findings: * Left ventriculogram was performed in SALAS view. * Normal left ventricular size and systolic function. Pressures Phase:Rest AO : 137 / 80 ( 104 ) @ 10:02:00 AM 151 / 84 ( 115 ) @ 10:17:00 AM 150 / 73 ( 111 ) @ 10:17:00 AM LV : 154 / -1 / 21 @ 10:16:00 AM 151 / -1 / 21 @ 10:17:00 AM 147 / -1 / 21 @ 10:17:00 AM Valves Phase:DefaultPhase AV : 0.0 @ 9:22:53 AM 0.0 @ 9:22:53 AM AV Mean Gradient: 0.0 @ 9:22:53 AM 0.0 @ 9:22:53 AM Clinical Evaluation EBL: 5mL-10mL Procedural Details Pre-Procedure Time Out. Identified patient by full name and date of as verbalized by the patient/guarantor. Does the consent match the physician's order: Yes. Accurate & Complete Informed Consent: Yes. Inpatient/Outpatient History & Physical on Chart: Yes. If H&P is completed, is and addenduem needed: No; If yes, is the addendum complete: N/A. Visualize and Verify Site with Patient/Guarantor: N/A. Relevant Radiology Images available: N/A. Pre-op teaching completed and patient verbalized understanding. The risks, benefits, and alternatives of sedation and/or procedure were discussed by physician. The patient agrees to continue. Procedure started. [facility] Clinical Fraility Score: 3: Managing Well. 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 Chest Pain Symptom Assessment: Atypical Angina. Cardiovascular Instability: No. Correct patient, site and procedure confirmed by cath team. PERRLA. Strong, equal hand spinal surgeon bilaterally. Lungs clear x 5 lobes. IV Site on Arrival: 20 gauge in the left anticubital. IV Fluids: 0.9% NaCl at KVO. 0 mL infused prior to cath lab tech. Pre Procedural Pulses: right dorsalis pedis was Doppled. Pre Procedural Pulses: left dorsalis pedis was 1+. Pre Procedural Pulses: bilateral radial was 1+. Pre Procedural Pulses: bilateral posterior tibial was 1+. Oxygen started at 2liters/min via nasal canula. right groin was prepped with chloroprep then draped in the usual sterile fashion. right radial was prepped with chloroprep then draped in the usual sterile fashion. Baseline sample Acquired. HR: 88 BPM. Physician notified. Equipment: 6F - Radial. Cardiac Cath Pack. ACIST Manifold Kit Model BT 2000. Heparinized Saline (2 units/mL), 1000 mL bag. Physician arrived. Physician scrubbed in. Immediate Pre-Procedure Time Out. Correct Patient: Yes; Correct Procedure: Yes; Correct Site: Yes; Correct Patient Position: Yes; Correct Supplies: Yes; Dried Flammable Prep: Yes; Blood Products Available: N/A;. Lidocaine 1% infiltrated to the right radial. Arterial access obtained. A 5 guamanian TIG catheter in over wire. Multiple views taken of left coronary artery. Catheter redirected to the RCA. Multiple views taken of right coronary artery. Catheter removed over the exchange wire. A 5 guamanian Angled Pig catheter in over wire. EDP Sample taken: LV 154/-2,21; HR: 91 BPM; SpO2: 96%. LV gram performed in SALAS @ 10 mL/second for a total of 30 mL. EDP Sample taken: LV 151/-2,21; HR: 91 BPM; SpO2: 95%. Pullback taken: LV 147/-2,21; AO 151/84(115); Mean: 0mmHg, Peak to Peak: 0mmHg, SEP: 8sec/min; HR: 94 BPM; SpO2: 95%. Catheter removed over the exchange wire. Physician scrubbed out. A TR Band was successful obtaining hemostatsis at the Right Radial artery insertion site. TR band placed. Hemostasis obtained. Post Procedure: Pulses reassessed and unchanged. PERRLA. Strong, equal hand spinal surgeon bilaterally. No VTE prophylaxis required. Medication's Wasted: Lidocaine 1% = 2 mL. Medication's Wasted: Nitro = 49.8 mg. Medication's Wasted: Heparin = 1000 units. Medication's Wasted: Other = versed 2 mg. Medication's Wasted: Other = fentanyl 100 mcg. Total IV fluids: 21 mL. Contrast type used: Omnipaque 300 mgI/mL, 500 mL bottle. Post-op diagnosis: normal coronaries. Complications: none. Estimated blood loss: 5mL-10mL. Responsiveness - Normal response to verbal stimuli; alert and oriented, PERRLA. Airway - Unaffected, no intervention required; spontaneous ventilation. Circulation: W/N/L, pulses unchanged. Nausea/Vomiting: No. Procedure completed. Patient transferred by stretcher to CPRU. Vital chart was stopped. Access Site Site: Right Radial artery Sheath Size: 6 Fr Hemostasis Method: TR Band Hemostasis Success: Successful Procedure Medications Start: 8:52 AM Stop: 8:52 AM Medication: Fentanyl Amount: 50 mcg Route: I.V. Start: 8:53 AM Stop: 8:53 AM Medication: Versed Amount: 1 mg Route: I.V. Start: 8:57 AM Stop: 8:57 AM Medication: Versed Amount: 1 mg Route: I.V. Start: 8:57 AM Stop: 8:57 AM Medication: Fentanyl Amount: 50 mcg Route: I.V. Start: 8:59 AM Stop: 8:59 AM Medication: Benadryl Amount: 50 mg Route: I.V. Start: 9:00 AM Stop: 9:00 AM Medication: Nitrogylcerin Amount: 200 mcg Route: I.A. I, the attending physician, have reviewed and verified all procedure medications. Yes, all medications given per verbal order History/Risk Factors Hypertension: Yes Dyslipidemia: Yes Peripheral Arterial Disease (PAD): No Myocardial Infarction (MN): No Obesity: No Renal Disease: No Tobacco Use: Former Prior Interventions PCI: No CABG: No Valve Surgery: No Report Signatures Finalized by Hetal Mason MD on 05/27/2023 12:59 PM
[2023-05-27] MEDS: aspirin 325 mg Tablet PO (08:15)
--- NOTE | 2023-05-27 08:56 | W.PM.OPSUD ---
Surgery/Procedure H&P Update DATE OF PROCEDURE: May 27, 2023 DATE H&P PERFORMED: 05/08/23 H&P UPDATE INFORMATION: I have reviewed H&P completed within last 30 days, I have examined patient prior to procedure and No changes to prior documentation CHANGES TO PREVIOUS DOCUMENTATION: Abnormal stress test, chest pain PREOP DIAGNOSIS: Abnormal stress test, chest pain PRIMARY INDICATION FOR PROCEDURE: Abnormal stress test, chest pain PLANNED PROCEDURE: Operation Date: 05/27/23 08:30 Proposed Procedures p [facility] 13289,R94.39(Left) - Hetal Mason MD PATIENT REASSESSED PRIOR TO SEDATION, WITH NO CHANGE NOTED: Yes PHYSICAL EXAM: alert, oriented x 3, clear to auscultation bilaterally and regular rate & rhythm AIRWAY EVAL/ANESTHESIA PLAN: normal airway, ASA III, Monitored Anesthesia, Local Anesthesia, Risks, benefits & alternatives of sedation and/or procedure discussed and Patient agrees to continue as planned
--- NOTE | 2023-05-27 09:30 | PC.NURSE ---
Around 0930, cpru nurse received pt from field laboratory operator post diagnostic [facility]. pt alert and oriented and complains of no plain. tr band on right wrist with distal pulses palpable. no bruising or hematoma noted. pt educated on restrictions of right wrist and pt stated understanding. pt to be educated by nurse throughout recovery as well. pt placed on monitors and will be monitored per protocol. plan is to dc home in approximately 3 hrs.
== END 2023-05-27 12:52 | disposition home or self-care (01) ==
PROVIDERS: PCP Internal Medicine; Visit Provider Internal Medicine Cardiovascular Disease
DX: R94.39 Abnormal result of other cardiovascular function study (principal); R07.9 Chest pain, unspecified; I10 Essential (primary) hypertension; E78.5 Hyperlipidemia, unspecified; Z87.891 Personal history of nicotine dependence
CPT/HCPCS: 36415; 93458; 96361; 96365; 99152; 99153; C1769; C1887; C1894; J1200; J1644; J2250; J3010; J3490; J7030; Q9967

== ENCOUNTER 2023-06-09 10:46 | Outpatient (RCR) | payer MEDICARE, OTHER, SELFPAY | END 2023-06-18 23:59 | disposition home or self-care (01) | LOC: SPT 10:46 | PROVIDERS: PCP Internal Medicine; Visit Provider Internal Medicine | DX: M50.30 Other cervical disc degeneration, unspecified cervical region (principal) | CPT/HCPCS: 97110; 97161 ==

== ENCOUNTER 2023-06-19 06:00 | Outpatient (RCR) | payer MEDICARE, OTHER, SELFPAY | END 2023-07-18 23:59 | disposition home or self-care (01) | LOC: SPT 06:00 | PROVIDERS: PCP Internal Medicine; Visit Provider Internal Medicine | DX: M50.30 Other cervical disc degeneration, unspecified cervical region (principal) | CPT/HCPCS: 97110 ==

== ENCOUNTER 2023-07-08 14:03 | Outpatient (CLI) | payer MEDICARE, OTHER, SELFPAY ==
--- NOTE | 2023-07-08 | XR_ITS ---
WS: [id number] XR chest 2V* [id number] REASON FOR EXAM: SHORTNESS OF BREATH FINDINGS: Chest is unchanged compared to 06/13/2022. Moderate tortuosity of the thoracic aorta. Normal heart size. Very large hiatal hernia with air-fluid level. Calcified granulomas disease in both hemithoraces. No acute/subacute pulmonary parenchymal or pleural abnormality. IMPRESSION: Stable chest without acute abnormality.
== END 2023-07-08 14:04 | disposition home or self-care (01) ==
PROVIDERS: PCP Internal Medicine; Visit Provider Internal Medicine
DX: R06.02 Shortness of breath (principal)
CPT/HCPCS: 71046

== ENCOUNTER 2023-07-13 07:55 | Outpatient (CLI) | payer MEDICARE, OTHER, SELFPAY ==
--- NOTE | 2023-07-13 08:02 | CT_ITS ---
WS: [id number] CT CERVICAL SPINE HISTORY: DEGENERATION OF CERVICAL INTERVERTEBRAL TECHNIQUE: Contiguous 2.0 mm axial imaging performed through the entire cervical spine. Sagittal and coronal reformats also performed. All CT scans at [facility] use at least one of these dose o ptimization techniques: automated exposure control; mA and/or kV adjustment per patient size (include s targeted exams where dose is matched to clinical indication); or iterative reconstruction. DLP: 141.87 mGy.cm COMPARISON: Neck CT 09/16/2021 Mild increase in the cervical lordosis and RIGHT curvature. RIGHT curvature has slightly increased si nce 2020. Posterior cervical alignment is normal. Severe degenerative disc space narrowing at C5-6 an d C6-7. Osteophytic ridging at the disc spaces with osteophytes encroaching upon the ventral cord at C5-6 and C6-7. No fractures. Craniocervical junction is normal. Lateral masses are aligned. Marked facet joint arthritis and narro wing on the LEFT at C6-7 and C7-T1. C2-C3: Very shallow central disc protrusion. C3-C4: Shallow central disc protrusion. No stenosis. C4-C5: Mild osteophytic ridging. Mild encroachment upon the RIGHT foramen by an osteophyte. No high-g rade stenosis. C5-C6: Osteophytic ridging encroaching upon the ventral cord and narrowing the foramina. Moderate to severe central with severe bilateral foraminal stenosis. C6-C7: Osteophytic ridging with osteophytes encroaching upon the cord. Moderate to severe central wit h severe bilateral foraminal stenosis, LEFT greater than RIGHT. C7-T1: Very mild foraminal narrowing. Enlarged RIGHT thyroid lobe with coarse calcifications. Similar findings on the prior study of 2020. Stable since 2017. IMPRESSION: 1. Slight increase in the RIGHT curvature cervical spine. 2. Advanced degenerative disc disease at C5-6 and C6-7 with osteophyte encroachment. 3. C5-6: Moderate to severe central with severe bilateral foraminal stenosis. 4. C6-7 moderate to severe central with severe bilateral foraminal stenosis, LEFT greater than RIGHT. 5. Enlarged RIGHT thyroid with nodule containing calcification. Stable since 2017. This can be evalua tulio by ultrasound.
== END 2023-07-13 07:56 | disposition home or self-care (01) ==
PROVIDERS: PCP Internal Medicine; Visit Provider Internal Medicine
DX: M50.30 Other cervical disc degeneration, unspecified cervical region (principal); M25.78 Osteophyte, vertebrae; M48.02 Spinal stenosis, cervical region; E04.1 Nontoxic single thyroid nodule
CPT/HCPCS: 72125

== ENCOUNTER 2023-07-19 06:00 | Outpatient (RCR) | payer MEDICARE, OTHER, SELFPAY | END 2023-08-18 23:59 | disposition home or self-care (01) | LOC: SPT 06:00 | PROVIDERS: PCP Internal Medicine; Visit Provider Internal Medicine | DX: M50.30 Other cervical disc degeneration, unspecified cervical region (principal) | CPT/HCPCS: 97110 ==

== ENCOUNTER 2023-08-19 06:00 | Outpatient (RCR) | payer MEDICARE, OTHER, SELFPAY | END 2023-09-17 23:59 | disposition home or self-care (01) | LOC: SPT 06:00 | PROVIDERS: PCP Internal Medicine; Visit Provider Internal Medicine | DX: M50.30 Other cervical disc degeneration, unspecified cervical region (principal) | CPT/HCPCS: 97110 ==

== ENCOUNTER 2023-08-20 14:34 | Emergency (ER) | payer MEDICARE, OTHER, SELFPAY ==
--- NOTE | 2023-08-20 14:44 | ECG_ITS ---
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 Measurements Intervals [place] Rate: 72 P: 5 CT: 166 QRS: -9 QRSD: 77 T: 9 QT: 357 QTc: 392 Interpretive Statements SINUS RHYTHM WITH SINUS ARRHYTHMIA LOW QRS VOLTAGE IN PRECORDIAL LEADS [QRS DEFLECTION < 1.0 mV IN CHEST LEADS] POSSIBLE ANTERIOR MYOCARDIAL INFARCTION , OF INDETERMINATE AGE [30 ms Q WAVE IN V3/V4, OR R < 0.2 mV IN V4] Compared to ECG 06/13/2022 12:15:40 Low QRS voltage now present Myocardial infarct finding still present Electronically Signed On 08-20-2023 14:58:02 CDT by Lisandro Nj M.D. [id number]
--- NOTE | 2023-08-20 14:45 | XRR_ITS ---
PROCEDURE INFORMATION: Exam: XR Chest Exam date and time: 08/20/2023 3:02 PM Age: 73 years old Clinical indication: Cough and dyspnea; Additional info: Dyspnea/cough TECHNIQUE: Imaging protocol: Radiologic exam of the chest. Views: 1 view. COMPARISON: CR XR chest 2V* [id number] 07/08/2023 2:17 PM FINDINGS: Tubes, catheters and devices: Previous spinal instrumentation. Lungs: Unremarkable. No consolidation. Pleural spaces: Unremarkable. No pleural effusion. No pneumothorax. Heart/Mediastinum: Moderate hiatal hernia. Bones/joints: Previous left rotator cuff surgery. XR/XR chest 1V portable [id number] IMPRESSION: No acute findings.
--- NOTE | 2023-08-20 14:45 | CT_ITS ---
WS: [id number] CT HEAD TECHNIQUE: Noncontrast CT of the head obtained from the skullbase to the vertex. CLINICAL INFORMATION: acute neuro change COMPARISON: None. DLP: 1074.[address] scans at [facility] use at least one of these dose optimization techniques: automated e xposure control; mA and/or kV adjustment per patient size (includes targeted exams where dose is matc hed to clinical indication); or iterative reconstruction. FINDINGS: No evidence of intracranial hemorrhage or mass effect. Ventricular system and basal cisterns are estrella nt. Mild small vessel changes with mild parenchymal volume loss. No extra-axial fluid collections. No evidence of mass or mass effect. Mastoid air cells are well aerated. Normal posterior nasopharynx. Intracranial vascular calcification . Mucosal thickening ethmoid air cells. LEFT maxillary sinusitis with inspissated secretions.] IMPRESSION: 1. No evidence of intracranial hemorrhage or mass effect. 2. LEFT maxillary sinusitis. 3. No acute intracranial findings.
[2023-08-20 14:46] VITALS: BP 151/98; PULSE 76; RESP 16; TEMP 36.7; O2SAT 95; BMI 36.8
--- NOTE | 2023-08-20 15:08 | W.ED.SOB ---
HPI - SOB/Dyspnea General: Chief Complaint: Shortness of Breath/Dyspnea Stated Complaint: Yissel sent for possible TIA Time Seen by Provider: 08/20/23 14:44 Source: patient and family Mode of arrival: EMS History of Present Illness: HPI Narrative: 73-year-old female presents emergency room with combination of vague complaints. She had some blurry vision and generalized weakness and headache. She went to see her PCP today and when she was there she was confused and somewhat disoriented and remember how she got to the clinic or why she was there. She was referred to the emergency room for further evaluation nurse practitioner seen earlier is concerned she may have had a TIA. Is a family member who is convinced that she has car monoxide poisoning. She denies any chest pain. She is short of breath over looking back at her old chart she has been chronically short of breath she has had extensive pulmonary and cardiac work-ups which did not appear to have shown significant abnormalities. She is mildly hypotensive she is on multiple antihypertensives as well as diuretics. Patient had echocardiogram and left ventriculogram that showed normal left ventricular function. She had a previous right heart catheterization showed mild pulmonary hypertension. No specific symptoms at the time she is seen. Exacerbating factors: nothing Relieving factors: nothing Associated symptoms: Deny abdominal pain, chest congestion, chest pain, cough, diaphoresis, dizziness, extremity pain, fever(s), hemoptysis, lightheadedness, myalgias, nausea, orthopnea, palpitations, paresthesias, polydipsia, polyuria, rash, sense of impending doom, syncope or vomiting Review of Systems Const: Denies: fever(s), chills or diaphoresis Card: Denies: chest pain, palpitations, lightheadedness, syncope or orthopnea Resp: Denies: dyspnea, hemoptysis or chest congestion GI: Denies: abdominal pain, nausea or vomiting : Denies: dysuria, urinary frequency or urinary urgency Musc: Denies: neck pain, back pain or extremity pain Skin/Breast: Denies: rash Neuro: Denies: dizziness Endo: Denies: polyuria or polydipsia [facility] ED PFSH: Medical History Abnormal stress test Chronic back pain Since 2016 and is undergoing evaluation by a spine surgeon-Dr. Mosquera Chronic hypertension Diagnosed in her 50s and follows up with Dr. Richard/Dr. Mason Congestive heart failure Medication followed by cardiology-Dr. Vasquez Diabetes mellitus Diagnosed in 50s and is diet controlled managed by PMD Diabetic peripheral neuropathy associated with type 2 diabetes mellitus Is on gabapentin managed by primary care provider Fibromyalgia Diagnosed in her 40s-not on any medication and follows with PMD Grief High cholesterol Diagnosed in her 50s managed by PMD Iron deficiency anemia Low income Major depressive disorder, recurrent severe without psychotic features Mild cognitive impairment, so stated No pertinent past medical history Denies diabetes, asthma, seizures, DVT/PE PCP: Dr. Jarvis Osteoarthritis Since her 50s and has mainly hip pain and follows with Dr. 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 Carlisle S/P bladder repair 2005---reports mesh was placed for incontinence by Dr. Butler at [facility] [place] S/P carpal tunnel release Bilateral Right-2011, left-2020 S/P hysterectomy 2005---vaginal hysterectomy with bilateral salpingo-oophorectomy by Dr. Butler at [facility] [place] for bleeding and prolapse S/P left knee arthroscopy 2004 S/P lumbar fusion X 2 05/29/16 01/15/17 S/P shoulder surgery Bilateral S/P trigger finger release Bilateral Right-2007 Left-2020 Status post colonoscopy (08/28/20) repeat in 10 years Family History Father , at age 65 Hyperlipidemia Cancer liver and prostate Mother Breast cancer diagnosed at age 65 Hyperlipidemia Hypertension Brother Diabetes Grandmother Stroke maternal Social History Smoking and tobacco/nicotine status: former use of tobacco/nicotine Alcohol intake: never Substance/Drug Use: never Marital status: Current occupational status: retired Do you think of yourself as: Straight/Heterosexual Physical Exam Const: GENERAL APPEARANCE: cooperative and comfortable ORIENTATION/CONSCIOUSNESS: Yes awake, Yes oriented to person, Yes oriented to place and Yes oriented to time HENMT: COMMON NORMALS: normocephalic, atraumatic and hearing grossly normal bilaterally HEAD & SCALP: normocephalic and atraumatic Resp: COMMON NORMALS: normal respiratory effort, No retractions, No use of accessory muscles and clear to auscultation bilaterally AUSCULTATION: clear to auscultation bilaterally Cardio: COMMON NORMALS: regular rate, regular rhythm and No murmurs present (Cardio) RATE: regular rate RHYTHM: regular rhythm GI: COMMON NORMALS: Soft to palpation and No hepatosplenomegaly present AUSCULTATION: Yes normoactive bowel sounds PALPATION: Yes Soft to palpation, No Tenderness to palpation present (GI), No Guarding due to palpation present (GI) and Yes No hepatosplenomegaly present Extremity: COMMON NORMALS: normal to inspection, capillary refill normal, no clubbing, cyanosis or edema, no calf tenderness and no pedal edema Neuro: SENSORIUM/ORIENTATION: Yes oriented to person, Yes oriented to place and Yes oriented to time Skin: COMMON NORMALS: no rashes or lesions noted GENERAL SKIN EXAM: no rashes or lesions noted Course Vital Signs: Vital signs: Vital Signs Temperature 98.1 F 08/20/23 14:46 Pulse Rate 69 08/20/23 15:33 Respiratory Rate 18 08/20/23 15:33 Blood Pressure 96/72 08/20/23 15:33 Pulse Oximetry 96 08/20/23 15:33 Oxygen Delivery Me thod Room Air 08/20/23 14:46 MDM - SOB/Dyspnea Medical Decision Making No signs of car monoxide poisoning at this time. I think patient is somewhat hypotensive which may be some of her issues caused this. She is feeling better at this point she has no evidence of stroke NIH is 0. And recommend that she stop her isosorbide and Lasix. Recommend that she take a baby aspirin daily. Follow-up with Dr. Stewart within the next week. Medical Records I reviewed the patient's medical records. Lab Data I reviewed the patient's lab results. 08/20/23 15:03 08/20/23 15:03 Labs/Radiology: Radiology Impressions Chest X-Ray 08/20/23 14:45 IMPRESSION: No acute findings. Laboratory Results WBC 6.87 10^3/uL (3.29-11.43) 08/20/23 15:03 RBC 4.23 10^6/uL (3.85-5.65) 08/20/23 15:03 Hgb 12.30 g/dL (11.27-16.99) 08/20/23 15:03 Hct 38.6 % (36-47) 08/20/23 15:03 MCV 91.3 fl (85-98) 08/20/23 15:03 MCH 29.1 pg (27-33) 08/20/23 15:03 MCHC 31.9 g/dL (30-55) 08/20/23 15:03 RDW 14.8 % (12.1-15.1) 08/20/23 15:03 Plt Count 249 10^3/cmm (157-399) 08/20/23 15:03 MPV 9.1 fL (7.4-10.4) 08/20/23 15:03 Neut % (Auto) 61.7 % 08/20/23 15:03 Lymph % (Auto) 28.5 % 08/20/23 15:03 [place] % (Auto) 7.7 % 08/20/23 15:03 Eos % (Auto) 1.6 % 08/20/23 15:03 Baso % (Auto) 0.4 % 08/20/23 15:03 Neut # (Auto) 4.23 10^3/uL (1.8-7.7) 08/20/23 15:03 Lymph # (Auto) 2.0 10^3/uL (0.8-4.8) 08/20/23 15:03 [place] # (Auto) 0.5 10^3/uL (0.2-0.9) 08/20/23 15:03 Eos # (Auto) 0.1 10^3/uL (0.0-0.8) 08/20/23 15:03 Baso # (Auto) 0.0 10^3/uL (0.0-0.1) 08/20/23 15:03 Nucleated RBC % (auto) 0 % 08/20/23 15:03 Nucleated RBCs # 0.0 /100WBC 08/20/23 15:03 Sodium 138 mmol/L (136-145) 08/20/23 15:03 Potassium 4.1 mmol/L (3.5-5.1) 08/20/23 15:03 Chloride 105 mmol/L (98-107) 08/20/23 15:03 Carbon Dioxide 21 mmol/L (22-29) L 08/20/23 15:03 Anion Gap 16.1 (5-19) 08/20/23 15:03 BUN 14 mg/dL (8-23) 08/20/23 15:03 Creatinine 0.6 mg/dL (0.5-0.9) 08/20/23 15:03 GFR Calculation Not Reportable 08/20/23 15:03 Glucose 174 mg/dL (65-115) H 08/20/23 15:03 Calculated Osmolality 291 mOsm/kg (285-295) 08/20/23 15:03 Calcium 9.3 mg/dL (8.5-10.5) 08/20/23 15:03 Total Bilirubin 0.4 mg/dL (0.15-1.2) 08/20/23 15:03 AST 25 U/L (0-32) 08/20/23 15:03 ALT 18 U/L (0-33) 08/20/23 15:03 Alkaline Phosphatase 67 U/L (35-105) 08/20/23 15:03 Total Protein 6.8 g/dL (6.6-8.7) 08/20/23 15:03 Albumin 4.2 g/dL (3.5-5.2) 08/20/23 15:03 Globulin 2.6 g/dL (1.3-4.6) 08/20/23 15:03 All radiology interpretation(s) finalized by discharge Discharge Plan Discharge Patient Disposition: Home Clinical Impression: Hypotension, Pulmonary hypertension, TIA (transient ischemic attack) Condition: Stable Prescriptions: Discontinued Lasix 20 mg tablet 20 mg PO DAILY isosorbide mononitrate 30 mg tablet extended release 24 hr 15 mg PO BID Qty: 90 3RF No Action multivitamin Tablet 1 tab PO DAILY hydroxyzine pamoate 25 mg capsule 25 mg PO Q8H PRN (Reason: unknown) nystatin 100,000 unit/gram powder 1 applic topical BID PRN (Reason: Yeast dermatitis) Qty: 15 0RF atorvastatin [Lipitor] 10 mg tablet 10 mg PO BEDTIME Qty: 90 1RF donepezil [Aricept] 5 mg tablet 5 mg PO DAILY Qty: 30 2RF aripiprazole [Abilify] 5 mg tablet 5 mg PO DAILY Qty: 30 2RF clonazepam 0.5 mg tablet 0.5 mg PO DAILY PRN (Reason: anxiety) Qty: 30 2RF alendronate 70 mg Tablet 70 mg PO Q7D cholecalciferol (vitamin D3) [Vitamin D3] 25 mcg (1,000 unit) Tablet 25 mcg PO DAILY carvedilol 6.25 mg tablet 6.25 mg PO DAILY Calcium 500 500 mg calcium (1,250 mg) Tablet 500 mg PO DAILY hydrocodone-acetaminophen 7.5-325 mg tablet 1 tab PO BID gabapentin 300 mg capsule 300 mg PO TID Xyzal 5 mg Tablet 5 mg PO DAILY PRN (Reason: Allergy Symptoms) Arnuity Ellipta 100 mcg/actuation blister with device 1 inh INHALATION DAILY Ozempic 0.25 mg or 0.5 mg (2 mg/3 mL) pen injector 0.25 mg SUBCUT Q7D Rx Instructions: on amlodipine 5 mg tablet 5 mg PO DAILY Paxil 40 mg tablet 40 mg PO BEDTIME zolpidem 6.25 mg tablet,ext release multiphase 6.25 mg PO BEDTIME Discharge Orders: Discharge ED (Routine); Ordered 08/20/23 Ordered By: Mart Nation Referrals: Shellie Jarvis MD [Primary Care Provider] - Discharge Diet: Usual diet Discharge Activity: Increase activity as tolerated Patient Instructions: Opioid Safety, Pain Management Activity Restrictions/Additional Instructions: Thank you for choosing [facility] for your healthcare needs today. Please realize this is an emergency room and that we are providing you with a medical screening exam and this may not be complete and all inclusive of all the testing and or work up that you may need to determine your ailment or severity of your illness. It is very important that you follow up as instructed or that you return to the Emergency Department should you have concerns or if your condition changes or worsens in any way. Based on your symptom history suspect you may have had a TIA CT of your head was negative. Case management will set up outpatient MRI. Recommend that you stop isosorbide mononitrate and Lasix. You should take a baby aspirin 81 mg daily. Follow-up with Dr. Stewart within the next week. Coding Level of Care Code ED [employer] for Keshav Saenz NIH stroke score NIHSS Level Of Consciousness - 1a: 0 Level Of Consciousness Questions - 1b: Both Correct Level Of Consciousness Commands - 1c: Both Correct Best Gaze - 2: Normal Visual Weber - 3: No Visual Loss Facial Palsy - 4: Normal Motor Arm Right - 5: No Drift Motor Arm Left - 5: No Drift Motor Leg Right - 6: No Drift Motor Leg Left - 6: No Drift Limb Ataxia - 7: Absent Sensory - 8: Normal Best Language - 9: No Aphasia Dysarthia - 10: Normal Extinction And Inattention - 11: 0 Score Total Score: 0
[2023-08-20 15:19] LABS: Basophils % 0.4 %; Eosinophils # 0.1 10^3/uL (0.0-0.8); Eosinophils % 1.6 %; Hematocrit 38.6 % (36-47); Lymphocytes % 28.5 %; Mean Corpuscular HGB Conc 31.9 g/dL (30-55); Mean Corpuscular Hemoglobin 29.1 pg (27-33); Mean Corpuscular Volume 91.3 fl (85-98); Mean Platelet Volume 9.1 fL (7.4-10.4); Monocytes # 0.5 10^3/uL (0.2-0.9); Monocytes % 7.7 %; Neutrophils # 4.23 10^3/uL (1.8-7.7); Neutrophils % 61.7 %; Nucleated Red Blood Cells % 0 %; Platelet Count 249 10^3/cmm (157-399); Red Blood Count 4.23 10^6/uL (3.85-5.65); Red Cell Distribution Width 14.8 % (12.1-15.1); White Blood Count 6.87 10^3/uL (3.29-11.43)
[2023-08-20 15:33] VITALS: BP 96/72; PULSE 69; RESP 18; O2SAT 96
[2023-08-20 15:49] LABS: Alanine Aminotransferase 18 U/L (0-33); Albumin Level 4.2 g/dL (3.5-5.2); Alkaline Phosphatase 67 U/L (35-105); Aspartate Amino Transferase 25 U/L (0-32); Blood Urea Nitrogen 14 mg/dL (8-23); Calcium 9.3 mg/dL (8.5-10.5); Carbon Dioxide 21 mmol/L (22-29); Chloride 105 mmol/L (98-107); Globulin 2.6 g/dL (1.3-4.6); Glucose 174 mg/dL (65-115); Osmolality Calculated 291 mOsm/kg (285-295); Sodium 138 mmol/L (136-145); Total Bilirubin 0.4 mg/dL (0.15-1.2); Total Protein 6.8 g/dL (6.6-8.7)
[2023-08-20 15:51] LABS: Anion Gap 16.1 (5-19); Potassium 4.1 mmol/L (3.5-5.1)
--- NOTE | 2023-08-20 16:30 | PC.PHAR ---
pt states she takes care of her own medications-pt states she is not sure of all the meds-notes are made in the pharmacy comments with last filled dates-pt states she found some boxes of alendronate 70mg q7d pt states still takes sometimes ext shows last filled 09/07/22 84d/s-pt states she takes carvedilol 6.25mg daily ext shows last filled 06/12/23 90d/s 6.25mg bid-pt states she has aricept 5mg dailly filled 07/30/23 30d/s pt states told her to stop taking-pt states she takes norco 7.5/325mg one tab bid ext shows last filled 08/06/23 30d/s 1 tab po five times a day prn-pt states she takes lasix 20mg daily ext shows last filled see pharmacy comment for last fill date-pt states she has an inhaler but doesnt use it ext shows arnuity filled 07/07/23 30d/s-see pharmacy comments
== END 2023-08-20 17:04 | disposition home or self-care (01) ==
PROVIDERS: Emergency Provider Family Medicine; PCP Internal Medicine
DX: G45.9 Transient cerebral ischemic attack, unspecified (principal); I27.20 Pulmonary hypertension, unspecified; I95.9 Hypotension, unspecified; Z87.891 Personal history of nicotine dependence; I11.0 Hypertensive heart disease with heart failure; I50.9 Heart failure, unspecified; E11.42 Type 2 diabetes mellitus with diabetic polyneuropathy
CPT/HCPCS: 70450; 71045; 80053; 85025; 93005; 99285

== ENCOUNTER → 2023-08-25 11:35 | Outpatient (BNVA) | payer MEDICARE, OTHER, SELFPAY | PROVIDERS: PCP Internal Medicine; Visit Provider Nurse Practitioner Family | DX: L82.1 Other seborrheic keratosis (principal); L57.8 Other skin changes due to chronic exposure to nonionizing radiation; L81.4 Other melanin hyperpigmentation; D22.5 Melanocytic nevi of trunk; L82.0 Inflamed seborrheic keratosis | CPT/HCPCS: 17110; 99213 ==

== ENCOUNTER → 2023-09-04 10:55 | Outpatient (BNVA) | payer MEDICARE, OTHER, SELFPAY | PROVIDERS: PCP Internal Medicine; Referring Provider Internal Medicine; Visit Provider Specialist | DX: G30.9 Alzheimer's disease, unspecified (principal); F02.A0 Dementia in other diseases classified elsewhere, mild, without behavioral disturbance, psychotic disturbance, mood disturbance, and anxiety | CPT/HCPCS: 96116; 99205 ==

== ENCOUNTER 2023-10-01 09:16 | Outpatient (CLI) | payer MEDICARE, OTHER, SELFPAY ==
--- NOTE | 2023-10-01 09:24 | MR_ITS ---
WS: [id number] MRI HEAD WITHOUT CONTRAST TECHNIQUE: Sagittal T1, T2 axial, T2 axial FLAIR, axial and coronal T1 images, axial susceptibility w eighted imaging, axial diffusion weighted images, and coronal T2 images were obtained. CLINICAL INFORMATION: TIA/HYPOTENSION COMPARISON: CT head 08/20/2023 FINDINGS: No evidence of restricted diffusion to suggest acute ischemia. Ventricular system and basal cisterns are patent. Mild small vessel changes. Moderate parenchymal volume loss. Normal posterior fossa. Norm al vascular flow voids at the skull base. No extra-axial fluid collections. No evidence of mass or ma ss effect. Mild mucosal thickening in the paranasal sinuses. Mastoid air cells are well aerated. Normal optic chiasm and pituitary infundibulum. Mild symmetric atrophy temporal lobes and hippocampal formations. No hemosiderin on susceptibly weighted images. IMPRESSION: 1. No evidence of restricted diffusion to suggest acute ischemia. 2. Mild small vessel changes with moderate parenchymal volume loss. 3. Mild mucosal thickening in the paranasal sinuses with LEFT maxillary sinusitis 4. No hemosiderin on the susceptibly weighted images. 5. No other suspicious findings.
== END 2023-10-01 09:17 | disposition home or self-care (01) ==
LOC: RAD 09:17
PROVIDERS: PCP Internal Medicine; Visit Provider Family Medicine
DX: G45.9 Transient cerebral ischemic attack, unspecified (principal); I95.9 Hypotension, unspecified
CPT/HCPCS: 70551

== ENCOUNTER 2023-10-26 13:43 | Outpatient (CLI) | payer MEDICARE, OTHER, SELFPAY ==
--- NOTE | 2023-10-26 13:49 | XRR_ITS ---
PROCEDURE INFORMATION: Exam: XR Chest Exam date and time: 10/26/2023 2:04 PM Age: 73 years old Clinical indication: Cough; Additional info: Uri-acute TECHNIQUE: Imaging protocol: Radiologic exam of the chest. Views: 2 views. COMPARISON: CR XR chest 1V portable [id number] 08/20/2023 3:02 PM FINDINGS: Lungs: There is no consolidation. Pleural spaces: There is no pleural effusion or pneumothorax. Heart/Mediastinum: There is a moderate size sliding-type hiatal hernia. Heart size is normal. Mediastinal and hilar contours are unremarkable. Bones/joints: Posterolateral fusion in the lumbar spine is partially imaged. There is a surgical anchor in the left humeral head. XR/XR chest 2V* [id number] IMPRESSION: 1. No acute findings. 2. Stable hiatal hernia compared to 08/20/2023.
[2023-10-26 16:22] LABS: Adenovirus Not Detected (NOT DETECT); Chlamydia Pneumoniae Not Detected (NOT DETECT); Coronavirus 229E,HKU1,NL63,OC4 Not Detected (NOT DETECT); Human Metapneumovirus Not Detected (NOT DETECT); Human Rhinovirus/Enterovirus Not Detected (NOT DETECT); Influenza A Not Detected (NOT DETECT); Influenza A H1 Not Detected (NOT DETECT); Influenza A H1-2009 Not Detected (NOT DETECT); Influenza A H3 Not Detected (NOT DETECT); Influenza B Not Detected (NOT DETECT); Mycoplasma Pneumoniae Not Detected (NOT DETECT); Parainfluenza Virus Type 1 Not Detected (NOT DETECT); Parainfluenza Virus Type 2 Not Detected (NOT DETECT); Parainfluenza Virus Type 3 Not Detected (NOT DETECT); Parainfluenza Virus Type 4 Not Detected (NOT DETECT); Respiratory Syncytial Virus A Not Detected (NOT DETECT); SARS-COV-2 Not Detected (NOT DETECT)
[2023-10-26 17:41] LABS: Respiratory Syncytial Virus B Detected (NOT DETECT)
== END 2023-10-26 13:44 | disposition home or self-care (01) ==
LOC: RAD 13:44
PROVIDERS: Visit Provider Nurse Practitioner Family
DX: J06.9 Acute upper respiratory infection, unspecified (principal); K44.9 Diaphragmatic hernia without obstruction or gangrene
CPT/HCPCS: 71046; 87486; 87581; 87633

== ENCOUNTER 2023-11-17 08:10 | Oncology outpatient (recurring) (ONCR) | payer MEDICARE, OTHER, SELFPAY ==
[2023-11-17] VITALS (7 sets, daily range): BP systolic 119–133; BP diastolic 69–79; PULSE 70–83; RESP 14–16; TEMP 37.1–37.3; O2SAT 96–98
[2023-11-17] MEDS: acetaminophen 500 mg Tablet PO (08:38)
[2023-11-17] MEDS: diphenhydrAMINE 25 mg Capsule PO (08:39)
[2023-11-17] MEDS: sodium chloride 0.9% 250 ML 50 ML IV (09:41)
== END 2023-11-18 23:59 | disposition home or self-care (01) ==
PROVIDERS: PCP Internal Medicine; Visit Provider Internal Medicine
DX: D50.9 Iron deficiency anemia, unspecified (principal); Z53.9 Procedure and treatment not carried out, unspecified reason
CPT/HCPCS: 36430; 86850; 86900; 86920; J7050; P9016

== ENCOUNTER → 2023-11-24 11:03 | Outpatient (BNVA) | payer MEDICARE, OTHER, SELFPAY | PROVIDERS: PCP Internal Medicine; Visit Provider Specialist | DX: G31.84 Mild cognitive impairment of uncertain or unknown etiology (principal) | CPT/HCPCS: 99213 ==

== ENCOUNTER 2023-12-22 10:37 | Outpatient (RCR) | payer MEDICARE, OTHER, SELFPAY | END 2024-01-17 23:59 | disposition home or self-care (01) | LOC: SPT 10:37 | PROVIDERS: Visit Provider Internal Medicine | DX: M50.30 Other cervical disc degeneration, unspecified cervical region (principal) | CPT/HCPCS: 97110; 97150; 97161 ==

== ENCOUNTER 2024-01-18 06:00 | Outpatient (RCR) | payer MEDICARE, OTHER, SELFPAY | END 2024-02-16 23:59 | disposition home or self-care (01) | LOC: SPT 06:00 | PROVIDERS: Visit Provider Internal Medicine | DX: M50.30 Other cervical disc degeneration, unspecified cervical region (principal) | CPT/HCPCS: 97110 ==

== ENCOUNTER 2024-02-17 06:00 | Outpatient (RCR) | payer MEDICARE, OTHER, SELFPAY | END 2024-03-18 23:59 | disposition home or self-care (01) | LOC: SPT 06:00 | PROVIDERS: PCP Internal Medicine; Visit Provider Internal Medicine | DX: M50.30 Other cervical disc degeneration, unspecified cervical region (principal) | CPT/HCPCS: 97110 ==

== ENCOUNTER 2024-02-22 10:02 | Outpatient (CLI) | payer MEDICARE, OTHER, SELFPAY ==
--- NOTE | 2024-02-22 10:16 | MM_ITS ---
WS: [id number] BILATERAL SCREENING DIGITAL TOMOSYNTHESIS MAMMOGRAM WITH CAD HISTORY: SCREENING COMPARISON: 02/19/2023, 02/13/2022, 06/22/2018 Bilateral CC and MLO views with tomosynthesis and synthetic mammography submitted. Computer aided det ection analyzed. Breast composition: There are scattered areas of fibroglandular density. No suspicious masses, microc alcifications or architectural distortion. Scattered asymmetries. High density nodule in the central LEFT breast posterior to the nipple has been present since 2018. No interval change. MM/[place] [id number] IMPRESSION: BI-RADS: 2-Benign FOLLOW UP: 1 Year Follow-up
== END 2024-02-22 10:03 | disposition home or self-care (01) ==
LOC: RAD 10:02
PROVIDERS: PCP Internal Medicine; Visit Provider Internal Medicine
DX: Z12.31 Encounter for screening mammogram for malignant neoplasm of breast (principal)
CPT/HCPCS: 77063; 77067

== ENCOUNTER 2024-03-03 06:00 | Outpatient (CLI) | payer MEDICARE, OTHER, SELFPAY | END 2024-03-03 06:01 | disposition home or self-care (01) | LOC: SPT 03-07 14:25 | PROVIDERS: PCP Internal Medicine; Visit Provider Nurse Practitioner Family | DX: Z46.89 Encounter for fitting and adjustment of other specified devices (principal) | CPT/HCPCS: L0637 ==

== ENCOUNTER → 2024-03-21 09:31 | Outpatient (BNVA) | payer MEDICARE, OTHER, SELFPAY | PROVIDERS: PCP Internal Medicine; Visit Provider Nurse Practitioner Family | DX: D48.5 Neoplasm of uncertain behavior of skin (principal); D18.01 Hemangioma of skin and subcutaneous tissue; L81.4 Other melanin hyperpigmentation; L57.0 Actinic keratosis; L82.0 Inflamed seborrheic keratosis | CPT/HCPCS: 11102; 17000; 17110; 99213 ==

== ENCOUNTER → 2024-04-15 11:24 | Outpatient (BNVA) | payer MEDICARE, OTHER, SELFPAY | PROVIDERS: PCP Internal Medicine; Visit Provider Specialist | DX: R41.3 Other amnesia (principal) | CPT/HCPCS: 96116; 99214; 99215 ==

== ENCOUNTER → 2024-06-07 09:49 | Outpatient (BNVA) | payer MEDICARE, OTHER, SELFPAY | PROVIDERS: PCP Internal Medicine; Visit Provider Physician Assistant | DX: M17.0 Bilateral primary osteoarthritis of knee; M25.561 Pain in right knee; M25.562 Pain in left knee; Z46.89 Encounter for fitting and adjustment of other specified devices | CPT/HCPCS: 20610; 73560; 73565; 99203; J3301 ==

== ENCOUNTER 2024-06-07 13:47 | Outpatient (CLI) | payer MEDICARE, OTHER, SELFPAY | END 2024-06-07 13:48 | disposition home or self-care (01) | LOC: SPT 13:47 | PROVIDERS: PCP Internal Medicine; Visit Provider Physician Assistant | DX: Z46.89 Encounter for fitting and adjustment of other specified devices (principal); M17.0 Bilateral primary osteoarthritis of knee | CPT/HCPCS: 97760; L1851 ==

== ENCOUNTER 2024-06-29 10:25 | Outpatient (CLI) | payer MEDICARE, OTHER, SELFPAY ==
--- NOTE | 2024-06-29 10:30 | XR_ITS ---
WS: [id number] XR chest 2V* [id number] REASON FOR EXAM: COUGH ACUTE COVID FINDINGS: The chest is unchanged compared to 10/26/2023. Mild tortuosity of the thoracic aorta with normal heart size. Large hiatal hernia. Calcified granulomas disease in both hemithoraces. There is flattening of the hemidiaphragms. No acute pulmonary parenchymal or pleural disease. XR/XR chest 2V* [id number] IMPRESSION: Stable chest without acute abnormality.
== END 2024-06-29 10:26 | disposition home or self-care (01) ==
LOC: RAD 10:29
PROVIDERS: PCP Internal Medicine; Visit Provider Nurse Practitioner Family
DX: R05.8 Other specified cough (principal); U07.1 COVID-19
CPT/HCPCS: 71046

== ENCOUNTER → 2024-09-08 09:50 | Outpatient (BNVA) | payer MEDICARE, OTHER, SELFPAY | PROVIDERS: PCP Internal Medicine; Visit Provider Physician Assistant | DX: M17.0 Bilateral primary osteoarthritis of knee (principal) | CPT/HCPCS: 20610; 99213; J3301 ==

== ENCOUNTER 2024-09-13 10:11 | Outpatient (CLI) | payer MEDICARE, OTHER, SELFPAY | END 2024-09-13 10:12 | disposition home or self-care (01) | PROVIDERS: PCP Internal Medicine; Visit Provider Nurse Practitioner Family | DX: R06.02 Shortness of breath (principal) | CPT/HCPCS: 94010 ==

== ENCOUNTER → 2024-10-04 09:45 | Outpatient (BNVA) | payer MEDICARE, OTHER, SELFPAY | PROVIDERS: PCP Internal Medicine; Visit Provider Specialist | DX: R41.3 Other amnesia (principal); R03.0 Elevated blood-pressure reading, without diagnosis of hypertension; F32.A Depression, unspecified | CPT/HCPCS: 36415; 82542; 82607; 83520; 99214 ==

== ENCOUNTER → 2024-10-26 15:18 | Outpatient (BNVA) | payer MEDICARE, OTHER, SELFPAY | PROVIDERS: PCP Internal Medicine; Visit Provider Nurse Practitioner Family | DX: L21.8 Other seborrheic dermatitis (principal); L81.4 Other melanin hyperpigmentation; L82.0 Inflamed seborrheic keratosis; L29.89 Other pruritus; Z78.9 Other specified health status; L53.8 Other specified erythematous conditions | CPT/HCPCS: 17110; 99213 ==

== ENCOUNTER 2024-11-15 07:47 | Outpatient (CLI) | payer MEDICARE, OTHER, SELFPAY | END 2024-11-15 07:48 | disposition home or self-care (01) | LOC: RT 07:47 | PROVIDERS: PCP Internal Medicine; Visit Provider Internal Medicine | DX: R06.02 Shortness of breath (principal) | CPT/HCPCS: 94010; 94726; 94729 ==

== ENCOUNTER → 2024-12-13 10:45 | Outpatient (BNVA) | payer MEDICARE, OTHER, SELFPAY | PROVIDERS: PCP Internal Medicine; Visit Provider Physician Assistant | DX: M17.0 Bilateral primary osteoarthritis of knee (principal); Z71.89 Other specified counseling | CPT/HCPCS: 20610; 99213; J3301 ==

== ENCOUNTER 2024-12-17 06:30 | Outpatient (RCR) | payer MEDICARE, OTHER, SELFPAY | END 2025-01-16 23:59 | disposition home or self-care (01) | LOC: SPT 06:30 | PROVIDERS: PCP Internal Medicine; Visit Provider Specialist | DX: M54.9 Dorsalgia, unspecified (principal) | CPT/HCPCS: 97161 ==

== ENCOUNTER → 2024-12-27 15:06 | Outpatient (BNVA) | payer MEDICARE, OTHER, SELFPAY | PROVIDERS: PCP Internal Medicine; Visit Provider Specialist | DX: G31.84 Mild cognitive impairment of uncertain or unknown etiology (principal); M54.9 Dorsalgia, unspecified; R41.3 Other amnesia; R03.0 Elevated blood-pressure reading, without diagnosis of hypertension | CPT/HCPCS: 99214 ==

== ENCOUNTER 2025-01-17 13:34 | Outpatient (RCR) | payer MEDICARE, OTHER, SELFPAY | END 2025-02-15 23:59 | disposition home or self-care (01) | LOC: SPT 13:34 | PROVIDERS: PCP Internal Medicine; Visit Provider Specialist | DX: M54.9 Dorsalgia, unspecified (principal) | CPT/HCPCS: 97110 ==

== ENCOUNTER 2025-02-16 05:00 | Outpatient (RCR) | payer MEDICARE, OTHER, SELFPAY | END 2025-03-18 23:59 | disposition home or self-care (01) | LOC: SPT 05:00 | PROVIDERS: PCP Internal Medicine; Visit Provider Specialist | DX: M54.9 Dorsalgia, unspecified (principal) | CPT/HCPCS: 97110; 97150 ==

== ENCOUNTER 2025-02-22 08:44 | Outpatient (CLI) | payer MEDICARE, OTHER, SELFPAY ==
--- NOTE | 2025-02-22 08:47 | MM_ITS ---
WS: [id number] BILATERAL SCREENING DIGITAL TOMOSYNTHESIS MAMMOGRAM WITH CAD HISTORY: SCREENING COMPARISON: 06/22/2018, 02/22/2024, 02/19/2023 and 02/13/2022 Bilateral CC and MLO views with tomosynthesis and synthetic mammography submitted. Computer aided detection analyzed. Breast composition: There are scattered areas of fibroglandular density. No suspicious masses, microcalcifications or architectural distortion. Focal asymmetry is very dense posterior to the LEFT nipple but been present since at least 2018. No new areas of asymmetry or distortion. Benign calcifications. MM/MM scr tomosynthesis [id number] IMPRESSION: BI-RADS: 2 - Benign. FOLLOW UP: 1 Year Follow-up
== END 2025-02-22 08:45 | disposition home or self-care (01) ==
PROVIDERS: PCP Internal Medicine; Visit Provider Internal Medicine
DX: Z12.31 Encounter for screening mammogram for malignant neoplasm of breast (principal); R92.323 Mammographic fibroglandular density, bilateral breasts; N64.89 Other specified disorders of breast; R92.1 Mammographic calcification found on diagnostic imaging of breast
CPT/HCPCS: 77063; 77067

== ENCOUNTER → 2025-03-14 10:45 | Outpatient (BNVA) | payer MEDICARE, OTHER, SELFPAY | PROVIDERS: PCP Internal Medicine; Visit Provider Physician Assistant | DX: M17.0 Bilateral primary osteoarthritis of knee (principal); Z71.89 Other specified counseling | CPT/HCPCS: 20610; 99213; J3301; J9999 ==

== ENCOUNTER → 2025-04-11 09:37 | Outpatient (BNVA) | payer MEDICARE, OTHER, SELFPAY | PROVIDERS: PCP Internal Medicine; Visit Provider Nurse Practitioner Family | DX: L21.8 Other seborrheic dermatitis (principal); L57.8 Other skin changes due to chronic exposure to nonionizing radiation; L81.4 Other melanin hyperpigmentation; L82.0 Inflamed seborrheic keratosis; R20.8 Other disturbances of skin sensation; Z78.9 Other specified health status; L29.89 Other pruritus; R58 Hemorrhage, not elsewhere classified; L53.8 Other specified erythematous conditions | CPT/HCPCS: 17110; 99213 ==

== ENCOUNTER → 2025-04-25 14:07 | Outpatient (BNVA) | payer MEDICARE, OTHER, SELFPAY | PROVIDERS: PCP Internal Medicine; Visit Provider Specialist | DX: G31.84 Mild cognitive impairment of uncertain or unknown etiology (principal); M54.9 Dorsalgia, unspecified | CPT/HCPCS: 96116; 99214 ==

== ENCOUNTER → 2025-06-20 08:21 | Outpatient (BNVA) | payer MEDICARE, OTHER, SELFPAY | PROVIDERS: PCP Internal Medicine; Visit Provider Physician Assistant | DX: M17.0 Bilateral primary osteoarthritis of knee (principal); Z71.89 Other specified counseling | CPT/HCPCS: 20610; 99213; J3301; J9999 ==

== ENCOUNTER → 2025-09-20 14:56 | Outpatient (BNVA) | payer MEDICARE, OTHER, SELFPAY | PROVIDERS: PCP Internal Medicine; Visit Provider Physician Assistant | DX: M17.0 Bilateral primary osteoarthritis of knee (principal) | CPT/HCPCS: 20610; 99213; J3301; J9999 ==